=== PATIENT | female | born 1950 | race Caucasian/White ===

== ENCOUNTER 2016-12-20 17:41 | Emergency (ER) | payer MEDICARE, MEDICAID ==
[~2016-12-20] VITALS: Ht 177.8 cm; Wt 87.3 kg
[~2016-12-20 17:41] MED LIST: AMOXICILLIN 50500 MG PO; CATAPRES 0.1MG0.1 MG PO; CATAPRES0.2 MG PO; CEFTIN 250250 MG/TAB PO; CEFTIN500 MG PO; COREG 3.123.125 MG/T PO; FLAGYL500 MG PO; FLEXERIL 1010 MG/TAB PO; KLONOPIN 0.5MG0.5 MG PO; KLOR-CON 1010 MEQ PO; LASIX 20MG TABL20 MG PO; LEVAQUIN 750MG750 M1 PO; MAGNESIUM100 MG PO; MOBIC15 MG PO; NORCO 325 MG-51 TAB PO; NORCO 325 MG-7.1 TAB PO; PERCOCET 325 MG1 TA2 PO; PREDNISONE20 MG PO; PRINIVIL40 MG PO; PYRIDIUM 100MG100 MG PO; PYRIDIUM200 M1 PO; RESTORIL 77.5 MG/CAP PO; TYLENOL PM EXTR1 TA1 PO; ULTRAM 50MG TAB50 MG PO; VENTOLIN0.09 MG IH
[2016-12-20 17:44] VITALS: TEMP 98.3
[2016-12-20] MEDS ORDERED: ASPIRIN 81M81 MG/TA2 PO (17:53)
[2016-12-20] MEDS ORDERED: MAGCITRATE PO (17:58)
[2016-12-20] MEDS ORDERED: MAG-OX 400400 MG/TAB PO (18:18)
[2016-12-20 18:20] VITALS: BP 173/93; PULSE 58
[2016-12-25] MEDS ORDERED: CEPHALEXIN500 M1 PO (14:58)
== END 2016-12-20 18:27 | disposition home or self-care (01) ==
LOC: COL.ER 17:41
DX: K60.2 Anal fissure, unspecified (principal); K64.4 Residual hemorrhoidal skin tags; K59.00 Constipation, unspecified; I25.10 Atherosclerotic heart disease of native coronary artery without angina pectoris; I10 Essential (primary) hypertension; Z95.1 Presence of aortocoronary bypass graft

== ENCOUNTER 2016-12-22 12:42 | Emergency (ER) | payer MEDICARE, MEDICAID ==
[~2016-12-22] VITALS: Ht 177.8 cm; Wt 87.3 kg
[~2016-12-22 12:42] MED LIST changes: +ASPIRIN 81M81 MG/TA2 PO; +MAG-OX 400400 MG/TAB PO; +MAGCITRATE PO
[2016-12-22 12:47] VITALS: TEMP 98.5
[2016-12-22 14:06] LABS: BASO # 0.1 (0.0-0.2); BASO % 0.6 % (0.0-2.0); EOS # 0.1 (0.0-0.7); EOS % 1.2 % (0-4.0); GRAN # 6.7 (1.4-6.5); GRAN % 59.5 % (42.2-75.2); HEMATOCRIT 39.1 % (37.0-47.0); HEMOGLOBIN 13.3 g/dl (12.5-16.0); LYMPH # 3.2 (1.2-3.4); LYMPH % 28.6 % (20.0-51.0); MEAN CELL VOLUME 102 fl (80.0-100.0); MEAN CORPUSCULAR HEMOGLOBIN 35 pg (27.0-31.0); MEAN CORPUSCULAR HGB CONC 34 g/dl (33.0-37.0); MEAN PLATELET VOLUME 10.5 fl (7.4-10.4); MONO # 1.1 (0.1-0.6); MONO % 9.8 % (1.7-9.3); PLATELET COUNT 239 K/mm3 (130-400); RED BLOOD COUNT 3.83 M/mm3 (4.10-5.30); REDCELL DISTRIBUTION WIDTH-CV 14.8 % (11.5-14.5); WHITE BLOOD COUNT 11.3 K/mm3 (4.8-10.8)
[2016-12-22 14:17] LABS: ALBUMIN 3.8 gm/dL (3.5-5.0); BILIRUBIN,TOTAL 0.8 mg/dL (0.0-1.0); C-REACTIVE PROTEIN 1.3 mg/dL (0.0-0.9); CALCIUM 8.8 mg/dL (8.4-10.2); CREATININE, serum 0.6 mg/dL (0.52-1.25); POTASSIUM 3.8 mmol/L (3.4-5.0); TOTAL PROTEIN 6.8 gm/dL (6.4-8.2)
[2016-12-22 14:47] LABS: PH 7 (5-8); SQUAMOUS EPITHELIAL None Seen /hpf; URINE APPEARANCE Clear; URINE BACTERIA Rare /hpf; URINE BILIRUBIN Negative (NEGATIVE); URINE BLOOD Negative (NEGATIVE); URINE COLOR Yellow; URINE GLUCOSE Negative (NEGATIVE); URINE KETONE Negative (NEGATIVE); URINE RBC 0-2 /hpf; URINE UROBILINOGEN Negative (NEGATIVE)
[2016-12-22 14:52] LABS: URINE WBC 20-50 /hpf
[2016-12-22] MEDS ORDERED: FLAGYL500 MG PO (15:27)
[2016-12-22] MEDS ORDERED: NORCO 325 MG-51 TAB PO (15:27)
[2016-12-22] MEDS ORDERED: ZOFRAN 4MG T4 MG/TAB PO (15:27)
[2016-12-22] MEDS ORDERED: CIPRO 500MG TA500 MG PO (15:27)
[2016-12-22 16:20] VITALS: BP 186/96; PULSE 64
[2016-12-25] MEDS ORDERED: CEPHALEXIN500 M1 PO (14:58)
== END 2016-12-22 16:22 | disposition home or self-care (01) ==
LOC: COL.ER 12:42
PROVIDERS: Emergency Medicine
DX: R10.84 Generalized abdominal pain (principal); R63.0 Anorexia; R11.2 Nausea with vomiting, unspecified
CPT/HCPCS: J2405; J3010; J7030; Q9967

== ENCOUNTER 2016-12-30 11:24 | Inpatient (IN) | payer MEDICARE, MEDICAID ==
[~2016-12-30] VITALS: Ht 177.8 cm; Wt 87.3 kg
[~2016-12-30 11:24] MED LIST changes: +CEPHALEXIN500 M1 PO; +CIPRO 500MG TA500 MG PO; +ZOFRAN 4MG T4 MG/TAB PO
[2016-12-30] MEDS ORDERED: DULCOLAX TAB5 MG PO (11:58)
[2016-12-30 12:11] LABS: BASO # 0.1 (0.0-0.2); BASO % 0.8 % (0.0-2.0); EOS # 0.1 (0.0-0.7); GRAN # 6.1 (1.4-6.5); GRAN % 59.3 % (42.2-75.2); HEMATOCRIT 46.2 % (37.0-47.0); HEMOGLOBIN 15.5 g/dl (12.5-16.0); LYMPH % 29.4 % (20.0-51.0); MEAN CELL VOLUME 103 fl (80.0-100.0); MEAN CORPUSCULAR HEMOGLOBIN 35 pg (27.0-31.0); MEAN CORPUSCULAR HGB CONC 34 g/dl (33.0-37.0); MEAN PLATELET VOLUME 9.9 fl (7.4-10.4); MONO # 0.9 (0.1-0.6); PLATELET COUNT 332 K/mm3 (130-400); RED BLOOD COUNT 4.47 M/mm3 (4.10-5.30); REDCELL DISTRIBUTION WIDTH-CV 14.7 % (11.5-14.5); WHITE BLOOD COUNT 10.3 K/mm3 (4.8-10.8)
[2016-12-30 12:30] LABS: ADJUSTED CALCIUM 9.5 mg/dL (8.4-10.2); ALANINE AMINOTRANSFERASE 41 U/L (9-52); ALBUMIN 4.1 gm/dL (3.5-5.0); ALKALINE PHOSPHATASE 107 U/L (50-136); ANION GAP 10 mmol/L (7-16); BILIRUBIN,TOTAL 0.8 mg/dL (0.0-1.0); BLOOD UREA NITROGEN 8 mg/dL (7-17); C-REACTIVE PROTEIN < 0.5 mg/dL (0.0-0.9); CALCIUM 9.6 mg/dL (8.4-10.2); CARBON DIOXIDE 21 mmol/L (22-30); CHLORIDE 108 mmol/L (98-107); CREATININE, serum 0.73 mg/dL (0.52-1.25); GLUCOSE 102 mg/dL (74-106); LIPASE 51 U/L (23-300); POTASSIUM 3.9 mmol/L (3.4-5.0); SODIUM 139 mmol/L (137-145); TOTAL PROTEIN 7.6 gm/dL (6.4-8.2)
[2016-12-30 13:14] LABS: PH 6 (5-8); SQUAMOUS EPITHELIAL 0-2 /hpf; URINE APPEARANCE Hazy; URINE BACTERIA Many /hpf; URINE BILIRUBIN Negative (NEGATIVE); URINE BLOOD Negative (NEGATIVE); URINE COLOR Yellow; URINE GLUCOSE Negative (NEGATIVE); URINE KETONE Trace (NEGATIVE); URINE RBC 0-2 /hpf; URINE UROBILINOGEN Negative (NEGATIVE)
[2016-12-30 13:15] LABS: URINE WBC 20-50 /hpf
[2016-12-30 15:57] VITALS: BP 195/85; PULSE 59; TEMP 98.1
[2016-12-30] MEDS ORDERED: VITAMIN B COMPL1 SGL PO (16:01)
[2016-12-30] MEDS ORDERED: VITAMIN E 400 U4001 PO (16:02)
[2016-12-30] MEDS ORDERED: VITAMIN D 400400 IU PO (16:02)
[2016-12-30] MEDS ORDERED: VITAMIN K0.1 MG (16:03)
[2016-12-30] MEDS ORDERED: COLLAGEN PO (16:08)
[2016-12-30 16:26] VITALS: BP 150/63; PULSE 65
[2016-12-30 17:07] VITALS: BP 155/65; PULSE 58; TEMP 98.1
[2016-12-30 18:02] LABS: B-TYPE NATRIURETIC PEPTIDE 692 pg/mL (0-125)
[2016-12-30 20:55] VITALS: BP 163/67; PULSE 57; TEMP 98.5
[2016-12-31 02:20] VITALS: BP 172/76; PULSE 57; TEMP 97.5
[2016-12-31 05:04] VITALS: BP 174/77; PULSE 68; TEMP 98.2
[2016-12-31 05:51] VITALS: BP 157/51; PULSE 67
[2016-12-31 17:02] VITALS: BP 137/67; PULSE 90; TEMP 98.2
[2016-12-31 21:39] VITALS: BP 146/72; PULSE 84; TEMP 99.3
[2017-01-01 02:00] VITALS: BP 154/70; PULSE 79; TEMP 98.9
[2017-01-01 06:03] VITALS: BP 175/73; PULSE 87; TEMP 98
[2017-01-01 09:34] VITALS: BP 160/63; PULSE 75; TEMP 98.1
[2017-01-01 13:33] VITALS: BP 154/73; PULSE 80; TEMP 99.1
[2017-01-01 17:26] VITALS: BP 161/73; PULSE 80; TEMP 98.9
[2017-01-01 21:43] VITALS: BP 155/75; PULSE 81; TEMP 98.5
[2017-01-02] VITALS (10 sets, daily range): BP systolic 116–178; BP diastolic 58–86; PULSE 52–97; TEMP 97.5–98.9
== END 2017-01-02 17:25 | disposition home or self-care (01) | DRG 394 ==
LOC: COL.ER 11:24 → SURG 14:22
PROVIDERS: Emergency Medicine; Internal Medicine Gastroenterology
PROC: 0DJD8ZZ Inspection of Lower Intestinal Tract, Via Natural or Artificial Opening Endoscopic (ICD-10-PCS; 2016-12-31)
PROC: 0DBL8ZX Excision of Transverse Colon, Via Natural or Artificial Opening Endoscopic, Diagnostic (ICD-10-PCS; 2017-01-02)
PROC: 0DBM8ZX Excision of Descending Colon, Via Natural or Artificial Opening Endoscopic, Diagnostic (ICD-10-PCS; 2017-01-02)
PROC: 0DBK8ZX Excision of Ascending Colon, Via Natural or Artificial Opening Endoscopic, Diagnostic (ICD-10-PCS; principal; 2017-01-02 12:00)
DX: D12.2 Benign neoplasm of ascending colon (principal); K57.32 Diverticulitis of large intestine without perforation or abscess without bleeding; K57.30 Diverticulosis of large intestine without perforation or abscess without bleeding; D12.3 Benign neoplasm of transverse colon; D12.4 Benign neoplasm of descending colon; I10 Essential (primary) hypertension; I25.10 Atherosclerotic heart disease of native coronary artery without angina pectoris; Z95.1 Presence of aortocoronary bypass graft; Z87.891 Personal history of nicotine dependence; F41.9 Anxiety disorder, unspecified; K64.0 First degree hemorrhoids
CPT/HCPCS: 99222-AI; 99232-AI; 99233-AI; 99239; J0360; J0696; J1650; J2060; J2270; J2405; J2704; J3010; J7030; Q9967

== ENCOUNTER 2017-08-31 13:03 | Observation (INO) | payer MEDICARE, MEDICAID ==
[~2017-08-31] VITALS: Ht 177.8 cm; Wt 73.4 kg
[~2017-08-31 13:03] MED LIST changes: +COLLAGEN PO; +DULCOLAX TAB5 MG PO; +VITAMIN B COMPL1 SGL PO; +VITAMIN D 400400 IU PO; +VITAMIN E 400 U4001 PO; +VITAMIN K0.1 MG
[2017-08-31 13:51] LABS: BASO # 0.1 (0.0-0.2); BASO % 0.5 % (0.0-2.0); EOS # 0.1 (0.0-0.7); EOS % 0.6 % (0-4.0); GRAN # 6.6 (1.4-6.5); GRAN % 57.3 % (42.2-75.2); HEMATOCRIT 43.6 % (37.0-47.0); HEMOGLOBIN 14.5 g/dl (12.5-16.0); LYMPH # 3.9 (1.2-3.4); LYMPH % 33.6 % (20.0-51.0); MEAN CELL VOLUME 107 fl (80.0-100.0); MEAN CORPUSCULAR HEMOGLOBIN 36 pg (27.0-31.0); MEAN CORPUSCULAR HGB CONC 33 g/dl (33.0-37.0); MONO # 0.9 (0.1-0.6); MONO % 7.7 % (1.7-9.3); PLATELET COUNT 281 K/mm3 (130-400); RED BLOOD COUNT 4.07 M/mm3 (4.10-5.30); REDCELL DISTRIBUTION WIDTH-CV 13.6 % (11.5-14.5)
[2017-08-31 13:58] LABS: ALANINE AMINOTRANSFERASE 50 U/L (9-52); ALBUMIN 4.6 gm/dL (3.5-5.0); ALKALINE PHOSPHATASE 115 U/L (50-136); ANION GAP 11 mmol/L (7-16); AST,SGOT 52 U/L (15-37); BILIRUBIN,TOTAL 0.6 mg/dL (0.0-1.0); BLOOD UREA NITROGEN 15 mg/dL (7-17); CALCIUM 10.1 mg/dL (8.4-10.2); CARBON DIOXIDE 19 mmol/L (22-30); CHLORIDE 113 mmol/L (98-107); CREATININE, serum 0.72 mg/dL (0.52-1.25); GLUCOSE 108 mg/dL (74-106); POTASSIUM 4.3 mmol/L (3.4-5.0); SODIUM 144 mmol/L (137-145)
[2017-08-31 14:05] LABS: PROTHROMBIN TIME 11.9 SECONDS (9.7-12.8)
[2017-08-31 14:13] LABS: TROPONIN-I < 0.012 ng/mL (0.000-0.034)
[2017-08-31 17:57] VITALS: BP 152/89; PULSE 69; TEMP 98
[2017-08-31 19:22] VITALS: BP 119/55; BP 133/82; PULSE 66; PULSE 84; TEMP 97; TEMP 97.2
[2017-08-31 23:17] VITALS: BP 129/68; PULSE 80; TEMP 97.5
[2017-09-01 03:40] VITALS: BP 134/74; PULSE 74; TEMP 97.6
[2017-09-01 03:41] LABS: COLLECTION METHOD CLEAN CATCH
[2017-09-01 03:48] LABS: PH 5 (5-8); URINE APPEARANCE Clear; URINE BILIRUBIN Negative (NEGATIVE); URINE BLOOD 1+ (NEGATIVE); URINE COLOR Amber; URINE GLUCOSE Negative (NEGATIVE); URINE KETONE Negative (NEGATIVE); URINE LEUKOCYTE ESTERASE Trace (NEGATIVE); URINE NITRATE Positive (NEGATIVE); URINE PROTEIN(semi-quant) Negative (NEGATIVE); URINE UROBILINOGEN Negative (NEGATIVE)
[2017-09-01 03:53] LABS: URINE BACTERIA Many /hpf; URINE RBC None Seen /hpf
[2017-09-01 06:59] LABS: BASO # 0.1 (0.0-0.2); BASO % 1.1 % (0.0-2.0); EOS # 0.1 (0.0-0.7); GRAN # 4.8 (1.4-6.5); GRAN % 48.3 % (42.2-75.2); HEMATOCRIT 40.4 % (37.0-47.0); HEMOGLOBIN 13.3 g/dl (12.5-16.0); LYMPH # 3.9 (1.2-3.4); LYMPH % 39.7 % (20.0-51.0); MEAN CELL VOLUME 107 fl (80.0-100.0); MEAN CORPUSCULAR HEMOGLOBIN 35 pg (27.0-31.0); MEAN CORPUSCULAR HGB CONC 33 g/dl (33.0-37.0); MEAN PLATELET VOLUME 10.5 fl (7.4-10.4); MONO # 0.9 (0.1-0.6); MONO % 9.4 % (1.7-9.3); PLATELET COUNT 269 K/mm3 (130-400); RED BLOOD COUNT 3.76 M/mm3 (4.10-5.30); REDCELL DISTRIBUTION WIDTH-CV 13.7 % (11.5-14.5)
[2017-09-01 07:12] LABS: ANION GAP 5 mmol/L (7-16); BLOOD UREA NITROGEN 14 mg/dL (7-17); CALCIUM 9.7 mg/dL (8.4-10.2); CARBON DIOXIDE 23 mmol/L (22-30); CHLORIDE 111 mmol/L (98-107); CHOLESTEROL 222 mg/dL (120-200); CHOLESTEROL RISK RATIO 7.9; CREATININE, serum 0.81 mg/dL (0.52-1.25); GLUCOSE 96 mg/dL (74-106); HDL CHOLESTEROL 28 mg/dL; LDL CHOLESTEROL 148 mg/dL; POTASSIUM 4.1 mmol/L (3.4-5.0); SODIUM 139 mmol/L (137-145); TRIGLYCERIDE 229 mg/dL
[2017-09-01 07:24] LABS: TROPONIN-I < 0.012 ng/mL (0.000-0.034)
[2017-09-01 07:45] VITALS: BP 117/74; PULSE 66; TEMP 97
[2017-09-01 08:32] VITALS: BP 134/74; PULSE 74
[2017-09-01 09:51] VITALS: BP 128/60; PULSE 94
[2017-09-01 09:52] VITALS: BP 145/69; PULSE 81
[2017-09-01 10:30] VITALS: BP 133/77; PULSE 79; TEMP 98.6
[2017-09-01] MEDS ORDERED: IMDUR 60MG60 MG/TAB PO (15:04)
[2017-09-01] MEDS ORDERED: NITROSTAT0.4 MG/TAB SL (15:04)
[2017-09-01] MEDS ORDERED: BACTRIM DS 8001 TAB PO (15:19)
== END 2017-09-01 16:12 | disposition home or self-care (01) ==
LOC: COL.ER 13:03 → MEDICAL 16:49
PROVIDERS: Emergency Medicine; Physician Assistant
DX: R07.9 Chest pain, unspecified (principal); I25.10 Atherosclerotic heart disease of native coronary artery without angina pectoris; I10 Essential (primary) hypertension; F41.9 Anxiety disorder, unspecified; N39.0 Urinary tract infection, site not specified; E78.5 Hyperlipidemia, unspecified; I25.2 Old myocardial infarction; Z79.82 Long term (current) use of aspirin; Z95.1 Presence of aortocoronary bypass graft; Z87.891 Personal history of nicotine dependence; Z88.8 Allergy status to other drugs, medicaments and biological substances; D72.829 Elevated white blood cell count, unspecified; I45.10 Unspecified right bundle-branch block
CPT/HCPCS: 99222-AI; A9502; G0378; J0696; J1650; J2270; J2405; J2785

== ENCOUNTER → 2018-01-11 | Outpatient (CLI) | payer MEDICARE, MEDICAID ==
[~2018-01-11] MED LIST changes: +BACTRIM DS 8001 TAB PO; +IMDUR 60MG60 MG/TAB PO; +NITROSTAT0.4 MG/TAB SL
== END ==
LOC: COL.LAB 10:55
DX: Z01.812 Encounter for preprocedural laboratory examination (principal)

== ENCOUNTER 2018-02-06 15:37 | Emergency (ER) | payer MEDICARE, MEDICAID ==
[~2018-02-06] VITALS: Ht 175.3 cm; Wt 68.2 kg
[2018-02-06 15:45] VITALS: BP 131/60; PULSE 80; TEMP 99.4
== END 2018-02-06 16:37 | disposition home or self-care (01) ==
LOC: COL.ER 15:37
DX: Z48.00 Encounter for change or removal of nonsurgical wound dressing (principal); I25.10 Atherosclerotic heart disease of native coronary artery without angina pectoris; Z95.1 Presence of aortocoronary bypass graft; Z96.652 Presence of left artificial knee joint; Z79.82 Long term (current) use of aspirin

== ENCOUNTER 2018-03-31 13:23 | Emergency (ER) | payer MEDICARE, MEDICAID ==
[~2018-03-31] VITALS: Ht 177.8 cm; Wt 68.6 kg
[2018-03-31 13:35] VITALS: TEMP 98.3
[2018-03-31 14:05] LABS: BASO # 0.1 (0.0-0.2); EOS # 0.1 (0.0-0.7); EOS % 1.4 % (0-4.0); GRAN # 4.2 (1.4-6.5); GRAN % 50.2 % (42.2-75.2); HEMATOCRIT 37.8 % (37.0-47.0); HEMOGLOBIN 12.4 g/dl (12.5-16.0); LYMPH # 3.2 (1.2-3.4); LYMPH % 38.4 % (20.0-51.0); MEAN CELL VOLUME 104 fl (80.0-100.0); MEAN CORPUSCULAR HEMOGLOBIN 34 pg (27.0-31.0); MEAN CORPUSCULAR HGB CONC 33 g/dl (33.0-37.0); MEAN PLATELET VOLUME 9.7 fl (7.4-10.4); MONO # 0.7 (0.1-0.6); MONO % 8.8 % (1.7-9.3); PLATELET COUNT 306 K/mm3 (130-400); RED BLOOD COUNT 3.65 M/mm3 (4.10-5.30); REDCELL DISTRIBUTION WIDTH-CV 14.1 % (11.5-14.5)
[2018-03-31 14:07] LABS: PROTHROMBIN TIME 10.8 SECONDS (9.7-12.8)
[2018-03-31 14:09] LABS: ALANINE AMINOTRANSFERASE 20 U/L (9-52); ALKALINE PHOSPHATASE 91 U/L (50-136); ANION GAP 11 mmol/L (7-16); AST,SGOT 22 U/L (15-37); BILIRUBIN,TOTAL 0.3 mg/dL (0.0-1.0); BLOOD UREA NITROGEN 10 mg/dL (7-17); CALCIUM 9.4 mg/dL (8.4-10.2); CARBON DIOXIDE 21 mmol/L (22-30); CHLORIDE 109 mmol/L (98-107); CREATININE, serum 0.42 mg/dL (0.52-1.25); GLUCOSE 92 mg/dL (74-106); LIPASE 84 U/L (23-300); POTASSIUM 3.6 mmol/L (3.4-5.0); SODIUM 141 mmol/L (137-145); TOTAL PROTEIN 7.3 gm/dL (6.4-8.2)
[2018-03-31 14:10] LABS: PARTIAL THROMBOPLASTIN TIME 38.3 SECONDS (26.0-37.0)
[2018-03-31] MEDS ORDERED: NORVASC 10MG10 MG PO (14:12)
[2018-03-31] MEDS ORDERED: NORCO 325 MG-51 TAB PO (14:13)
[2018-03-31] MEDS ORDERED: LEXAPRO20 MG PO (14:13)
[2018-03-31 14:24] LABS: TROPONIN-I < 0.012 ng/mL (0.000-0.034)
[2018-03-31 17:32] VITALS: BP 151/70; PULSE 63
[2018-03-31] MEDS ORDERED: FLEXERIL5 MG PO (17:35)
== END 2018-03-31 17:43 | disposition home or self-care (01) ==
LOC: COL.ER 13:23
PROVIDERS: Emergency Medicine
DX: S16.1XXA Strain of muscle, fascia and tendon at neck level, initial encounter (principal); R07.9 Chest pain, unspecified; I25.10 Atherosclerotic heart disease of native coronary artery without angina pectoris; Z95.1 Presence of aortocoronary bypass graft; Z79.82 Long term (current) use of aspirin; X58.XXXA Exposure to other specified factors, initial encounter
CPT/HCPCS: J7030

== ENCOUNTER 2018-07-02 18:57 | Emergency (ER) | payer MEDICARE, MEDICAID ==
[~2018-07-02] VITALS: Ht 177.8 cm; Wt 72.3 kg
[~2018-07-02 18:57] MED LIST changes: +FLEXERIL5 MG PO; +LEXAPRO20 MG PO; +NORVASC 10MG10 MG PO
[2018-07-02 19:02] VITALS: TEMP 99.2
[2018-07-02 20:07] LABS: COLLECTION METHOD CLEAN CATCH
[2018-07-02 20:14] LABS: BASO # 0.1 (0.0-0.2); BASO % 0.9 % (0.0-2.0); EOS # 0.2 (0.0-0.7); EOS % 1.6 % (0-4.0); GRAN # 4.8 (1.4-6.5); GRAN % 51.1 % (42.2-75.2); HEMATOCRIT 40.1 % (37.0-47.0); HEMOGLOBIN 13.4 g/dl (12.5-16.0); LYMPH # 3.6 (1.2-3.4); LYMPH % 38.7 % (20.0-51.0); MEAN CELL VOLUME 102 fl (80.0-100.0); MEAN CORPUSCULAR HEMOGLOBIN 34 pg (27.0-31.0); MEAN CORPUSCULAR HGB CONC 33 g/dl (33.0-37.0); MEAN PLATELET VOLUME 9.6 fl (7.4-10.4); MONO # 0.7 (0.1-0.6); MONO % 7.5 % (1.7-9.3); PLATELET COUNT 314 K/mm3 (130-400); RED BLOOD COUNT 3.94 M/mm3 (4.10-5.30); REDCELL DISTRIBUTION WIDTH-CV 14.2 % (11.5-14.5)
[2018-07-02 20:31] LABS: ALANINE AMINOTRANSFERASE 17 U/L (9-52); ALBUMIN 4.1 gm/dL (3.5-5.0); ALKALINE PHOSPHATASE 102 U/L (50-136); ANION GAP 6 mmol/L (7-16); AST,SGOT 22 U/L (15-37); BILIRUBIN,TOTAL 0.2 mg/dL (0.0-1.0); BLOOD UREA NITROGEN 10 mg/dL (7-17); C-REACTIVE PROTEIN < 0.5 mg/dL (0.0-0.9); CALCIUM 9.9 mg/dL (8.4-10.2); CARBON DIOXIDE 25 mmol/L (22-30); CHLORIDE 112 mmol/L (98-107); CREATININE, serum 0.57 mg/dL (0.52-1.25); GLUCOSE 90 mg/dL (74-106); LIPASE 72 U/L (23-300); POTASSIUM 3.7 mmol/L (3.4-5.0); SODIUM 143 mmol/L (137-145); TOTAL PROTEIN 7.3 gm/dL (6.4-8.2)
[2018-07-02 20:32] LABS: MUCOUS Present /lpf; PH 5 (5-8); SQUAMOUS EPITHELIAL 0-2 /hpf; URINE APPEARANCE Clear; URINE BACTERIA Moderate /hpf; URINE BILIRUBIN Negative (NEGATIVE); URINE BLOOD Negative (NEGATIVE); URINE COLOR Yellow; URINE GLUCOSE Negative (NEGATIVE); URINE KETONE Negative (NEGATIVE); URINE LEUKOCYTE ESTERASE Trace (NEGATIVE); URINE NITRATE Positive (NEGATIVE); URINE PROTEIN(semi-quant) Negative (NEGATIVE); URINE RBC 0-2 /hpf; URINE UROBILINOGEN Negative (NEGATIVE)
[2018-07-02 20:39] LABS: TROPONIN-I < 0.012 ng/mL (0.000-0.034)
[2018-07-02] MEDS ORDERED: OMNICEF 300MG300 MG PO (21:20)
[2018-07-02] MEDS ORDERED: ZOFRAN 4MG T4 MG/TAB PO (21:20)
[2018-07-02 21:45] VITALS: BP 160/67; PULSE 78
== END 2018-07-02 21:46 | disposition home or self-care (01) ==
LOC: COL.ER 18:57
PROVIDERS: Emergency Medicine
DX: N39.0 Urinary tract infection, site not specified (principal); R19.7 Diarrhea, unspecified; R11.10 Vomiting, unspecified; I10 Essential (primary) hypertension; I25.10 Atherosclerotic heart disease of native coronary artery without angina pectoris; F32.9 Major depressive disorder, single episode, unspecified; F41.9 Anxiety disorder, unspecified; Z95.5 Presence of coronary angioplasty implant and graft; Z87.891 Personal history of nicotine dependence; Z79.82 Long term (current) use of aspirin
CPT/HCPCS: A4216; J0696; J2405; J3010; J7030; Q9967

== ENCOUNTER 2018-07-27 22:08 | Emergency (ER) | payer MEDICARE, MEDICAID ==
[~2018-07-27] VITALS: Ht 177.8 cm; Wt 73.6 kg
[~2018-07-27 22:08] MED LIST changes: +OMNICEF 300MG300 MG PO
[2018-07-27 22:11] VITALS: TEMP 97.6
[2018-07-27] MEDS ORDERED: BACTRIM DS 8001 TAB PO (22:23)
[2018-07-27 22:24] LABS: BASO # 0.1 (0.0-0.2); EOS # 0.2 (0.0-0.7); EOS % 2.1 % (0-4.0); GRAN # 3.9 (1.4-6.5); GRAN % 45.5 % (42.2-75.2); HEMATOCRIT 42.2 % (37.0-47.0); HEMOGLOBIN 13.6 g/dl (12.5-16.0); LYMPH # 3.8 (1.2-3.4); LYMPH % 43.8 % (20.0-51.0); MEAN CELL VOLUME 106 fl (80.0-100.0); MEAN CORPUSCULAR HEMOGLOBIN 34 pg (27.0-31.0); MEAN CORPUSCULAR HGB CONC 32 g/dl (33.0-37.0); MEAN PLATELET VOLUME 9.9 fl (7.4-10.4); MONO # 0.6 (0.1-0.6); MONO % 7.4 % (1.7-9.3); PLATELET COUNT 304 K/mm3 (130-400); RED BLOOD COUNT 3.99 M/mm3 (4.10-5.30); REDCELL DISTRIBUTION WIDTH-CV 13.7 % (11.5-14.5)
[2018-07-27 22:33] LABS: ALANINE AMINOTRANSFERASE 25 U/L (9-52); ALBUMIN 4.7 gm/dL (3.5-5.0); ALKALINE PHOSPHATASE 127 U/L (50-136); ANION GAP 10 mmol/L (7-16); AST,SGOT 39 U/L (15-37); BILIRUBIN,TOTAL 0.2 mg/dL (0.0-1.0); BLOOD UREA NITROGEN 21 mg/dL (7-17); CALCIUM 10.6 mg/dL (8.4-10.2); CARBON DIOXIDE 20 mmol/L (22-30); CHLORIDE 111 mmol/L (98-107); GLUCOSE 89 mg/dL (74-106); INR 0.9 (0.8-3.0); LIPASE 178 U/L (23-300); POTASSIUM 4.5 mmol/L (3.4-5.0); PROTHROMBIN TIME 10.2 SECONDS (9.7-12.8); SODIUM 141 mmol/L (137-145); TOTAL PROTEIN 8.3 gm/dL (6.4-8.2)
[2018-07-27 22:34] LABS: C-REACTIVE PROTEIN < 0.5 mg/dL (0.0-0.9)
[2018-07-27 22:36] LABS: PARTIAL THROMBOPLASTIN TIME 38.2 SECONDS (26.0-37.0)
[2018-07-27 22:42] LABS: TROPONIN-I 0.017 ng/mL (0.000-0.034)
[2018-07-28 02:30] VITALS: BP 144/74; PULSE 59
== END 2018-07-28 02:42 | disposition short-term general hospital (02) ==
LOC: COL.ER 22:08
PROVIDERS: Emergency Medicine
DX: I21.4 Non-ST elevation (NSTEMI) myocardial infarction (principal); I10 Essential (primary) hypertension; Z90.49 Acquired absence of other specified parts of digestive tract; Z90.89 Acquired absence of other organs; Z90.710 Acquired absence of both cervix and uterus; Z87.891 Personal history of nicotine dependence
CPT/HCPCS: J1644; J2270; J2405; Q9967

== ENCOUNTER 2018-08-12 12:07 | Emergency (ER) | payer MEDICARE, MEDICAID ==
[~2018-08-12] VITALS: Ht 177.8 cm; Wt 74.5 kg
[2018-08-12 12:09] VITALS: TEMP 97.1
[2018-08-12 12:35] LABS: BASO % 0.5 % (0.0-2.0); EOS # 0.2 (0.0-0.7); EOS % 1.8 % (0-4.0); GRAN # 5.1 (1.4-6.5); HEMOGLOBIN 10.8 g/dl (12.5-16.0); LYMPH # 2.4 (1.2-3.4); LYMPH % 28.4 % (20.0-51.0); MEAN CELL VOLUME 106 fl (80.0-100.0); MEAN CORPUSCULAR HEMOGLOBIN 34 pg (27.0-31.0); MEAN CORPUSCULAR HGB CONC 32 g/dl (33.0-37.0); MEAN PLATELET VOLUME 10.3 fl (7.4-10.4); MONO # 0.8 (0.1-0.6); MONO % 9.1 % (1.7-9.3); PLATELET COUNT 221 K/mm3 (130-400); RED BLOOD COUNT 3.15 M/mm3 (4.10-5.30); REDCELL DISTRIBUTION WIDTH-CV 13.6 % (11.5-14.5)
[2018-08-12 12:45] LABS: HEMATOCRIT 33.5 % (37.0-47.0)
[2018-08-12] MEDS ORDERED: ASPIRIN 81M81 MG/TA2 PO (12:45)
[2018-08-12 12:46] LABS: ALANINE AMINOTRANSFERASE 45 U/L (9-52); ALBUMIN 3.7 gm/dL (3.5-5.0); ALKALINE PHOSPHATASE 88 U/L (50-136); ANION GAP 5 mmol/L (7-16); AST,SGOT 35 U/L (15-37); BILIRUBIN,TOTAL 0.2 mg/dL (0.0-1.0); BLOOD UREA NITROGEN 10 mg/dL (7-17); CALCIUM 9.2 mg/dL (8.4-10.2); CARBON DIOXIDE 25 mmol/L (22-30); CHLORIDE 112 mmol/L (98-107); CREATININE, serum 0.58 mg/dL (0.52-1.25); GLUCOSE 91 mg/dL (74-106); POTASSIUM 4.2 mmol/L (3.4-5.0); SODIUM 142 mmol/L (137-145); TOTAL PROTEIN 6.4 gm/dL (6.4-8.2)
[2018-08-12] MEDS ORDERED: LIPITOR 40MG TA40 MG PO (12:46)
[2018-08-12] MEDS ORDERED: COREG 6.256.25 MG/TA PO (12:47)
[2018-08-12] MEDS ORDERED: PLAVIX 75MG TAB75 MG PO (12:47)
[2018-08-12] MEDS ORDERED: CATAPRES 0.1MG0.1 MG PO (12:48)
[2018-08-12 12:57] LABS: TROPONIN-I < 0.012 ng/mL (0.000-0.035)
[2018-08-12] MEDS ORDERED: HCTZ 25MG TAB25 MG PO (13:00)
[2018-08-12] MEDS ORDERED: IMDUR 60MG60 MG/TAB PO (16:03)
[2018-08-12 16:31] VITALS: BP 116/51; PULSE 48
== END 2018-08-12 16:13 | disposition home or self-care (01) ==
LOC: COL.ER 12:07
PROVIDERS: Physician Assistant
DX: R07.89 Other chest pain (principal); I10 Essential (primary) hypertension; F32.9 Major depressive disorder, single episode, unspecified; I25.10 Atherosclerotic heart disease of native coronary artery without angina pectoris; F41.9 Anxiety disorder, unspecified; Z90.49 Acquired absence of other specified parts of digestive tract; Z90.89 Acquired absence of other organs; Z87.891 Personal history of nicotine dependence; Z90.710 Acquired absence of both cervix and uterus; Z98.890 Other specified postprocedural states; Z79.82 Long term (current) use of aspirin; Z79.02 Long term (current) use of antithrombotics/antiplatelets
CPT/HCPCS: J2270; J2405; J7030

== ENCOUNTER 2018-08-23 11:27 | Emergency (ER) | payer MEDICARE, MEDICAID ==
[~2018-08-23] VITALS: Ht 177.8 cm; Wt 72.3 kg
[~2018-08-23 11:27] MED LIST changes: +COREG 6.256.25 MG/TA PO; +HCTZ 25MG TAB25 MG PO; +LIPITOR 40MG TA40 MG PO; +PLAVIX 75MG TAB75 MG PO
[2018-08-23 12:10] LABS: BASO # 0.1 (0.0-0.2); BASO % 0.6 % (0.0-2.0); EOS # 0.1 (0.0-0.7); EOS % 1.7 % (0-4.0); GRAN # 4.4 (1.4-6.5); GRAN % 53.2 % (42.2-75.2); HEMOGLOBIN 12.7 g/dl (12.5-16.0); LYMPH # 3.1 (1.2-3.4); LYMPH % 37.6 % (20.0-51.0); MEAN CELL VOLUME 103 fl (80.0-100.0); MEAN CORPUSCULAR HEMOGLOBIN 34 pg (27.0-31.0); MEAN CORPUSCULAR HGB CONC 33 g/dl (33.0-37.0); MEAN PLATELET VOLUME 9.7 fl (7.4-10.4); MONO # 0.6 (0.1-0.6); MONO % 6.7 % (1.7-9.3); PLATELET COUNT 219 K/mm3 (130-400); RED BLOOD COUNT 3.69 M/mm3 (4.10-5.30); REDCELL DISTRIBUTION WIDTH-CV 13.6 % (11.5-14.5)
[2018-08-23 12:19] LABS: CALCIUM 9.9 mg/dL (8.4-10.2); CREATININE, serum 0.82 mg/dL (0.52-1.25); POTASSIUM 4.2 mmol/L (3.4-5.0)
[2018-08-23 12:24] LABS: PROTHROMBIN TIME 11.6 SECONDS (9.7-12.8)
[2018-08-23 12:27] LABS: PARTIAL THROMBOPLASTIN TIME 39.2 SECONDS (26.0-37.0)
[2018-08-23 12:35] VITALS: BP 134/61; PULSE 64; TEMP 98.5
== END 2018-08-23 12:30 | disposition home or self-care (01) ==
LOC: COL.ER 11:27
PROVIDERS: Emergency Medicine
DX: S51.811A Laceration without foreign body of right forearm, initial encounter (principal); I25.10 Atherosclerotic heart disease of native coronary artery without angina pectoris; Z23 Encounter for immunization; Z79.82 Long term (current) use of aspirin; X58.XXXA Exposure to other specified factors, initial encounter; Y92.009 Unspecified place in unspecified non-institutional (private) residence as the place of occurrence of the external cause

== ENCOUNTER 2018-09-17 11:17 | Emergency (ER) | payer MEDICARE, MEDICAID ==
[~2018-09-17] VITALS: Ht 177.8 cm; Wt 74.1 kg
[2018-09-17 11:22] VITALS: TEMP 97
[2018-09-17 12:04] LABS: HEMOGLOBIN 11.4 g/dl (12.5-16.0); MEAN CELL VOLUME 101 fl (80.0-100.0); MEAN CORPUSCULAR HEMOGLOBIN 34 pg (27.0-31.0); MEAN CORPUSCULAR HGB CONC 33 g/dl (33.0-37.0); PLATELET COUNT 262 K/mm3 (130-400); REDCELL DISTRIBUTION WIDTH-CV 13.3 % (11.5-14.5)
[2018-09-17 12:09] LABS: HEMATOCRIT 34.4 % (37.0-47.0)
[2018-09-17 12:21] LABS: ALBUMIN 3.8 gm/dL (3.5-5.0); BILIRUBIN,TOTAL 0.3 mg/dL (0.0-1.0); C-REACTIVE PROTEIN 1.2 mg/dL (0.0-0.9); CALCIUM 9.4 mg/dL (8.4-10.2); CREATININE, serum 0.63 mg/dL (0.52-1.25); POTASSIUM 4.1 mmol/L (3.4-5.0); TOTAL PROTEIN 6.7 gm/dL (6.4-8.2)
[2018-09-17 12:36] LABS: BAND 3 % (0-10); BASOPHIL 1 % (0-2); EOSINOPHIL 2 % (0-4); LYMPHOCYTE 23 % (20.0-51.0); NEUTROPHILS 61 % (42.0-75.2); PLATELET ESTIMATE NORMAL (NORMAL)
[2018-09-17] MEDS ORDERED: NORCO 325 MG-51 TAB PO (13:29)
[2018-09-17 13:41] VITALS: BP 131/84; PULSE 62
== END 2018-09-17 13:41 | disposition home or self-care (01) ==
LOC: COL.ER 11:17
PROVIDERS: Family Medicine
DX: I73.9 Peripheral vascular disease, unspecified (principal); M79.604 Pain in right leg; I10 Essential (primary) hypertension; E78.5 Hyperlipidemia, unspecified; F17.210 Nicotine dependence, cigarettes, uncomplicated; Z79.82 Long term (current) use of aspirin; Z95.5 Presence of coronary angioplasty implant and graft; Z79.02 Long term (current) use of antithrombotics/antiplatelets

== ENCOUNTER 2018-10-08 11:50 | Inpatient (IN) | payer MEDICARE, MEDICAID ==
[~2018-10-08] VITALS: Ht 175.3 cm; Wt 82.4 kg
[2018-10-08 12:59] LABS: MEAN CELL VOLUME 101 fl (80.0-100.0); MEAN CORPUSCULAR HEMOGLOBIN 33 pg (27.0-31.0); MEAN CORPUSCULAR HGB CONC 33 g/dl (33.0-37.0); MEAN PLATELET VOLUME 9.8 fl (7.4-10.4); PLATELET COUNT 213 K/mm3 (130-400); RED BLOOD COUNT 3.31 M/mm3 (4.10-5.30); REDCELL DISTRIBUTION WIDTH-CV 13.4 % (11.5-14.5)
[2018-10-08 13:03] LABS: INR 1.2 (0.8-3.0); PROTHROMBIN TIME 13.3 SECONDS (9.7-12.8)
[2018-10-08 13:05] LABS: HEMATOCRIT 33.3 % (37.0-47.0)
[2018-10-08 13:11] LABS: ALANINE AMINOTRANSFERASE 102 U/L (9-52); ALBUMIN 3.6 gm/dL (3.5-5.0); ALKALINE PHOSPHATASE 105 U/L (50-136); ANION GAP 11 mmol/L (7-16); AST,SGOT 222 U/L (15-37); BILIRUBIN,TOTAL 0.3 mg/dL (0.0-1.0); BLOOD UREA NITROGEN 14 mg/dL (7-17); CALCIUM 9.2 mg/dL (8.4-10.2); CARBON DIOXIDE 21 mmol/L (22-30); CHLORIDE 107 mmol/L (98-107); CREATININE, serum 0.78 (0.52-1.25); GLUCOSE 116 mg/dL (74-106); LIPASE 46 U/L (23-300); POTASSIUM 3.3 mmol/L (3.4-5.0); SODIUM 139 mmol/L (137-145); TOTAL PROTEIN 6.4 gm/dL (6.4-8.2)
[2018-10-08 13:23] LABS: TROPONIN-I < 0.012 ng/mL (0.000-0.035)
[2018-10-08 13:40] LABS: BAND 3 % (0-10); EOSINOPHIL 1 % (0-4); LYMPHOCYTE 2 % (20.0-51.0); NEUTROPHILS 92 % (42.0-75.2); PLATELET ESTIMATE NORMAL (NORMAL)
[2018-10-08 16:26] LABS: COLLECTION METHOD CLEAN CATCH
[2018-10-08 16:50] LABS: MUCOUS Present /lpf; PH 5 (5-8); SQUAMOUS EPITHELIAL 0-2 /hpf; URINE APPEARANCE Clear; URINE BACTERIA None Seen /hpf; URINE BILIRUBIN Negative (NEGATIVE); URINE BLOOD Negative (NEGATIVE); URINE COLOR Yellow; URINE GLUCOSE Negative (NEGATIVE); URINE KETONE Negative (NEGATIVE); URINE LEUKOCYTE ESTERASE Negative (NEGATIVE); URINE NITRATE Negative (NEGATIVE); URINE PROTEIN(semi-quant) Negative (NEGATIVE); URINE RBC 0-2 /hpf; URINE UROBILINOGEN Negative (NEGATIVE)
--- NOTE | 2018-10-08 17:00 | NUR ---
Pt arrived to floor at this time via cart. Will orient to floor and continue to monitor.
[2018-10-08] MEDS ORDERED: PHENERGAN 25 TA25 MG PO (17:14)
[2018-10-08] MEDS ORDERED: TYLENOL PM EXTR1 TA1 PO (17:14)
[2018-10-08] MEDS ORDERED: ULTRAM 50MG TAB50 MG PO (17:15)
[2018-10-08 17:33] VITALS: BP 102/40; PULSE 71; TEMP 98.6
--- NOTE | 2018-10-08 18:58 | NUR ---
Assessment completed. PT is feeling very cold and generalized achiness from influenza. Denies any respiratory complaints. at bedside. IVF to RW. Will give bedside shift report to nightift nurse who will resume care.
[2018-10-08 19:31] VITALS: BP 112/40; PULSE 69; TEMP 100.1
--- NOTE | 2018-10-08 19:39 | NUR ---
PT SITTING IN BED A+OX4 WITH FAMILY AT [facility]. PT REPORTS HURTING ALL OVER, FEELING WARM. PRN MEDS GIVEN. PT REPORTS FEELING SOA- VITALS STABLE. LUNG SOUNDS- BILATERAL BASIS COARSE CRACKLES. NO NEEDS AT THIS TIME. CALL LIGHT IN REACH
[2018-10-08 22:36] VITALS: BP 94/44; PULSE 66; TEMP 98.6
--- NOTE | 2018-10-08 22:40 | NUR ---
PT REPORTS 10/10 PAIN IN CHEST AND BODY. GAVE 2 NORCO, TO CATCH UP ON THE PAIN. ULTRAM GAVE NO RELIEF. NO NEEDS AT THIS TIME. CALL LIGHT INREACH
[2018-10-09] VITALS (7 sets, daily range): BP systolic 118–133; BP diastolic 36–52; PULSE 63–77; TEMP 98.3–101.9
--- NOTE | 2018-10-09 02:57 | NUR ---
pt reports GILLESPIE, and nausea. this nurse gave tylenol and called LUCIANO Abbott- no answer. will continue to try to contact for nausea intervention.
--- NOTE | 2018-10-09 06:04 | NUR ---
pt had an uneventful night. reported pain in the "whole body"- prn meds given- norco was reported to have the best outcome of 01/19. one episode of nausea- prn meds given and reported relief. on droplet precautions- pt teaching given. pt walked to bathroom- stable gate. no needs at this time. call light in reach
--- NOTE | 2018-10-09 06:54 | NUR ---
report given to FAB Carranza. pt reports no needs
[2018-10-09 08:29] LABS: BASO % 0.3 % (0.0-2.0); EOS # 0.2 (0.0-0.7); EOS % 2.9 % (0-4.0); GRAN # 5.1 (1.4-6.5); GRAN % 86.7 % (42.2-75.2); HEMOGLOBIN 10.5 g/dl (12.5-16.0); LYMPH # 0.3 (1.2-3.4); LYMPH % 5.5 % (20.0-51.0); MEAN CELL VOLUME 102 fl (80.0-100.0); MEAN CORPUSCULAR HEMOGLOBIN 33 pg (27.0-31.0); MEAN CORPUSCULAR HGB CONC 32 g/dl (33.0-37.0); MEAN PLATELET VOLUME 10.1 fl (7.4-10.4); MONO # 0.3 (0.1-0.6); MONO % 4.3 % (1.7-9.3); PLATELET COUNT 187 K/mm3 (130-400); REDCELL DISTRIBUTION WIDTH-CV 13.5 % (11.5-14.5)
[2018-10-09 08:30] LABS: HEMATOCRIT 32.5 % (37.0-47.0)
[2018-10-09 08:38] LABS: ALANINE AMINOTRANSFERASE 128 U/L (9-52); ALBUMIN 3.4 gm/dL (3.5-5.0); ALKALINE PHOSPHATASE 156 U/L (50-136); ANION GAP 6 mmol/L (7-16); AST,SGOT 182 U/L (15-37); BILIRUBIN,TOTAL 0.5 mg/dL (0.0-1.0); BLOOD UREA NITROGEN 14 mg/dL (7-17); CALCIUM 9.1 mg/dL (8.4-10.2); CARBON DIOXIDE 21 mmol/L (22-30); CHLORIDE 109 mmol/L (98-107); CREATININE, serum 0.71 (0.52-1.25); GLUCOSE 90 mg/dL (74-106); MAGNESIUM 2.1 mg/dL (1.6-2.3); POTASSIUM 3.9 mmol/L (3.4-5.0); SODIUM 137 mmol/L (137-145); TOTAL PROTEIN 6.3 gm/dL (6.4-8.2)
[2018-10-09 08:51] LABS: TROPONIN-I < 0.012 ng/mL (0.000-0.035)
--- NOTE | 2018-10-09 10:00 | NUR ---
Pt alert and oriented. Pt gets hot and cold at times. Pt pain managed with PRN NORCO but wears off too soon and has breakthrough pain. Pt spouse at bedside. Pt IV patent and no infiltration. Pt has call light in reach.
--- NOTE | 2018-10-09 11:45 | NUR ---
Patient was sleeping.
--- NOTE | 2018-10-09 13:46 | NUR ---
Plan: Patient plans to return home with her Gunner and Daughter Rut as care support. Assessment: Patient reports that she resides in [facility] and uses [facility] for medications. Patient reports PCP being Dr. Oliver. Patient reports DPOA as both dtr and . Patient denies having any DME, medicatons, or care concerns. Patient denies needing any home health and stated DTR is a nurse. Action: No additional needs identified and SW educated of resources in community.
--- NOTE | 2018-10-09 19:13 | NUR ---
Pt rates pain 9/10 and feeling headache, chills, and nausea. Pt started back on NS at 60ml/hr per orders. Pt has family at bedside and call light in reach. Pain managed with PRN NOrco and fever too. Pt does not want to order any supper. Pt encouraged to drink PO fluids too.
--- NOTE | 2018-10-09 21:06 | NUR ---
PT RESTING IN BED A+OX4. REPORTS 10/10 PAIN ALL OVER. PT ANXIOUS, STATING "I CANNOT MAKE IT, LET ME ". PT NAUSEATED. GIVEN PRN PAIN AND NAUSEA MEDS. SHIFT ASSESSMENT COMPLETE. NO NEEDS AT THIS TIME. CALL LIGHT INREACH
--- NOTE | 2018-10-09 21:18 | NUR ---
PT AT 87% AND REPORTS SOA. THIS NURSE PLACE PT ON 3L VIA NC PT NOW AT 91%.
[2018-10-10] VITALS (12 sets, daily range): BP systolic 98–146; BP diastolic 43–86; PULSE 65–82; TEMP 98.1–102.1
--- NOTE | 2018-10-10 01:19 | NUR ---
pt has nausea w/o vomiting- prn phenergan given. pain 04/21- prn morphine given and pt reports relief of /10. pt on 3L via NC. vitals stable. temp 99.1. no needs at this time. call light in reach.
--- NOTE | 2018-10-10 06:21 | NUR ---
pt pain meds changed d/t elevated liver enzymes. reports 5/10 relief with morphine throughout night. pt had 3 episodes of nausea-reported no relief with phenergan. reported moderate relief with zofran. IV flufhing well. tele called reporting a 16 run of SVT- vitals, pt reports no symtoms. [employer]OR notified. lab called to retrieve AM labs. no new oders at this time. pt rested off and on throughout night with daughter at bedside. reports no needs at this time. will continue to monitor. call light inreach
--- NOTE | 2018-10-10 06:46 | NUR ---
report given to FAB Carranza. pt reports no needs at this time
[2018-10-10 06:56] LABS: BASO % 0.3 % (0.0-2.0); EOS # 0.1 (0.0-0.7); EOS % 0.5 % (0-4.0); GRAN # 9.2 (1.4-6.5); GRAN % 83.7 % (42.2-75.2); HEMOGLOBIN 10.2 g/dl (12.5-16.0); LYMPH # 1.2 (1.2-3.4); LYMPH % 10.9 % (20.0-51.0); MEAN CELL VOLUME 100 fl (80.0-100.0); MEAN CORPUSCULAR HEMOGLOBIN 33 pg (27.0-31.0); MEAN CORPUSCULAR HGB CONC 33 g/dl (33.0-37.0); MEAN PLATELET VOLUME 10.8 fl (7.4-10.4); MONO # 0.5 (0.1-0.6); MONO % 4.1 % (1.7-9.3); PLATELET COUNT 158 K/mm3 (130-400); RED BLOOD COUNT 3.11 M/mm3 (4.10-5.30); REDCELL DISTRIBUTION WIDTH-CV 13.5 % (11.5-14.5)
[2018-10-10 06:57] LABS: HEMATOCRIT 31.1 % (37.0-47.0)
[2018-10-10 07:15] LABS: ALBUMIN 3.1 gm/dL (3.5-5.0); BILIRUBIN,TOTAL 0.3 mg/dL (0.0-1.0); CALCIUM 8.8 mg/dL (8.4-10.2); CREATININE, serum 0.53 (0.52-1.25); POTASSIUM 3.5 mmol/L (3.4-5.0); TOTAL PROTEIN 5.9 gm/dL (6.4-8.2)
--- NOTE | 2018-10-10 11:14 | NUR ---
Pt stable this am. Pt reports pain all over managed with PRN Morphine and Motrin as ordered. Pt IV patent and no infiltration noted. Pt took a shower this am. Pt denies dizziness at rest. Pt SOB with activity and remains on 2L oxygen via nasal cannula to keep saturations above 90%. Pt remains on telemetry and normal sinus for this shift. Pt alert and oriented and has call light in reach and droplet precautions in place.
--- NOTE | 2018-10-10 18:01 | NUR ---
Dr Ireland notified of consult and updated on pt status. will plan to see pt tomorrow.
--- NOTE | 2018-10-10 18:02 | NUR ---
Left message with Dr. Braun regarding infectious disease consult.
--- NOTE | 2018-10-10 18:39 | NUR ---
Pt alert and oriented this shift. Pt has anxiety with diagnosis pt educated and provided positive reinforecment. Pt has visitors in and out. [facility] provided on infections precautions to all visitors and pt. Pt remains on droplet precautions. Pt pain managed with PRN Motrin and Morphine. Pt IV patent and no infiltration. Pt started on new abx tx today and infectious disease and pulmonary consulted. Pt remains on 2L oxygen via nasal cannula. Pt has call light in reach and denies needs at this time.
--- NOTE | 2018-10-10 20:26 | NUR ---
Initial shift assessment done- states having pain all over, 04/21, states nauseated, feels "horrible". temp 101.5,,, sitting at edge of bed- helped back to bed- Morphine given for pain- Zofran for nausea- and Motrin for temp, o2 at 2L/nc, denies SOB, Iv fluids of NS at 60cc/hr-
--- NOTE | 2018-10-10 23:01 | NUR ---
temp 102.1,, o2 sats 90% on 3L/nc,, pt requesting resp treatment- called- came up to give treatment,, o2 sats after treatment 92% on 3L/nc, [facility] SCHWARTZ called regarding pts status-- continue with Motrin as ordered for temp- no tylenol at this time,
[2018-10-11] VITALS (959 sets, daily range): BP systolic 106–142; BP diastolic 53–90; PULSE 66–145; TEMP 98.7–99.8; O2SAT 75–100
--- NOTE | 2018-10-11 00:40 | NUR ---
In patients room- rechecking o2 sats, 86% on 4L/nc- will put up to 5L/nc,, pt requesting pain meds- Tele called, pt in A fib,, vitals taken 155/77, 132,20 , 88 on 5L/nc-- will get 12 lead
--- NOTE | 2018-10-11 00:52 | NUR ---
[facility] called- informed of vitals and o2 sats and Afib-- will transfer to the unit at this time- EKG afib rate 131
--- NOTE | 2018-10-11 01:20 | NUR ---
Medicated with 2 mg Morphine IV for pain "all over", report given to ICU, pt transported down to ICU on bed w/o2 at 5L/nc, droplet mask on patient-
--- NOTE | 2018-10-11 02:15 | NUR ---
PT C/O NAUSEA, SOB, GENERAL ALL-OVER PAIN. PT STATES CP FEELS LIKE PRESSURE IN CENTER OF CHEST AND RADIATE TO BILAT SIDES OF NECK. PT RATES PAIN 10/10. MORPHINE ADMINISTERED TO PT PRIOR TO LEAVING MED/SURG FLOOR FOR TRANSFER TO ICU.
[2018-10-11 02:45] LABS: TROPONIN-I 0.045 ng/mL (0.000-0.035)
[2018-10-11 02:59] LABS: TSH w REFLEX 1.61 uIU/mL (0.465-4.680)
--- NOTE | 2018-10-11 04:00 | NUR ---
ORAL TEMP 99.9F. PT ADMINISTERED PO MOTRIN.
--- NOTE | 2018-10-11 07:38 | NUR ---
TRANSFER OF PT CARE; REPORT GIVEN TO FAB GRIGGS.
[2018-10-11 09:13] LABS: ARTERIAL BLD GAS O2 SATURATION 89.2 % (92-100); ARTERIAL BLD GAS TCO2 CT 20.7; ARTERIAL BLOOD GAS BASE EXCESS -4.2 (-2-2); ARTERIAL BLOOD GAS HCO3 19.7 meq/L (22-26); ARTERIAL BLOOD GAS PCO2 31.9 mmHg (35-45); ARTERIAL BLOOD GAS PO2 55.4 mmHg (80-100); ARTERIAL BLOOD GAS pH 7.41 (7.35-7.45)
[2018-10-11 09:52] LABS: BILIRUBIN,TOTAL 0.6 mg/dL (0.0-1.0); CALCIUM 8.4 mg/dL (8.4-10.2); CREATININE, serum 0.53 (0.52-1.25); POTASSIUM 3.3 mmol/L (3.4-5.0); TOTAL PROTEIN 5.8 gm/dL (6.4-8.2)
--- NOTE | 2018-10-11 10:00 | NUR ---
DISCUSSED WITH PATIENT, DAUGHTER, AND GRANDDAUGHTER SUBJECT OF ADVANCED DIRECTIVES. DR FRAZIER STATED THAT HE FEELS THOUGH PATIENT MAY NEED INTUBATED SO I DISCUSSED THE POSSIBILITY WITH PATIENT. EXPLAINED TO PATIENT AND FAMILY WHAT WOULD ALL ENTAIL WITH BEING INTUBATED AND ASKED PATIENT REGARDING IF SHE WOULD WANT CPR IF HER HEART WERE TO STOP. PT AND FAMILY BECAME VERY TEARFUL. I EXPRESSED THAT I UNDERSTAND THE TOPIC IS DIFFICULT TO TALK ABOUT BUT WITH THE PATIENT'S WORSENING PNEUMONIA AND IRREGULAR HEART RATE AND RHYTHM THAT CODE STATUS SHOULD BE DISCUSSED.
[2018-10-11 10:03] LABS: TROPONIN-I 6 HR POST INITIAL 0.027 ng/mL (0.000-0.034)
--- NOTE | 2018-10-11 11:30 | NUR ---
SW attended clinical rounding. Patient informed dr she would like to be full code and intubated if needed. NEIL will continue to follow.
--- NOTE | 2018-10-11 12:10 | NUR ---
Report received from FAB Dennis.
--- NOTE | 2018-10-11 13:50 | NUR ---
PT CONVERTED TO SINUS RHYTHM. EKG OBTAINED FOR CONFIRMATION.
--- NOTE | 2018-10-11 14:17 | NUR ---
Updated KARLA Gloria with Dr Morales, pt's potassium level and runs of PVCs. Will order KCL IVPB for pt.
--- NOTE | 2018-10-11 14:20 | NUR ---
LUCIANO Peoples with salvador Martínez. Pt HR now NSR.
--- NOTE | 2018-10-11 14:30 | NUR ---
Report given to FAB Dennis.
--- NOTE | 2018-10-11 16:11 | NUR ---
DR FLANNERY RETURNED PAGE. PROVIDER NOTIFIED OF PATIENT CONVERTING TO SINUS RHYTHM AT 1350. DR FLANNERY STATES TO DISCONTINUE CARDIZEM GTT BUT TO CONTINUE AMIO GTT.
--- NOTE | 2018-10-11 17:46 | NUR ---
PT FINALLY RESTING NOW THAT VISITORS HAVE SUBSIDED. PT'S O2 INCREASED TO 9L OM D/T DESATURATION. O2 SAT 91% ON 9LOM.
--- NOTE | 2018-10-11 18:50 | NUR ---
PT PLACED ON HIGH FLOW, HUMIDIFIED NASAL CANNULA AT 60% FIO2, 40L. O2 SAT NOW 98%. PT STATES SHE FEELS MUCH BETTER. PT SITTING UP IN BED, VISITING WITH FAMILY.
--- NOTE | 2018-10-11 23:19 | NUR ---
PT HAVING SLIGHT EXP WHEEZES IN LEFT UPPER AND LOWER LOBES. RT CALLED FOR PRN BREATHING TX.
[2018-10-12] VITALS (874 sets, daily range): BP systolic 120–147; BP diastolic 55–68; PULSE 64–78; TEMP 98.2–99.4; O2SAT 75–100
--- NOTE | 2018-10-12 03:00 | NUR ---
0130: FiO2 DECREASED TO 50% @ 40L ON HI-ABEL HEATED HUMIDIFIED NC SP02 98% 0215: PT ASLEEP, SP02 88%, PT AND SP02 PROBE REPOSITIONED; NO CHANGE, RT CONTACTED. 0222: Fi02 INCREASED BACK TO 60% AT 40L HI-ABEL, PT SP02 91% 0235: WOKE PT UP FROM SLEEP TO REPOSTION AND SIT-UP HIGHER. SP02 93% 0255: PT FULLY AWAKE SITTING UP IN BED SP02 95-98%, RT CONTACTED TO LOWER Fi02.
--- NOTE | 2018-10-12 03:44 | NUR ---
HI-ABEL HEATED HUMIDIFIED NC: TITRATED DOWN TO 50% Fi02 AT 40L BY RT. PT SP02 RANGING 92-97%. NOTE PT SP02 DECREASED WHEN SPEAKING AND SLEEPING TO 92%.
[2018-10-12 05:03] LABS: ARTERIAL BLD GAS O2 SATURATION 93.5 % (92-100); ARTERIAL BLD GAS TCO2 CT 20.2; ARTERIAL BLOOD GAS BASE EXCESS -4.8 (-2-2); ARTERIAL BLOOD GAS HCO3 19.3 meq/L (22-26); ARTERIAL BLOOD GAS PCO2 31.8 mmHg (35-45); ARTERIAL BLOOD GAS PO2 69.2 mmHg (80-100)
[2018-10-12 05:41] LABS: MEAN CELL VOLUME 100 fl (80.0-100.0); MEAN CORPUSCULAR HGB CONC 33 g/dl (33.0-37.0); MEAN PLATELET VOLUME 10.8 fl (7.4-10.4); PLATELET COUNT 180 K/mm3 (130-400); RED BLOOD COUNT 2.82 M/mm3 (4.10-5.30); REDCELL DISTRIBUTION WIDTH-CV 13.4 % (11.5-14.5)
[2018-10-12 05:47] LABS: HEMATOCRIT 28.2 % (37.0-47.0); HEMOGLOBIN 9.2 g/dl (12.5-16.0); MEAN CORPUSCULAR HEMOGLOBIN 33 pg (27.0-31.0)
[2018-10-12 05:49] LABS: BILIRUBIN,TOTAL 0.4 mg/dL (0.0-1.0); CALCIUM 8.9 mg/dL (8.4-10.2); CREATININE, serum 0.57 (0.52-1.25); MAGNESIUM 1.7 mg/dL (1.6-2.3); PHOSPHOROUS 3.3 mg/dL (2.5-4.5); TOTAL PROTEIN 5.9 gm/dL (6.4-8.2)
--- NOTE | 2018-10-12 07:10 | NUR ---
Bedside report received from FAB Downing.
--- NOTE | 2018-10-12 08:00 | NUR ---
Assessment complete, patient denies needs at this time, patient on hi-donald, humidified nasal cannula, FIO2 50%-40L, patient tolerating well. Call light within reach. AM care complete.
[2018-10-12 08:25] LABS: BAND 7 % (0-10); LYMPHOCYTE 5 % (20.0-51.0); NEUTROPHILS 84 % (42.0-75.2); PLATELET ESTIMATE NORMAL (NORMAL)
--- NOTE | 2018-10-12 08:45 | NUR ---
Sharmila, speech therapy here to work with patient.
--- NOTE | 2018-10-12 10:30 | NUR ---
Patient tearful with in room, reports pain 02/19, states "I can't take this pain, I am so tired." Discussed with patient and that we are going to limit visitors and let patient rest until at least 2 pm with no visitors. Patient and are both agreeable to this. Pain medication given as ordered and charted.
--- NOTE | 2018-10-12 12:37 | NUR ---
Patient resting with eyes closed, respirations even and non-laboared.
--- NOTE | 2018-10-12 13:50 | NUR ---
Patient awake, states "I feel so much better."
--- NOTE | 2018-10-12 18:15 | NUR ---
Patient requesting pain medication, ultram and motrin offered, patient states "those don't work" morphine given as ordered. Family at bedside.
--- NOTE | 2018-10-12 19:10 | NUR ---
Bedside report given to FAB Downing.
--- NOTE | 2018-10-12 20:00 | NUR ---
WHEN MENTIONED TO THE PATIENT "MAYBE TONIGHT WE CAN TRY PO PAIN MEDS INBETWEEN THE MORPHINE TO HELP CONTROL THE PAIN", THE PT IMMEDIATELY RAISED HER VOICE AND POINTING HER FINGER REPLYING "YOU JUST DON'T UNDERSTAND, I CAN'T TAKE IT". WHEN ASKING THE PT WHAT HAPPENS WHEN SHE TAKES IT SHE SAID, "IT DOESN'T DO ANYTHING FOR THE PAIN". ATTEMPTED TO DISCUSS WITH THE PT THAT HER PREVIOUS BAD EXPERIENCE WITH THE MEDICATION THIS ADMISSION COULD BE DUE TO THE PHENERGAN WAS ADMINISTERED AT THE SAME TIME, BUT PT REMAINED UPSET AND WOULD ONLY HAVE MORPHINE OR DILAUDID FOR PAIN, DESPITE DILAUDID NOT BEING ON HER eMAR. PT REPEATEDLY STATED "I DON'T TAKE PAIN MEDICATION" AND "I'M NOT GOING TO BE AN ADDICT". MUTIPLE ATTEMPTS WERE MADE TO CALM THE PT, EDUCATE REASON FOR OFFERING PO NON-NARCOTIC PAIN MEDS, BUT PT REFUSED TO LISTEN. PTS DAUGHTER WAS IN THE ROOM WHO HELPED RELAY THE INFOMATION TO PT. PT FINALLY ACCEPTED THE REASON FOR THE OFFER OF PO NON-NARCOTIC MEDICATIONS.
--- NOTE | 2018-10-12 23:07 | NUR ---
PT C/O NAUSEA AND CHEST PAIN. WHEN ASKED HOW CHEST PAIN DIFFERED FROM ONGOING CP, PT STATED "PRESSURE". I INFORMED PT HER ONGOING CP HAS CONSISTENTLY BEEN DESCRIBED PRESSURE AND ASKED AGAIN HOW IT IS DIFFERENT AND SHE STATED "SHARP PRESSURE". PT STATED IT RADIATES INTO BILAT SHOULDERS AND SIDES OF NECK WHICH IS HOW PT PREVIOUSLY DESCRIBED HER PAIN. PT RATED PAIN 10/10. PT THEN BEGAN TO SAY "I CAN'T BREATH", LUNGS SOUNDS UNCHANGED FROM INITIAL ASSESSMENT, NO ARRYTHMIAS, SPO2 92%. HOSPITALIST ANA NOTIFIED. RT NOTIFIED FOR EKG. LAB NOTIFIED FOR LAB DRAW. FAB CRANDALL ASSISTING WITH PT. DURING EKG: PT STATED TO FAB CRANDALL AND RT THAT SHE WANTED TO BE INTUBATED. 10/13/2018 @0003: CONTACTED HOSPITALIST ANA TO INFORM OF TROPONIN 0.059 @0010: CONTACTED DR PATTERSON OF PT IN RESP DISTRESS, NO ARRYTHMIAS, SP02 98% ON BIPAP, TROPONIN 0.059, POSSIBLY HAVING SOME ANXIETY. DR PATTERSON ORDERED PRN TYLENOL. @0018: WHEN PREPARING TO ADMINISTER PRN TYLENOL, PT WAS BRACING HERSELF IN BED WITH SIDE RAILS, WIGGLING LEGS, REPEATEDLY BRINGING LEGS TO CHEST. PT AND HER DAUGHTER STATE IT WAS THE ATIVAN THATS DOING IT. @0021: NOTIFIED HOSPITALIST OF PT CONDITION AND POSSIBLE RX TO ATIVAN. PRN BENADRYL ORDERED. @0025: ASKED PT AND HER DAUGHTER IF SHES HAD ATIVAN BEFORE, AND BOTH SAID YES, AND SAID IT RESULTED WITH THIS SAME REACTION OF RESTLESSNESS. @0032: BENADRYL ADMINISTERED. VSS. ECG A-FIB.
[2018-10-13] VITALS (808 sets, daily range): BP systolic 80–154; BP diastolic 52–80; PULSE 20–75; TEMP 97.5–98.5; O2SAT 77–100
--- NOTE | 2018-10-13 01:07 | NUR ---
IN PT ROOM. TO ADMINISTER IV MORPHINE FOR 10 CP. @0110: RT CONTACTED FOR REFITTING OF BIPAP. @0112: FOLLOWING ADMINISTRATION OF MORPHINE PT STARTED ITCHING AND BECAME VERY AGITATED, YELLING "I ITCH, GET THIS THING OFF". PT KICKING IN BED, RIPPED OFF BIPAP. @0114: CONTACTED HOSPITALIST ALEXANDER REGARDING PT STATUS AND RECOMMENDED eICU. @0117: eICU CONTACTED. PT NOW ON HEATED HUMIDIFIED HI-ABEL NC AT 65% FiO2 @ 40L. WILL CONSIDER PT TO GO BACK ON BIPAP WHEN SETTLED AND LESS AGITATION. AWAITING TO HEAR BACK FROM eICU.
--- NOTE | 2018-10-13 03:05 | NUR ---
PT C/O CHEST PAIN AND BEING UNABLE TO BREATH. WAS GIVEN PRN BREATHING TREATMENT AND SEEMED TO IMPROVE SLIGHTLY. PT HAS CLEAR BREATH SOUND AND 02 SATS IN HIGH 90'S NO IMMEDIATE DISTRESS IS NOTED AT THIS TIME. WILL CONTINUE TO MONITOR AND ASSESS PT.
--- NOTE | 2018-10-13 03:15 | NUR ---
AT 0020 PT WAS HAVING CHEST PAIN AND DISTRESS AGAIN. FELT LIKE SHE COULDN'T BREATHE WITH THE BIPAP ON. DIDN'T WANT TO WEAR BIPAP ANYMORE HOWEVER SHE REQUIRED HEATED HIGH FLOW 02. 40 LPM AT AN FI02 OF 60% ONCE PT WAS CALM SHE WAS PLACED BACK ON BIPAP MARKEL WELL AND KEEPING IT ON. PT 02 SATS HAVE BEEN IN THE MID TO HIGH 90S WILL LITTLE DISTRESS. WILL CONTINUE TO MONITOR AND ASSESS
[2018-10-13 05:00] LABS: ARTERIAL BLD GAS O2 SATURATION 92.4 % (92-100); ARTERIAL BLD GAS TCO2 CT 22.3; ARTERIAL BLOOD GAS BASE EXCESS -3.6 (-2-2); ARTERIAL BLOOD GAS HCO3 21.2 meq/L (22-26); ARTERIAL BLOOD GAS PCO2 37.4 mmHg (35-45); ARTERIAL BLOOD GAS PO2 68.2 mmHg (80-100); ARTERIAL BLOOD GAS pH 7.37 (7.35-7.45)
[2018-10-13 05:37] LABS: BASO % 0.1 % (0.0-2.0); GRAN # 14.1 (1.4-6.5); GRAN % 85.3 % (42.2-75.2); LYMPH % 6.1 % (20.0-51.0); MEAN CELL VOLUME 102 fl (80.0-100.0); MEAN CORPUSCULAR HGB CONC 32 g/dl (33.0-37.0); MEAN PLATELET VOLUME 10.4 fl (7.4-10.4); MONO # 1.3 (0.1-0.6); MONO % 7.8 % (1.7-9.3); PLATELET COUNT 233 K/mm3 (130-400); RED BLOOD COUNT 2.84 M/mm3 (4.10-5.30); REDCELL DISTRIBUTION WIDTH-CV 13.8 % (11.5-14.5)
[2018-10-13 05:39] LABS: HEMATOCRIT 28.9 % (37.0-47.0); HEMOGLOBIN 9.3 g/dl (12.5-16.0); MEAN CORPUSCULAR HEMOGLOBIN 33 pg (27.0-31.0)
[2018-10-13 05:48] LABS: BILIRUBIN,TOTAL 0.3 mg/dL (0.0-1.0); CALCIUM 9.1 mg/dL (8.4-10.2); CREATININE, serum 0.54 (0.52-1.25); POTASSIUM 3.9 mmol/L (3.4-5.0)
[2018-10-13 06:01] LABS: TROPONIN-I 3 HR POST INITIAL 0.051 ng/mL (0.000-0.034)
--- NOTE | 2018-10-13 07:30 | NUR ---
Report received from Salina SANON and care resumed.
--- NOTE | 2018-10-13 08:05 | NUR ---
Dr Ireland in to see pt. Will plan to intubate once pt's family arrives and she is able to speak with them. RT notified. Pt does remain short of breath, labored on bipap. Denies any pain. Will continue to follow.
--- NOTE | 2018-10-13 10:15 | NUR ---
Anesthesia and RT at bedside. Pt verbally consented for intubation. Time out performed and anesthesia intubated pt at 1000 with 7.0 et tube. OG also placed at time as well as restraints as ordered. Chest x-ray obtained to confirm placement. Will continue to follow.
--- NOTE | 2018-10-13 10:50 | NUR ---
Dr Morales in to see pt at this time.
--- NOTE | 2018-10-13 10:59 | NUR ---
NEIL attended clinical rounding. Patient was intubated this am. Daughter at bedside. NEIL will continue to follow.
--- NOTE | 2018-10-13 13:04 | NUR ---
Received call from cardiology regarding update in pt condition. Will continue IV amio at this time per Dr Navarro's request.
[2018-10-13 13:42] LABS: ARTERIAL BLD GAS O2 SATURATION 98.8 % (92-100); ARTERIAL BLD GAS TCO2 CT 25.5; ARTERIAL BLOOD GAS BASE EXCESS -2.2 (-2-2); ARTERIAL BLOOD GAS HCO3 24.1 meq/L (22-26); ARTERIAL BLOOD GAS PCO2 47.9 mmHg (35-45); ARTERIAL BLOOD GAS pH 7.32 (7.35-7.45)
[2018-10-13 13:43] LABS: ARTERIAL BLOOD GAS PO2 273.3 mmHg (80-100)
--- NOTE | 2018-10-13 17:13 | NUR ---
No sedation vacation at this time as pt is awake and restless and actually needed sedation increased at this time.
--- NOTE | 2018-10-13 19:24 | NUR ---
Report given to Elsa SANON and care transfered.
[2018-10-13 19:46] LABS: ARTERIAL BLD GAS O2 SATURATION 96.5 % (92-100); ARTERIAL BLD GAS TCO2 CT 24.7; ARTERIAL BLOOD GAS HCO3 23.4 meq/L (22-26); ARTERIAL BLOOD GAS PCO2 42.6 mmHg (35-45); ARTERIAL BLOOD GAS PO2 95.4 mmHg (80-100); ARTERIAL BLOOD GAS pH 7.36 (7.35-7.45)
[2018-10-14] VITALS (704 sets, daily range): BP systolic 102–152; BP diastolic 55–81; PULSE 48–88; TEMP 97–98.2; O2SAT 90–100
--- NOTE | 2018-10-14 05:24 | NUR ---
PT HAS NOT BEEN INTUBATED FOR 24HRS YET. SMARTCARE NOT COMPLETED.
[2018-10-14 05:30] LABS: ARTERIAL BLD GAS O2 SATURATION 93.9 % (92-100); ARTERIAL BLD GAS TCO2 CT 26.6; ARTERIAL BLOOD GAS BASE EXCESS -0.1 (-2-2); ARTERIAL BLOOD GAS HCO3 25.3 meq/L (22-26); ARTERIAL BLOOD GAS PCO2 44.1 mmHg (35-45); ARTERIAL BLOOD GAS PO2 74.1 mmHg (80-100); ARTERIAL BLOOD GAS pH 7.38 (7.35-7.45)
[2018-10-14 05:45] LABS: MEAN CELL VOLUME 105 fl (80.0-100.0); MEAN CORPUSCULAR HGB CONC 32 g/dl (33.0-37.0); MEAN PLATELET VOLUME 10.3 fl (7.4-10.4); PLATELET COUNT 267 K/mm3 (130-400); RED BLOOD COUNT 2.88 M/mm3 (4.10-5.30); REDCELL DISTRIBUTION WIDTH-CV 13.9 % (11.5-14.5)
[2018-10-14 05:55] LABS: HEMATOCRIT 30.1 % (37.0-47.0); HEMOGLOBIN 9.5 g/dl (12.5-16.0); MEAN CORPUSCULAR HEMOGLOBIN 33 pg (27.0-31.0)
[2018-10-14 05:59] LABS: CALCIUM 8.8 mg/dL (8.4-10.2); CREATININE, serum 0.55 (0.52-1.25); MAGNESIUM 2.4 mg/dL (1.6-2.3); PHOSPHOROUS 3.5 mg/dL (2.5-4.5); POTASSIUM 4.1 mmol/L (3.4-5.0)
--- NOTE | 2018-10-14 07:00 | NUR ---
Report received at bedside by FAB Hunter. Plan of care discussed. Lines, tubes, and drips reviewed. Patient is wide awake and writing on the white board messages to her family who are at the bedside. Plan of care discussed.
[2018-10-14 08:15] LABS: BAND 3 % (0-10); LYMPHOCYTE 6 % (20.0-51.0); NEUTROPHILS 87 % (42.0-75.2); NUCLEATED RED BLOOD CELL 1 (0-6); PLATELET ESTIMATE NORMAL (NORMAL)
--- NOTE | 2018-10-14 08:30 | NUR ---
Patient reports some chest pain and back pain while assessment is completed by this RN. Fentanyl increased at this time. Will communicate this to Dr. Morales when he rounds on the unit.
[2018-10-14 11:48] LABS: C-REACTIVE PROTEIN 2.2 mg/dL (0.0-0.9)
[2018-10-14 12:06] LABS: TROPONIN-I 0.254 ng/mL (0.000-0.035)
--- NOTE | 2018-10-14 14:52 | NUR ---
Call to Mikala RN with Dr. Alfonso to commmunicate continued chest pain, ST depression in lead 2, and elevation in troponin added on to AM labs by Dr. Morales. Dr. Alfonso states that since she is having more chest pain and elevated troponin he wants to do a heart cath on her. I state that I will go talk to the daughter and ask her to have the return to the hospital.
--- NOTE | 2018-10-14 15:00 | NUR ---
Daughter is updated and told that Dr. Alfonso will be here soon to talk to her and the . She verbalizes understanding.
[2018-10-14 15:40] LABS: MEAN CELL VOLUME 104 fl (80.0-100.0); MEAN CORPUSCULAR HGB CONC 32 g/dl (33.0-37.0); MEAN PLATELET VOLUME 10.3 fl (7.4-10.4); PLATELET COUNT 278 K/mm3 (130-400); RED BLOOD COUNT 2.77 M/mm3 (4.10-5.30); REDCELL DISTRIBUTION WIDTH-CV 13.8 % (11.5-14.5)
[2018-10-14 15:45] LABS: PROTHROMBIN TIME 11.6 SECONDS (9.7-12.8)
[2018-10-14 15:49] LABS: HEMATOCRIT 28.8 % (37.0-47.0); HEMOGLOBIN 9.3 g/dl (12.5-16.0); MEAN CORPUSCULAR HEMOGLOBIN 34 pg (27.0-31.0)
[2018-10-14 15:51] LABS: CALCIUM 8.4 mg/dL (8.4-10.2); CREATININE, serum 0.54 (0.52-1.25); POTASSIUM 4.1 mmol/L (3.4-5.0)
--- NOTE | 2018-10-14 16:03 | NUR ---
Patient goes back to laboratory inspector at this time.
--- NOTE | 2018-10-14 17:00 | NUR ---
Patient returns from laborer gold leaf. She is deeply sedated by Derek FRAZIER, who is at bedside. VS WNL, right groin site assessed. dressing is clean and dry and no s/s hematoma or bleeding. Pulses palpable in feet bilaterally. TIP SCOURER places patient back on vent and bilateral wrist restraints secured. Will continue to monitor.
--- NOTE | 2018-10-14 18:00 | NUR ---
Patient wakes more at this time. She is educated on the need to lie flat and keep right leg straight. She nods her head in understanding. Will continue to monitor.
--- NOTE | 2018-10-14 19:00 | NUR ---
Bedside report given to FAB Hermosillo. Patient's plan of care discussed. Lines, tubes, and iv gtts reviewed at bedside. Groin site assessed while both RNs in room. Care handed over to FAB Hermosillo at this time.
--- NOTE | 2018-10-14 19:15 | NUR ---
Bedside report received from FAB Mccarthy. All lines and medications reviewed. Cath site assessed. Transfer of care at this time.
--- NOTE | 2018-10-14 19:39 | NUR ---
PT IS LAYING FLAT AT THIS TIME DUE TO HEART CATH UNTIL 9PM. NO DISTRESS NOTED.
--- NOTE | 2018-10-14 20:00 | NUR ---
Patient resting flat in bed on light sedation at this time. Assessment complete. Patient follows commands and awakens to name. Shakes her head no when asked if in any pain. Patient is bradycardic but has good regular heart sounds. Lungs sound coarse in all tenorio with diminished bases. Bowel sounds are hypoactive and audible. Patient may come off of flat time in an hour. Right groin site is soft and nontender, dressing remains clean and dry. No further needs at this time. Will continue to monitor. Call light within reach.
[2018-10-15] VITALS (768 sets, daily range): BP systolic 113–154; BP diastolic 56–85; PULSE 47–82; TEMP 97.4–98.7; O2SAT 81–100
--- NOTE | 2018-10-15 00:44 | NUR ---
Assessment complete. Patient appears to be resting comfortably on the vent. Awakens to name. Lung sounds are clear and diminished in the bases. Bowel sounds are normoactive. Patient continues to have good urine output. Vitals remain stable. No further needs at this time. Will continue to monitor. Call light within reach.
--- NOTE | 2018-10-15 04:00 | NUR ---
Patient resting at this time. Easily awakens to name or noise in the room. Assessment complete. Patient's dressing remains clean and dry with no hematoma. Pedal pulses remain +2. Edema in the legs remains the same. No significant changes in assessment. Vitals remain stable. No further needs at this time. Will continue to monitor. Call light within reach.
--- NOTE | 2018-10-15 05:00 | NUR ---
Propofol decreased at this time for smartcare.
[2018-10-15 05:17] LABS: HEMATOCRIT 32.5 % (37.0-47.0); HEMOGLOBIN 10.1 g/dl (12.5-16.0); MEAN CELL VOLUME 105 fl (80.0-100.0); MEAN CORPUSCULAR HEMOGLOBIN 33 pg (27.0-31.0); MEAN CORPUSCULAR HGB CONC 31 g/dl (33.0-37.0); MEAN PLATELET VOLUME 10.4 fl (7.4-10.4); PLATELET COUNT 320 K/mm3 (130-400); RED BLOOD COUNT 3.11 M/mm3 (4.10-5.30); REDCELL DISTRIBUTION WIDTH-CV 13.8 % (11.5-14.5)
[2018-10-15 05:29] LABS: BILIRUBIN,TOTAL 0.2 mg/dL (0.0-1.0); CALCIUM 8.4 mg/dL (8.4-10.2); CREATININE, serum 0.59 (0.52-1.25); MAGNESIUM 2.4 mg/dL (1.6-2.3); PHOSPHOROUS 4.1 mg/dL (2.5-4.5); POTASSIUM 4.4 mmol/L (3.4-5.0)
[2018-10-15 05:39] LABS: ARTERIAL BLD GAS O2 SATURATION 97.5 % (92-100); ARTERIAL BLD GAS TCO2 CT 24.9; ARTERIAL BLOOD GAS BASE EXCESS -1.1 (-2-2); ARTERIAL BLOOD GAS HCO3 23.7 meq/L (22-26); ARTERIAL BLOOD GAS PCO2 39.9 mmHg (35-45); ARTERIAL BLOOD GAS PO2 116.2 mmHg (80-100); ARTERIAL BLOOD GAS pH 7.39 (7.35-7.45)
--- NOTE | 2018-10-15 05:41 | NUR ---
PT PLACED IN SMARTCARE AT THIS TIME. PT TOLERATING WELL. PRESSURE SUPPORT ALREADY DECREASING. CURRENTLY AT 11. WILL CONTINUE TO MONITOR.
[2018-10-15 05:42] LABS: TROPONIN-I 0.133 ng/mL (0.000-0.035)
[2018-10-15 05:52] LABS: BAND 6 % (0-10); LYMPHOCYTE 6 % (20.0-51.0); METAMYELOCYTE 1 % (0-0); NEUTROPHILS 84 % (42.0-75.2); PLATELET ESTIMATE NORMAL (NORMAL)
[2018-10-15 05:53] LABS: HYPOCHROMIA 2+
--- NOTE | 2018-10-15 06:00 | NUR ---
Patient's morning weight checked at this time. 80.2kg is updated weight. Changed dosing in the IV pump, decreased to 4.8ml of propofol.
--- NOTE | 2018-10-15 07:10 | NUR ---
Bedside report given to FAB Mccarthy. All lines and medications reviewed. Transfer of care at this time.
--- NOTE | 2018-10-15 07:15 | NUR ---
BEDSIDE REPORT RECEIVED FROM FAB ALCOCER. PLAN OF CARE DISCUSSED. IV LINES, DRIPS AND TUBES REVIEWED. CARE ASSUMED AT THIS TIME.
--- NOTE | 2018-10-15 08:56 | NUR ---
CONFIRM WITH REAL ESTATE INSTRUCTOR THAT PATIENT CAN COME OUT OF DROPLET PRECAUTIONS. PATIENT IS ON LAST DAY OF TAMIFLU AND REMAINS AFEBRILE.
--- NOTE | 2018-10-15 09:30 | NUR ---
Patient continues to be in smart care at this time. She is tolerating well. Pressure Support is down to 0. Dr. Ireland states to place patient back to CMV mode then do another round of smart care at 1200. Patient and family updated on plan of care.
--- NOTE | 2018-10-15 10:58 | NUR ---
Plan to extubate patient tomorrow. PT is recommending IPR and will follow after patient is extubated. SW to follow.
--- NOTE | 2018-10-15 12:00 | NUR ---
Smart care started a 2nd time today. Patient remains on same amount of sedation and tolerates smart care with no issue. Plan to do smart care this afternoon from 1200 to 1600, then place patient back in CMV mode. Family aware of the plan.
--- NOTE | 2018-10-15 16:00 | NUR ---
SMART CARE ENDS AT THIS TIME. PATIENT REQUESTS INCREASE IN HER SEDATION ABOUT 1520. SHE IS RESTING COMFORTABLY AT THIS TIME WILL CONTINUE TO MONITOR.
--- NOTE | 2018-10-15 17:20 | NUR ---
RECEIVED REPORT FROM FAB ROGERS. PATIENT WAS QUIETLY RESTING IN BED. MEDICATIONS, LINES, AND TUBES VARIFIED. WILL CONTINUE TO MONITOR PATIENT.
--- NOTE | 2018-10-15 19:29 | NUR ---
Bedside report given to FAB Queen. Vent settings, lines, tubes, and iv gtts reviewed. Plan of care discussed. Care turned over at this time.
--- NOTE | 2018-10-15 22:00 | NUR ---
PATIENT WAS COMPLAINING OF PAIN. INCREASED MEDICATION ACCORDING TO PROVIDERS ORDERS. WILL COTINUE TO MONITOR PATIENT.
[2018-10-15 23:04] LABS: FOLATE (FOLIC ACID) 4.3 ng/mL (7.0-31.4)
[2018-10-16] VITALS (694 sets, daily range): BP systolic 122–147; BP diastolic 57–70; PULSE 48–60; TEMP 97–98.5; O2SAT 61–100
--- NOTE | 2018-10-16 01:49 | NUR ---
PATIENT IS CURRENTLY IN BED ASLEEP. PATIENT SEEMS TO BE RESTING PEACEFULLY AT THIS TIME. WILL CONTINUE TO MONITOR PATIENT.
--- NOTE | 2018-10-16 04:14 | NUR ---
ASSESSMENT COMPLETED AT THIS TIME. PATIENT IS RESTING COMFORTABLY IN BED. DENIES PAIN AT THIS TIME. WILL CONTINUE TO MONITOR PATIENT.
[2018-10-16 04:52] LABS: ARTERIAL BLD GAS O2 SATURATION 97.8 % (92-100); ARTERIAL BLOOD GAS BASE EXCESS 1.2 (-2-2); ARTERIAL BLOOD GAS HCO3 26.6 meq/L (22-26); ARTERIAL BLOOD GAS PCO2 45.6 mmHg (35-45); ARTERIAL BLOOD GAS PO2 126.6 mmHg (80-100); ARTERIAL BLOOD GAS pH 7.38 (7.35-7.45)
[2018-10-16 05:04] LABS: MEAN CELL VOLUME 105 fl (80.0-100.0); MEAN CORPUSCULAR HGB CONC 31 g/dl (33.0-37.0); MEAN PLATELET VOLUME 10.1 fl (7.4-10.4); PLATELET COUNT 346 K/mm3 (130-400); RED BLOOD COUNT 2.97 M/mm3 (4.10-5.30); REDCELL DISTRIBUTION WIDTH-CV 13.8 % (11.5-14.5)
--- NOTE | 2018-10-16 05:04 | NUR ---
PLACED PT ON SMARTCARE TRIAL AT THIS TIME. BEGAN WITH A PRESSURE SUPPORT OF 10. PT TOLERATING WELL AND HAS ALREADY WEANED TO 6. WILL CONTINUE TO MONITOR.
[2018-10-16 05:05] LABS: HEMATOCRIT 31.2 % (37.0-47.0); HEMOGLOBIN 9.6 g/dl (12.5-16.0); MEAN CORPUSCULAR HEMOGLOBIN 32 pg (27.0-31.0)
--- NOTE | 2018-10-16 05:06 | NUR ---
PATIENT IS ALERT, AWAKE, AND CALM. DO NOT NEED TO TURN DOWN SEDATION AT THIS TIME.
[2018-10-16 05:17] LABS: CALCIUM 8.5 mg/dL (8.4-10.2); CREATININE, serum 0.6 (0.52-1.25); MAGNESIUM 2.6 mg/dL (1.6-2.3); PHOSPHOROUS 3.1 mg/dL (2.5-4.5)
--- NOTE | 2018-10-16 05:27 | NUR ---
PT'S PRESSURE SUPPORT IS 0 AT THIS TIME. PT TOLERATING SMARTCARE TRIAL WELL. WILL CONTINUE TO MONITOR.
[2018-10-16 06:22] LABS: BAND 17 % (0-10); HYPOCHROMIA 2+; LYMPHOCYTE 9 % (20.0-51.0); NEUTROPHILS 68 % (42.0-75.2); PLATELET ESTIMATE NORMAL (NORMAL)
--- NOTE | 2018-10-16 07:18 | NUR ---
GAVE REPORT TO FAB ROGERS. PATIENT WAS AWAKE AND RESTING IN BED. PATIENT WAS REPOSITIONED DURING SHIFT REPORT WELL.
--- NOTE | 2018-10-16 07:20 | NUR ---
Bedside report received from FAB Queen. Patient currently on smartEPIS, vent says "consider separation". All sedation is reviewed. Tube feeds placed on hold. will continue to monitor.
--- NOTE | 2018-10-16 10:20 | NUR ---
Dr. Ireland here and gives order to extubate.
--- NOTE | 2018-10-16 10:30 | NUR ---
EXTUBATED PATIENT PATIENT DR FRAZIER REQUEST,PLACED PATIENT ON 5L OXYMASK SATS 96% LUNGS SOUNDS CLEAR NO SIGNS OF STRIDOR. PATIENT SEEMS TO BE TOLERATING WELL AT THIS TIME. DR FRAZIER NOTIFIED.
--- NOTE | 2018-10-16 10:45 | NUR ---
Patient extubated at 1030. She is immediately placed on 5L oxymask and tolerates it very well. Patient is educated on how to properly use yaunker for secretions. Will continue to monitor.
--- NOTE | 2018-10-16 13:00 | NUR ---
DR. FRAZIER GIVES ORDER TO ADVANCE DIET TOLERATED.
--- NOTE | 2018-10-16 14:00 | NUR ---
Patient continues to do well. She remains on 2L O2 via nasal cannula. She attempted to get up with this RN and Physical Therapist around 12pm. Patient became dizzy and lightheaded when standing at side of bed. Blood Pressure taken at this time. SBP 160S. She requests to return to bed and do PT exercises from the bed. Dizziness resolves within 5 minutes after returning to bed. Will continue to monitor.
--- NOTE | 2018-10-16 19:13 | NUR ---
Bedside report given to FAB Harmon. Patient resting in bed and repositioned with warm blankets on her back to help with her back pain. Plan of care reviewed. Care turned over at this time
--- NOTE | 2018-10-16 19:45 | NUR ---
Assessment completed and charted at this time, please see documentation for details. Patient resting in bed, family at bedside. Patient states some discomfort, common for patient. No issues to report at this time, will continue to monitor and assess.
--- NOTE | 2018-10-16 23:25 | NUR ---
Patient stated tramadol gives her severe headache and ill in the stomach. D/C medication per LUCIANO Abbott.
[2018-10-17] VITALS (180 sets, daily range): BP systolic 72–162; BP diastolic 38–75; PULSE 61–75; TEMP 96.9–98.9; O2SAT 74–100
[2018-10-17 05:22] LABS: MEAN CELL VOLUME 104 fl (80.0-100.0); MEAN CORPUSCULAR HGB CONC 31 g/dl (33.0-37.0); MEAN PLATELET VOLUME 10.3 fl (7.4-10.4); PLATELET COUNT 343 K/mm3 (130-400); REDCELL DISTRIBUTION WIDTH-CV 13.5 % (11.5-14.5)
[2018-10-17 05:25] LABS: HEMATOCRIT 28.2 % (37.0-47.0); HEMOGLOBIN 8.7 g/dl (12.5-16.0); MEAN CORPUSCULAR HEMOGLOBIN 32 pg (27.0-31.0)
[2018-10-17 05:50] LABS: CALCIUM 8.4 mg/dL (8.4-10.2); CREATININE, serum 0.51 (0.52-1.25); MAGNESIUM 2.5 mg/dL (1.6-2.3); POTASSIUM 5.1 mmol/L (3.4-5.0)
--- NOTE | 2018-10-17 07:15 | NUR ---
Report received from Faustino SANON and care resumed.
--- NOTE | 2018-10-17 10:30 | NUR ---
Dr Ireland in to see pt at this time.
[2018-10-17 10:56] LABS: LYMPHOCYTE 16 % (20.0-51.0); NEUTROPHILS 82 % (42.0-75.2); PLATELET ESTIMATE NORMAL (NORMAL)
--- NOTE | 2018-10-17 11:17 | NUR ---
Dr Ramirez in to see pt at this time.
--- NOTE | 2018-10-17 13:41 | NUR ---
Dr Ireland back in to see pt. Pt says she remains in pain and nauseated. BP also dropping. Dr Ireland ordered morphine SUPERVISOR FITTING. Will continue to try bipap as tolerated as long as pt not nauseated. IV fluid bolus also being given for low BP. Will continue to follow.
--- NOTE | 2018-10-17 14:17 | NUR ---
Pt to CT scan by bed then returned back to room and placed back on monitor. Lab here at this time for H/H. Will continue to follow.
--- NOTE | 2018-10-17 14:30 | NUR ---
Dr Joy called and notified of consult.
[2018-10-17 14:31] LABS: BASO % 0.1 % (0.0-2.0); EOS % 0.1 % (0-4.0); GRAN # 14.4 (1.4-6.5); GRAN % 77.5 % (42.2-75.2); LYMPH # 1.5 (1.2-3.4); LYMPH % 7.8 % (20.0-51.0); MEAN CELL VOLUME 105 fl (80.0-100.0); MEAN CORPUSCULAR HGB CONC 31 g/dl (33.0-37.0); MEAN PLATELET VOLUME 10.5 fl (7.4-10.4); MONO # 1.8 (0.1-0.6); MONO % 9.6 % (1.7-9.3); PLATELET COUNT 359 K/mm3 (130-400); RED BLOOD COUNT 2.09 M/mm3 (4.10-5.30); REDCELL DISTRIBUTION WIDTH-CV 13.6 % (11.5-14.5)
[2018-10-17 14:33] LABS: ARTERIAL BLD GAS O2 SATURATION 90.2 % (92-100); ARTERIAL BLOOD GAS BASE EXCESS 3.7 (-2-2); ARTERIAL BLOOD GAS HCO3 27.8 meq/L (22-26); ARTERIAL BLOOD GAS PCO2 39.3 mmHg (35-45); ARTERIAL BLOOD GAS PO2 58.7 mmHg (80-100); ARTERIAL BLOOD GAS pH 7.47 (7.35-7.45)
[2018-10-17 14:37] LABS: HEMATOCRIT 21.9 % (37.0-47.0); HEMOGLOBIN 6.8 g/dl (12.5-16.0); MEAN CORPUSCULAR HEMOGLOBIN 33 pg (27.0-31.0)
[2018-10-17 14:52] LABS: INR 1.2 (0.8-3.0); PROTHROMBIN TIME 13.4 SECONDS (9.7-12.8)
[2018-10-17 14:54] LABS: PARTIAL THROMBOPLASTIN TIME 30.8 SECONDS (26.0-37.0)
--- NOTE | 2018-10-17 14:55 | NUR ---
O neg unit of PRBC delivered to room and started at this time per FAB Gagnon. Unit # ending in [id number]. See flowsheet for vital signs.
--- NOTE | 2018-10-17 15:05 | NUR ---
Dr Ireland, anesthesia, RT, and Dr Joy all at bedside at this time.
--- NOTE | 2018-10-17 15:10 | NUR ---
Time out performed and anesthesia performing intubation at this time after consent was obtained.
[2018-10-17 15:14] LABS: BAND 2 % (0-10); LYMPHOCYTE 13 % (20.0-51.0); NEUTROPHILS 76 % (42.0-75.2); NUCLEATED RED BLOOD CELL 1 (0-6)
[2018-10-17 15:15] LABS: PLATELET ESTIMATE NORMAL (NORMAL)
--- NOTE | 2018-10-17 15:15 | NUR ---
ASSISTED WITH INTUBATION 7.0 ETT PLACED AT 21 AT THE TEETH. EQUAL BREATH SOUNDS AND POSTIVE COLOR CHANGE FOR CO2. NO COMPLICATIONS
[2018-10-17 15:16] LABS: HYPOCHROMIA 2+
[2018-10-17 15:18] LABS: POLYCHROMASIA 1+
--- NOTE | 2018-10-17 15:23 | NUR ---
FFP unit [id number] received from lab and started at this time. See flowsheet for vitals.
--- NOTE | 2018-10-17 15:30 | NUR ---
Unit # [id number] ended at this time. See flowsheet for vital signs.
--- NOTE | 2018-10-17 15:34 | NUR ---
O neg unit [id number] received from blood bank and started at this time.
--- NOTE | 2018-10-17 15:40 | NUR ---
FFP unit [id number] complete at this time. See flowsheet for vitals.
--- NOTE | 2018-10-17 15:40 | NUR ---
Dr Joy placing central line at this time after consent was obtained and bedside time out performed.
--- NOTE | 2018-10-17 15:45 | NUR ---
FFP [id number] received from blood bank and started at this time. See flowsheet for vitals.
--- NOTE | 2018-10-17 16:00 | NUR ---
Verbal orders from Dr Ireland to start sedation as pt is going to wake up for anesthetic used by anesthesia for intubation and is a know history of being very restless, agitated and required higher then normal amounts of sedation.
--- NOTE | 2018-10-17 16:15 | NUR ---
Anesthesia at bedside to place central line after consent was obtained and time out performed.
--- NOTE | 2018-10-17 16:20 | NUR ---
O neg unit [id number] ended at this time. See flowsheet for vitals.
--- NOTE | 2018-10-17 16:31 | NUR ---
FFP unit [id number] ended at this time. See flowsheet for vitals.
--- NOTE | 2018-10-17 17:10 | NUR ---
Dr Ireland back at bedside for update. New orders received. Will continue to monitor.
[2018-10-17 17:12] LABS: ARTERIAL BLD GAS O2 SATURATION 97.8 % (92-100); ARTERIAL BLD GAS TCO2 CT 26.1; ARTERIAL BLOOD GAS BASE EXCESS 1.3 (-2-2); ARTERIAL BLOOD GAS PCO2 35.6 mmHg (35-45); ARTERIAL BLOOD GAS pH 7.46 (7.35-7.45)
[2018-10-17 17:16] LABS: ARTERIAL BLOOD GAS PO2 130.3 mmHg (80-100)
[2018-10-17 17:30] LABS: HEMATOCRIT 23.8 % (37.0-47.0); HEMOGLOBIN 7.8 g/dl (12.5-16.0)
--- NOTE | 2018-10-17 17:33 | NUR ---
Pt not stable at this time, verbal order per Dr Ireland for no sedation vacation. Pt had only been intubated approx 2 hours and still adjusting sedation. Pt is responsive at this time in regards to neuro status.
--- NOTE | 2018-10-17 17:47 | NUR ---
Called Dr Joy regarding plan of care as pt's BP remains low. Stated should probably consider transfer for IR at this time and if not then pt would need to go to OR. Will call and update as able.
--- NOTE | 2018-10-17 18:45 | NUR ---
Dr Ireland and Dr Ennis at bedside.
--- NOTE | 2018-10-17 18:52 | NUR ---
Spoke with Hyacinth at [facility] transfer center. Dr Terry has accepted pt and will transfer JAMES by air.
--- NOTE | 2018-10-17 19:04 | NUR ---
Report given to Faustino SANON and care transfered.
--- NOTE | 2018-10-17 19:35 | NUR ---
Patient assessment completed and charted at this time, please see documentation for details. Patient in bed, tolerating ventilator, family at bedside with Dr. Ireland discussing patient condition.
--- NOTE | 2018-10-17 19:37 | NUR ---
Report called to Suzan SANON at [facility]. Will have Faustino call her for ETA once pt leaves.
--- NOTE | 2018-10-17 20:00 | NUR ---
[facility] arrived at this time for patient transportation, report being given at this time.
--- NOTE | 2018-10-17 21:20 | NUR ---
Patient left ICU accompanied by [employer] flight crew. Patient currently stable on the ventilator and pressers. Sending 2 units of PRBC with crew for transfusion, along with mixed bag of versed. Passing off care of patient at this time.
== END 2018-10-17 21:20 | disposition short-term general hospital (02) | DRG 208 ==
LOC: COL.ER 11:50 → MEDICAL 15:02 → ICU 15:02 → MEDICAL 10-10 23:23 → ICU 10-11 01:49 → MEDICAL 10-11 01:49 → ICU 10-11 01:49
PROVIDERS: Emergency Medicine; Internal Medicine; Internal Medicine Pulmonary Disease; Nurse Practitioner; Nurse Practitioner Family; Physician Assistant; ADMIT Hospitalist
PROC: 5A1945Z Respiratory Ventilation, 24-96 Consecutive Hours (ICD-10-PCS; 2018-10-13)
PROC: B2111ZZ Fluoroscopy of Multiple Coronary Arteries using Low Osmolar Contrast (ICD-10-PCS; principal; 2018-10-14)
DX: J09.X1 Influenza due to identified novel influenza A virus with pneumonia (principal); J96.01 Acute respiratory failure with hypoxia; I21.A1 Myocardial infarction type 2; I74.5 Embolism and thrombosis of iliac artery; I25.10 Atherosclerotic heart disease of native coronary artery without angina pectoris; Z95.1 Presence of aortocoronary bypass graft; J18.1 Lobar pneumonia, unspecified organism; I10 Essential (primary) hypertension; F41.8 Other specified anxiety disorders; Z86.718 Personal history of other venous thrombosis and embolism; Z79.01 Long term (current) use of anticoagulants; Z87.891 Personal history of nicotine dependence; E87.6 Hypokalemia; E83.42 Hypomagnesemia; I73.9 Peripheral vascular disease, unspecified; I48.91 Unspecified atrial fibrillation; I95.9 Hypotension, unspecified; R58 Hemorrhage, not elsewhere classified
CPT/HCPCS: OP; 87522; 99233-AI; 99239; A4216; A4314; C1751; G0378; G8978-GP; G8979-GP; J0282; J0330; J0456; J0610; J1200; J1610; J1644; J1650; J1815; J1940; J2060; J2185; J2250; J2270; J2405; J2543; J2550; J2704; J2720; J2920; J3010; J3370; J3475; J3480; J7030; J7040; J7050; J7060; J7070; J7120; P9016; Q9967

== ENCOUNTER 2018-12-08 20:25 | Emergency (ER) | payer MEDICARE, MEDICAID ==
[~2018-12-08] VITALS: Ht 177.8 cm; Wt 72.7 kg
[~2018-12-08 20:25] MED LIST changes: +AFRIN 15 ML15 ML NS; +AMOXICILLIN 8751 TAB PO; +ATARAX 25MG25 MG/TAB PO; +BENTYL 10MG10 MG/CAP PO; +CORDARONE200 MG/TAB PO; +COUMADIN 5MG5 MG/TAB PO; +DITROPAN 5MG TAB5 MG PO; +DULCOLAX S10 MG/SUPP RC; +LAMICTAL 25MG T25 MG PO; +LEVSIN 0.10.125 MG/T PO; +LOVENOX 8080 MG/0.8 SQ; +MAGIC MOUTH PO; +MIRALAX PA17 GM/Dose PO; +OCEAN NASAL SPR45 ML NS; +PHENERGAN 25 TA25 MG PO; +PRINIVIL2.5 MG PO; +ROXICODONE 55 MG/TAB PO; +TYLENOL 325MG325 MG PO; +VALIUM 2MG T2 MG/TAB PO
[2018-12-08 20:35] VITALS: TEMP 98
[2018-12-08 21:18] LABS: INR 1.8 (0.8-3.0); PROTHROMBIN TIME 21.6 SECONDS (9.7-12.8)
[2018-12-08 21:23] LABS: BASO # 0.1 (0.0-0.2); BASO % 0.9 % (0.0-2.0); EOS # 0.4 (0.0-0.7); EOS % 4.9 % (0-4.0); GRAN # 3.1 (1.4-6.5); GRAN % 41.6 % (42.2-75.2); HEMATOCRIT 37.5 % (37.0-47.0); HEMOGLOBIN 12.1 g/dl (12.5-16.0); LYMPH # 3.3 (1.2-3.4); LYMPH % 43.4 % (20.0-51.0); MEAN CELL VOLUME 94 fl (80.0-100.0); MEAN CORPUSCULAR HEMOGLOBIN 30 pg (27.0-31.0); MEAN CORPUSCULAR HGB CONC 32 g/dl (33.0-37.0); MEAN PLATELET VOLUME 9.5 fl (7.4-10.4); MONO # 0.7 (0.1-0.6); MONO % 9.1 % (1.7-9.3); PLATELET COUNT 299 K/mm3 (130-400); RED BLOOD COUNT 4.01 M/mm3 (4.10-5.30); REDCELL DISTRIBUTION WIDTH-CV 15.9 % (11.5-14.5)
[2018-12-08 21:38] LABS: ALANINE AMINOTRANSFERASE 9 U/L (9-52); ALBUMIN 3.6 gm/dL (3.5-5.0); ALKALINE PHOSPHATASE 113 U/L (50-136); ANION GAP 11 mmol/L (7-16); AST,SGOT 25 U/L (15-37); BILIRUBIN,TOTAL 0.3 mg/dL (0.0-1.0); BLOOD UREA NITROGEN 23 mg/dL (7-17); CALCIUM 9.2 mg/dL (8.4-10.2); CARBON DIOXIDE 20 mmol/L (22-30); CHLORIDE 109 mmol/L (98-107); CREATININE, serum 0.94 (0.52-1.25); GLUCOSE 116 mg/dL (74-106); LIPASE 116 U/L (23-300); POTASSIUM 4.2 mmol/L (3.4-5.0); SODIUM 140 mmol/L (137-145); TOTAL PROTEIN 6.9 gm/dL (6.4-8.2)
[2018-12-08 21:43] LABS: C-REACTIVE PROTEIN < 0.5 mg/dL (0.0-0.9)
[2018-12-08 22:16] LABS: TROPONIN-I < 0.012 ng/mL (0.000-0.035)
[2018-12-08 23:27] VITALS: BP 135/71; PULSE 64
== END 2018-12-08 23:27 | disposition left against medical advice (07) ==
LOC: COL.ER 20:25 → MEDICAL 21:15 → COL.ER 21:15
PROVIDERS: Emergency Medicine
DX: R07.89 Other chest pain (principal); I10 Essential (primary) hypertension; E78.5 Hyperlipidemia, unspecified; R56.9 Unspecified convulsions; Z86.718 Personal history of other venous thrombosis and embolism; Z98.890 Other specified postprocedural states; Z79.01 Long term (current) use of anticoagulants
CPT/HCPCS: J1200; J2270; J2405

== ENCOUNTER → 2019-01-11 | Outpatient (CLI) | payer MEDICARE, MEDICAID | LOC: BHSO 12:52 | DX: F31.81 Bipolar II disorder (principal) ==

== ENCOUNTER 2019-02-19 14:46 | Emergency (ER) | payer MEDICARE, MEDICAID ==
[~2019-02-19] VITALS: Ht 177.8 cm; Wt 77.3 kg
[2019-02-19 14:56] VITALS: TEMP 98.7
[2019-02-19 16:03] LABS: BASO # 0.1 (0.0-0.2); BASO % 0.9 % (0.0-2.0); EOS # 0.2 (0.0-0.7); EOS % 1.9 % (0-4.0); GRAN # 4.5 (1.4-6.5); GRAN % 55.2 % (42.2-75.2); HEMOGLOBIN 10.2 g/dl (12.5-16.0); LYMPH # 2.8 (1.2-3.4); MEAN CELL VOLUME 97 fl (80.0-100.0); MEAN CORPUSCULAR HEMOGLOBIN 31 pg (27.0-31.0); MEAN CORPUSCULAR HGB CONC 32 g/dl (33.0-37.0); MEAN PLATELET VOLUME 9.9 fl (7.4-10.4); MONO # 0.6 (0.1-0.6); MONO % 7.8 % (1.7-9.3); PLATELET COUNT 264 K/mm3 (130-400); RED BLOOD COUNT 3.27 M/mm3 (4.10-5.30)
[2019-02-19 16:06] LABS: HEMATOCRIT 31.8 % (37.0-47.0)
[2019-02-19 16:10] LABS: INR 1.7 (0.8-3.0); PROTHROMBIN TIME 19.8 SECONDS (9.7-12.8)
[2019-02-19 16:21] LABS: ALANINE AMINOTRANSFERASE 7 U/L (9-52); ALKALINE PHOSPHATASE 111 U/L (50-136); ANION GAP 7 mmol/L (7-16); AST,SGOT 32 U/L (15-37); BILIRUBIN,TOTAL 0.3 mg/dL (0.0-1.0); BLOOD UREA NITROGEN 16 mg/dL (7-17); CALCIUM 9.4 mg/dL (8.4-10.2); CARBON DIOXIDE 25 mmol/L (22-30); CHLORIDE 111 mmol/L (98-107); CREATININE, serum 0.73 (0.52-1.25); GLUCOSE 91 mg/dL (74-106); POTASSIUM 4.1 mmol/L (3.4-5.0); SODIUM 142 mmol/L (137-145); TOTAL PROTEIN 6.9 gm/dL (6.4-8.2)
[2019-02-19 16:31] LABS: TROPONIN-I < 0.012 ng/mL (0.000-0.035)
[2019-02-19] MEDS ORDERED: AMOXICILLIN 8751 TAB PO (16:45)
[2019-02-19 16:50] VITALS: BP 151/81; PULSE 69
== END 2019-02-19 16:57 | disposition home or self-care (01) ==
LOC: COL.ER 14:46
PROVIDERS: Emergency Medicine
DX: H66.92 Otitis media, unspecified, left ear (principal); H72.92 Unspecified perforation of tympanic membrane, left ear; J06.9 Acute upper respiratory infection, unspecified; I48.91 Unspecified atrial fibrillation; I25.10 Atherosclerotic heart disease of native coronary artery without angina pectoris; Z95.1 Presence of aortocoronary bypass graft; Z79.01 Long term (current) use of anticoagulants

== ENCOUNTER → 2019-03-21 | Outpatient (CLI) | payer MEDICARE, MEDICAID ==
[~2019-03-21] MED LIST changes: +AMBIEN 5MG TABLE5 MG PO; +ASPIRIN E.C. 8181 MG PO; +CLARITIN 1010 MG/TAB PO; +COREG12.5 MG PO; +FLONASE NASAL S16 GM NS; +LASIX 40MG TABL40 MG PO; +PEPCID 20MG TAB20 MG PO
[2019-03-21 13:23] LABS: INR 1.4 (0.8-3.0); PROTHROMBIN TIME 16.2 SECONDS (9.7-12.8)
== END ==
LOC: COL.LAB 12:55
PROVIDERS: Physician Assistant
DX: Z51.81 Encounter for therapeutic drug level monitoring (principal)

== ENCOUNTER 2019-06-05 17:15 | Inpatient (IN) | payer MEDICARE, MEDICAID ==
[~2019-06-05] VITALS: Ht 177.8 cm; Wt 84.6 kg
[2019-06-05 17:45] LABS: BASO # 0.1 (0.0-0.2); BASO % 1.1 % (0.0-2.0); EOS # 0.2 (0.0-0.7); EOS % 2.2 % (0-4.0); GRAN # 3.8 (1.4-6.5); GRAN % 51.8 % (42.2-75.2); LYMPH # 2.6 (1.2-3.4); LYMPH % 35.8 % (20.0-51.0); MEAN CELL VOLUME 94 fl (80.0-100.0); MEAN CORPUSCULAR HGB CONC 31 g/dl (33.0-37.0); MONO # 0.6 (0.1-0.6); MONO % 8.8 % (1.7-9.3); PLATELET COUNT 326 K/mm3 (130-400); RED BLOOD COUNT 3.37 M/mm3 (4.10-5.30)
[2019-06-05 17:59] LABS: INR 2.7 (0.8-3.0); PROTHROMBIN TIME 32.8 SECONDS (9.7-12.8)
[2019-06-05 18:02] LABS: PARTIAL THROMBOPLASTIN TIME 54.3 SECONDS (26.0-37.0)
[2019-06-05 18:07] LABS: ALANINE AMINOTRANSFERASE 10 U/L (9-52); ALBUMIN 4.3 gm/dL (3.5-5.0); ALKALINE PHOSPHATASE 107 U/L (50-136); ANION GAP 8 mmol/L (7-16); AST,SGOT 21 U/L (15-37); BILIRUBIN,TOTAL 0.2 mg/dL (0.0-1.0); BLOOD UREA NITROGEN 21 mg/dL (7-17); CALCIUM 9.3 mg/dL (8.4-10.2); CARBON DIOXIDE 22 mmol/L (22-30); CHLORIDE 111 mmol/L (98-107); CREATININE, serum 0.94 (0.52-1.25); GLUCOSE 113 mg/dL (74-106); POTASSIUM 4.3 mmol/L (3.4-5.0); SODIUM 140 mmol/L (137-145); TOTAL PROTEIN 7.3 gm/dL (6.4-8.2)
[2019-06-05 18:09] LABS: HEMATOCRIT 31.6 % (37.0-47.0); HEMOGLOBIN 9.8 g/dl (12.5-16.0); MEAN CORPUSCULAR HEMOGLOBIN 29 pg (27.0-31.0)
[2019-06-05 18:25] LABS: TROPONIN-I < 0.012 ng/mL (0.000-0.035)
--- NOTE | 2019-06-05 19:46 | NUR ---
RECEIVED REPORT FROM FAB BARFIELD IN THE ER. AWAITING ARRIVAL OF PT TO ICU2.
[2019-06-05 20:06] VITALS: BP 172/78; PULSE 47; TEMP 98.5
--- NOTE | 2019-06-05 20:06 | NUR ---
RECEIVED PT FROM ER TO ICU2 VIA [facility]. PT AWAKE AND ABLE TO AMBULATE TO ICU BED. NITRO AND HEPARIN GTT GOING FROM ER. PT PLACED ON BEDSIDE CONTINUOUS MONITOR AND GIVEN CALL LIGHT EDUCATION, VERBALIZED UNDERSTANDING. PT REMINDED TO CALL NURSE IF NEEDING TO GET OOB, VERBALIZED UNDERSTANDING. PT STATES CP IS CURRENTLY 4/10 AT THIS TIME AND IS A DULL ACHE.
[2019-06-05 20:11] VITALS: O2SAT 78
[2019-06-05 20:12] VITALS: O2SAT 99
[2019-06-05 20:19] VITALS: BP 177/72; PULSE 47; TEMP 98.5
[2019-06-05] MEDS ORDERED: HCTZ12.5TAB PO (20:41)
--- NOTE | 2019-06-05 21:03 | NUR ---
SPOKE WITH DR HOUSTON ABOUT DIET ORDER FOR TONIGHT, AHA TILL MIDNIGHT THEN NPO, AND INR 2.7 WITH HEPARIN GTT. PHYSICIAN STATES IT IS OK PT TAKES COUMADIN REGULARLY. PT NOTIFIED OF DIET ORDERS. VERBALIZED UNDERSTANDING.
--- NOTE | 2019-06-05 21:33 | NUR ---
DR CARTER NOTIFIED OF PT'S HR 40-50s AND PT STATES THIS IS NOT NORMAL FOR HER. PHYSICIAN STATES LONG PT IS NOT SYMPTOMATIC WITH BRADYCARDIA AND THE EKG FROM ER SHOWED BRADYCARDIA. CONTINUE TO MONITOR AT THIS TIME. PHYSICIAN STATES TO KEEP PT NPO AFTER MIDNIGHT TONIGHT FOR POTENTIAL CARDIAC CATHERIZATION TOMORROW. PT C/O CP 12/20 AT THIS TIME AND REQUESTING PAIN MEDICATION, SEE SEP.
--- NOTE | 2019-06-05 22:10 | NUR ---
DR HOUSTON STOPPED BY TO CHECK ON PT AND CURRENT VS. NO NEW ORDERS. POX NOTED TO BE 90% ON RA, PT PLACED ON 2L VIA NC AT THIS TIME. EDUCATED PT ON POX AND HELPING WITH OXYGENATION WHILE ON THE CURRENT GTTs AND WITH THE CP, VERBALIZED UNDERSTANDING AND IS COMPLIANT WITH CARE. PT GETS UP TO BSC WITH STANDBY ASSIST. STEADY GAIT NOTED. NO ACUTE S/S OF DISTRESS NOTED. PT ABLE TO READJUST SELF BACK INTO BED. CALL LIGHT WITHIN REACH. IV FLUIDS INFUSING WITHOUT DIFFICULTIES. DENIES ANY FURTHER NEEDS AT THIS TIME.
[2019-06-06] VITALS (23 sets, daily range): BP systolic 103–140; BP diastolic 45–74; PULSE 42–56; TEMP 98–98.8; O2SAT 94–98
[2019-06-06 04:41] LABS: BASO # 0.1 (0.0-0.2); BASO % 0.8 % (0.0-2.0); EOS # 0.1 (0.0-0.7); EOS % 2.2 % (0-4.0); GRAN # 2.4 (1.4-6.5); GRAN % 38.3 % (42.2-75.2); LYMPH # 3.1 (1.2-3.4); LYMPH % 48.7 % (20.0-51.0); MEAN CELL VOLUME 95 fl (80.0-100.0); MEAN CORPUSCULAR HGB CONC 31 g/dl (33.0-37.0); MEAN PLATELET VOLUME 10.1 fl (7.4-10.4); MONO # 0.6 (0.1-0.6); MONO % 9.8 % (1.7-9.3); PLATELET COUNT 255 K/mm3 (130-400); RED BLOOD COUNT 3.14 M/mm3 (4.10-5.30); REDCELL DISTRIBUTION WIDTH-CV 16.3 % (11.5-14.5)
[2019-06-06 04:42] LABS: PROTHROMBIN TIME 36.5 SECONDS (9.7-12.8)
[2019-06-06 04:43] LABS: HEMATOCRIT 29.7 % (37.0-47.0); HEMOGLOBIN 9.2 g/dl (12.5-16.0); MEAN CORPUSCULAR HEMOGLOBIN 29 pg (27.0-31.0)
[2019-06-06 04:49] LABS: CALCIUM 8.8 mg/dL (8.4-10.2); CHOLESTEROL RISK RATIO 3.3; CREATININE, serum 0.75 (0.52-1.25); POTASSIUM 4.5 mmol/L (3.4-5.0)
[2019-06-06 05:19] LABS: TSH w REFLEX 0.563 uIU/mL (0.465-4.680)
--- NOTE | 2019-06-06 09:00 | NUR ---
Pt experiencing severe anxiety and unable to control emotions. Pt states "I almost in this same room". KalinRN House-Loan Processing Supervisor at bedside attempting to console pt. PO anxiety med administered. Pt transfered across peng to ICU 1. at bedside now, pt states she feels better. It was noted that during anxiety episode while pt was crying, pt saw MD Beka in peng and became quite cheerful suddenly, then when their non-medical conversation ended pt resumed the anxious behavior.
--- NOTE | 2019-06-06 09:15 | NUR ---
MD Kaden and Hospitalist team here to see pt
--- NOTE | 2019-06-06 11:07 | NUR ---
Set Key Driver attended clinical rounds with the team. Patient may transfer to medical floor later this afternoon. NEIL met with patient and patient's , Gunner (ph#[phone]) to complete initial intake. Patient lives in [place] with Gunner and sees Dr. Carter for primary care. Patient obtains medications from [facility] pharmacy with no difficulty. Patient does not have any DME and reports independence with ADLS. Patient states she is not sure if she has DPOA-HC but believes at one time she completed paperwork at [facility]. SW contacted [facility] Records Dept. and left a voicemail. Patient states she has a lot of family support and that she also sees a PTSD specialist in [place]. Patient plans to return home upon discharge.
--- NOTE | 2019-06-06 14:02 | NUR ---
First visit from the sound equipment mechanic. No needs right now.
--- NOTE | 2019-06-06 16:29 | NUR ---
Pt has been transfered to Medical floor, YoanaRN recieved report. Pt tolerated transfer well
--- NOTE | 2019-06-06 17:41 | NUR ---
Pt arrived to floor at this time via w/c with ICU staff. Oriented to room, resting in bed with aughter at bedside, will continue to monitor.
--- NOTE | 2019-06-06 17:41 | NUR ---
Pt doing well, up to shower with bringing her clothes from home. Small skin tear to TERESITA where BP cuff was in place. INT removed from RFA d/t pt request and had two iv sites. Pt doing well, denies needs, ambulated around floor with family well. Will give bedside shift report to nightshift nurse who will resume care.
--- NOTE | 2019-06-06 20:25 | NUR ---
Shift assessment complete. Pt resting in bed, awake, a&o, cooperative c cares. Pt reports continued chest pain, slightly increased now "11/19"; PRN pain thoracic medicine specialist per pt req. Pt denies any other c/o. INT patent. Tele in place. Pt s needs. Call light in reach, will continue to monitor.
[2019-06-07 03:34] VITALS: BP 129/76; PULSE 55; TEMP 97.6
[2019-06-07 07:25] LABS: INR 2.7 (0.8-3.0); PROTHROMBIN TIME 32.8 SECONDS (9.7-12.8)
[2019-06-07 07:31] LABS: CALCIUM 9.5 mg/dL (8.4-10.2); CREATININE, serum 0.81 (0.52-1.25); POTASSIUM 4.1 mmol/L (3.4-5.0)
[2019-06-07 07:34] LABS: BASO # 0.1 (0.0-0.2); BASO % 0.7 % (0.0-2.0); EOS # 0.2 (0.0-0.7); EOS % 1.8 % (0-4.0); GRAN # 3.8 (1.4-6.5); LYMPH # 3.2 (1.2-3.4); MEAN CELL VOLUME 95 fl (80.0-100.0); MEAN CORPUSCULAR HEMOGLOBIN 29 pg (27.0-31.0); MEAN CORPUSCULAR HGB CONC 31 g/dl (33.0-37.0); MEAN PLATELET VOLUME 10.3 fl (7.4-10.4); MONO # 0.9 (0.1-0.6); MONO % 11.3 % (1.7-9.3); PLATELET COUNT 263 K/mm3 (130-400); RED BLOOD COUNT 3.46 M/mm3 (4.10-5.30); REDCELL DISTRIBUTION WIDTH-CV 16.1 % (11.5-14.5)
[2019-06-07 07:35] LABS: HEMATOCRIT 32.8 % (37.0-47.0)
[2019-06-07 07:52] VITALS: BP 162/53; PULSE 55; TEMP 98
--- NOTE | 2019-06-07 10:03 | NUR ---
Assessment completed, alert/oriented, vital signs stable, denies chest pain this or discomfort this morning, heart regular/ Sinus Brennen on tele, lungs CTA/ no resp.difficulty noted, discussed plan of care with hospitalist and pending Cardiology recommendation patient will be discharged home later today possibly, she is sititng up in her chair eating breakfast and denies other neeeds at this time
[2019-06-07] MEDS ORDERED: AMOXICILLIN 8751 TAB PO (11:25)
[2019-06-07] MEDS ORDERED: RANEXA 500MG T500 MG PO (11:26)
--- NOTE | 2019-06-07 12:30 | NUR ---
Discharge instrucitons reviewed with the patient and her , instructed to take meds as prescribed, scripts sent to pharmacy for her, IV and tele removed, insturcted to follow up as we have scheduled
== END 2019-06-07 12:30 | disposition home or self-care (01) | DRG 313 ==
LOC: COL.ER 17:15 → ICU 19:11 → MEDICAL 06-06 16:22
PROVIDERS: Emergency Medicine; Hospitalist; Physician Assistant; ADMIT Student in an Organized Health Care Education/Training Program
DX: R07.9 Chest pain, unspecified (principal); R09.81 Nasal congestion; R00.1 Bradycardia, unspecified; F41.9 Anxiety disorder, unspecified; F31.9 Bipolar disorder, unspecified; I25.10 Atherosclerotic heart disease of native coronary artery without angina pectoris; F41.0 Panic disorder [episodic paroxysmal anxiety]; I73.9 Peripheral vascular disease, unspecified; E78.5 Hyperlipidemia, unspecified; K21.9 Gastro-esophageal reflux disease without esophagitis; I25.2 Old myocardial infarction; I48.91 Unspecified atrial fibrillation; M19.90 Unspecified osteoarthritis, unspecified site; I11.0 Hypertensive heart disease with heart failure; I50.9 Heart failure, unspecified; Z79.01 Long term (current) use of anticoagulants; Z79.82 Long term (current) use of aspirin; Z95.1 Presence of aortocoronary bypass graft; Z86.718 Personal history of other venous thrombosis and embolism; Z86.711 Personal history of pulmonary embolism; Z95.820 Peripheral vascular angioplasty status with implants and grafts; Z86.19 Personal history of other infectious and parasitic diseases; Z87.891 Personal history of nicotine dependence
CPT/HCPCS: 99222-AI; 99232-AI; 99239; J1644; J2270; J2405; J7030

== ENCOUNTER → 2019-09-19 | Outpatient (CLI) | payer MEDICARE, MEDICAID ==
[~2019-09-19] MED LIST changes: +HCTZ12.5TAB PO; +PRIL40 PO; +RANEXA 500MG T500 MG PO; +ZITHROMAX 250M250 MG PO
[2019-09-19 15:27] LABS: ERYTHROCYTE SEDIMENTATION RATE 65 mm/hr (0-30)
[2019-09-19 15:32] LABS: IRON,SERUM 32 ug/dL (35-150)
[2019-09-19 15:41] LABS: TOTAL IRON BINDING CAPACITY 442 ug/dL (265-497)
[2019-09-20 09:22] LABS: MEAN CELL VOLUME 87 fl (80.0-100.0); MEAN CORPUSCULAR HGB CONC 29 g/dl (33.0-37.0); MEAN PLATELET VOLUME 11.1 fl (7.4-10.4); PLATELET COUNT 378 K/mm3 (130-400); RED BLOOD COUNT 3.57 M/mm3 (4.10-5.30); REDCELL DISTRIBUTION WIDTH-CV 17.8 % (11.5-14.5)
[2019-09-20 09:35] LABS: HEMATOCRIT 30.9 % (37.0-47.0); HEMOGLOBIN 8.8 g/dl (12.5-16.0); MEAN CORPUSCULAR HEMOGLOBIN 25 pg (27.0-31.0)
[2019-09-20 10:27] LABS: LYMPHOCYTE 11 % (20.0-51.0); METAMYELOCYTE 1 % (0-0); NEUTROPHILS 81 % (42.0-75.2); NUCLEATED RED BLOOD CELL 3 (0-6)
[2019-09-20 10:28] LABS: PLATELET ESTIMATE NORMAL (NORMAL)
== END ==
LOC: COL.LAB 14:27
PROVIDERS: Registered Nurse
DX: D64.9 Anemia, unspecified (principal); M25.50 Pain in unspecified joint; R06.02 Shortness of breath

== ENCOUNTER 2019-09-20 15:57 | Emergency (ER) | payer MEDICARE, MEDICAID ==
[~2019-09-20] VITALS: Ht 177.8 cm; Wt 99.1 kg
[~2019-09-20 15:57] MED LIST changes: -PRIL40 PO; -ZITHROMAX 250M250 MG PO
[2019-09-20 16:06] VITALS: TEMP 98.4
[2019-09-20] MEDS ORDERED: PRIL40 PO (16:35)
[2019-09-20 16:56] LABS: ALANINE AMINOTRANSFERASE 13 U/L (4-34); ALBUMIN 3.7 gm/dL (3.5-5.0); ALKALINE PHOSPHATASE 122 U/L (50-136); ANION GAP 7 mmol/L (7-16); AST,SGOT 24 U/L (15-37); BILIRUBIN,TOTAL 0.3 mg/dL (0.0-1.0); BLOOD UREA NITROGEN 29 mg/dL (7-17); C-REACTIVE PROTEIN 1.6 mg/dL (0.0-0.9); CALCIUM 8.9 mg/dL (8.4-10.2); CARBON DIOXIDE 24 mmol/L (22-30); CHLORIDE 111 mmol/L (98-107); CREATININE, serum 0.81 (0.52-1.25); GLUCOSE 88 mg/dL (74-106); SODIUM 141 mmol/L (137-145); TOTAL PROTEIN 6.7 gm/dL (6.4-8.2)
[2019-09-20 17:02] LABS: INR 0.9 (0.8-3.0); PROTHROMBIN TIME 10.9 SECONDS (9.7-12.8)
[2019-09-20 17:07] LABS: TROPONIN-I < 0.012 ng/mL (0.000-0.035)
[2019-09-20 18:11] LABS: HEMATOCRIT 28.9 % (37.0-47.0); HEMOGLOBIN 8.4 g/dl (12.5-16.0); MEAN CELL VOLUME 85 fl (80.0-100.0); MEAN CORPUSCULAR HEMOGLOBIN 25 pg (27.0-31.0); MEAN CORPUSCULAR HGB CONC 29 g/dl (33.0-37.0); MEAN PLATELET VOLUME 10.3 fl (7.4-10.4); PLATELET COUNT 344 K/mm3 (130-400); RED BLOOD COUNT 3.41 M/mm3 (4.10-5.30); REDCELL DISTRIBUTION WIDTH-CV 17.5 % (11.5-14.5)
[2019-09-20 18:36] LABS: ANISOCYTOSIS 2+; BAND 2 % (0-10); LYMPHOCYTE 21 % (20.0-51.0); METAMYELOCYTE 1 % (0-0); NEUTROPHILS 67 % (42.0-75.2); PLATELET ESTIMATE NORMAL (NORMAL)
[2019-09-20 18:37] LABS: BURR CELLS 1+; MICROCYTOSIS 1+; OVALOCYTES 1+; POIKILOCYTOSIS 2+; SPHEROCYTE 1+
[2019-09-20] MEDS ORDERED: ZITHROMAX 250M250 MG PO (19:18)
[2019-09-20 19:40] VITALS: BP 16/70; PULSE 55
== END 2019-09-20 19:47 | disposition left against medical advice (07) ==
LOC: COL.ER 15:57
PROVIDERS: Emergency Medicine
DX: R06.02 Shortness of breath (principal); D64.9 Anemia, unspecified; I48.91 Unspecified atrial fibrillation; I25.10 Atherosclerotic heart disease of native coronary artery without angina pectoris; I10 Essential (primary) hypertension; B19.20 Unspecified viral hepatitis C without hepatic coma; G40.909 Epilepsy, unspecified, not intractable, without status epilepticus; Z79.01 Long term (current) use of anticoagulants; Z79.82 Long term (current) use of aspirin; Z86.718 Personal history of other venous thrombosis and embolism; Z87.891 Personal history of nicotine dependence; Z95.5 Presence of coronary angioplasty implant and graft
CPT/HCPCS: J0696; Q9967

== ENCOUNTER 2021-03-04 14:51 | Inpatient (IN) | payer MEDICARE, MEDICAID ==
[~2021-03-04] VITALS: Ht 177.8 cm; Wt 86.4 kg
[~2021-03-04 14:51] MED LIST changes: +PRIL40 PO; +ZITHROMAX 250M250 MG PO
[2021-03-04 16:03] LABS: BASO # 0.1 (0.0-0.2); BASO % 0.7 % (0.0-2.0); EOS # 0.2 (0.0-0.7); EOS % 2.4 % (0-4.0); GRAN # 4.9 (1.4-6.5); GRAN % 70.4 % (42.2-75.2); HEMATOCRIT 34.8 % (37.0-47.0); HEMOGLOBIN 10.7 g/dl (12.5-16.0); LYMPH # 0.9 (1.2-3.4); LYMPH % 13.4 % (20.0-51.0); MEAN CELL VOLUME 104 fl (80.0-100.0); MEAN CORPUSCULAR HEMOGLOBIN 32 pg (27.0-31.0); MEAN CORPUSCULAR HGB CONC 31 g/dl (33.0-37.0); MEAN PLATELET VOLUME 11.1 fl (7.4-10.4); MONO # 0.9 (0.1-0.6); MONO % 12.8 % (1.7-9.3); PLATELET COUNT 180 K/mm3 (130-400); RED BLOOD COUNT 3.34 M/mm3 (4.10-5.30); REDCELL DISTRIBUTION WIDTH-CV 14.5 % (11.5-14.5)
[2021-03-04 16:04] LABS: INR 1.1 (0.8-3.0); PROTHROMBIN TIME 12.3 SECONDS (9.7-12.8)
[2021-03-04 16:10] LABS: ALANINE AMINOTRANSFERASE 18 U/L (4-34); ALBUMIN 3.9 gm/dL (3.5-5.0); ALKALINE PHOSPHATASE 113 U/L (50-136); ANION GAP 8 mmol/L (7-16); AST,SGOT 43 U/L (15-37); BILIRUBIN,TOTAL 0.2 mg/dL (0.0-1.0); BLOOD UREA NITROGEN 29 mg/dL (7-17); CALCIUM 8.8 mg/dL (8.4-10.2); CARBON DIOXIDE 20 mmol/L (22-30); CHLORIDE 112 mmol/L (98-107); CREATININE, serum 1.42 (0.52-1.25); GLUCOSE 137 mg/dL (74-106); POTASSIUM 3.5 mmol/L (3.4-5.0); SODIUM 140 mmol/L (137-145); TOTAL PROTEIN 7.4 gm/dL (6.4-8.2)
[2021-03-04 16:26] LABS: TROPONIN-I < 0.012 ng/mL (0.000-0.035)
[2021-03-04] MEDS ORDERED: FOLIKA-NC TABL1 EACH PO (16:27)
[2021-03-04] MEDS ORDERED: NATURE'S BLE1000 MCG (16:27)
[2021-03-04] MEDS ORDERED: PHARMASSURE CHE30 MG PO (16:28)
[2021-03-04 16:34] LABS: LIPASE 193 U/L (23-300)
[2021-03-04 17:18] LABS: TSH w REFLEX 0.828 uIU/mL (0.350-4.940)
[2021-03-04 17:35] LABS: COLLECTION METHOD CLEAN CATCH
[2021-03-04 17:42] LABS: MUCOUS Present /lpf; PH 5 (5-8); SQUAMOUS EPITHELIAL None Seen /hpf; URINE APPEARANCE Hazy; URINE BACTERIA None Seen /hpf; URINE BILIRUBIN Negative (NEGATIVE); URINE BLOOD Negative (NEGATIVE); URINE COLOR Yellow; URINE GLUCOSE Negative (NEGATIVE); URINE KETONE Negative (NEGATIVE); URINE LEUKOCYTE ESTERASE 1+ (NEGATIVE); URINE NITRATE Negative (NEGATIVE); URINE PROTEIN(semi-quant) 1+ (NEGATIVE); URINE RBC 0-2 /hpf; URINE UROBILINOGEN Negative (NEGATIVE)
[2021-03-04 21:34] VITALS: BP 179/87; PULSE 79; TEMP 98.4
[2021-03-05] VITALS (7 sets, daily range): BP systolic 109–141; BP diastolic 43–59; PULSE 65–73; TEMP 98.7–101.7
[2021-03-05 07:42] LABS: BASO % 0.5 % (0.0-2.0); EOS # 0.2 (0.0-0.7); EOS % 2.1 % (0-4.0); GRAN # 5.6 (1.4-6.5); GRAN % 63.9 % (42.2-75.2); LYMPH # 1.7 (1.2-3.4); LYMPH % 19.1 % (20.0-51.0); MEAN CELL VOLUME 104 fl (80.0-100.0); MEAN CORPUSCULAR HEMOGLOBIN 33 pg (27.0-31.0); MEAN CORPUSCULAR HGB CONC 32 g/dl (33.0-37.0); MONO # 1.2 (0.1-0.6); MONO % 13.9 % (1.7-9.3); PLATELET COUNT 161 K/mm3 (130-400); RED BLOOD COUNT 3.04 M/mm3 (4.10-5.30); REDCELL DISTRIBUTION WIDTH-CV 14.3 % (11.5-14.5)
[2021-03-05 07:45] LABS: HEMATOCRIT 31.5 % (37.0-47.0)
[2021-03-05 11:01] LABS: CALCIUM 8.4 mg/dL (8.4-10.2); CREATININE, serum 1.14 (0.52-1.25); POTASSIUM 4.1 mmol/L (3.4-5.0)
[2021-03-06] VITALS: BP 120/39; PULSE 60; TEMP 98.8
[2021-03-06 03:58] VITALS: BP 138/49; PULSE 59; TEMP 98.2
[2021-03-06 07:56] VITALS: BP 130/50; PULSE 68; TEMP 98.9
[2021-03-06 08:41] LABS: BASO % 0.4 % (0.0-2.0); EOS # 0.3 (0.0-0.7); EOS % 3.6 % (0-4.0); GRAN # 4.8 (1.4-6.5); GRAN % 68.4 % (42.2-75.2); LYMPH # 0.9 (1.2-3.4); LYMPH % 13.3 % (20.0-51.0); MEAN CELL VOLUME 103 fl (80.0-100.0); MEAN CORPUSCULAR HGB CONC 32 g/dl (33.0-37.0); MEAN PLATELET VOLUME 11.5 fl (7.4-10.4); MONO % 13.9 % (1.7-9.3); PLATELET COUNT 171 K/mm3 (130-400); RED BLOOD COUNT 2.71 M/mm3 (4.10-5.30); REDCELL DISTRIBUTION WIDTH-CV 14.1 % (11.5-14.5)
[2021-03-06 08:45] LABS: HEMATOCRIT 27.8 % (37.0-47.0); HEMOGLOBIN 8.8 g/dl (12.5-16.0); MEAN CORPUSCULAR HEMOGLOBIN 32 pg (27.0-31.0)
[2021-03-06 09:00] LABS: ALBUMIN 3.2 gm/dL (3.5-5.0); BILIRUBIN,TOTAL 0.1 mg/dL (0.0-1.0); CALCIUM 8.6 mg/dL (8.4-10.2); CREATININE, serum 0.9 (0.52-1.25); POTASSIUM 4.1 mmol/L (3.4-5.0); TOTAL PROTEIN 6.1 gm/dL (6.4-8.2)
[2021-03-06 12:34] VITALS: BP 104/35; PULSE 64; TEMP 99.1
[2021-03-06 12:36] VITALS: BP 104/39
[2021-03-06 16:42] VITALS: BP 116/48; PULSE 63; TEMP 99.5
[2021-03-07] VITALS (7 sets, daily range): BP systolic 114–145; BP diastolic 40–92; PULSE 58–68; TEMP 98–99.4
[2021-03-07 07:01] LABS: MEAN CELL VOLUME 106 fl (80.0-100.0); MEAN CORPUSCULAR HGB CONC 31 g/dl (33.0-37.0); MEAN PLATELET VOLUME 11.3 fl (7.4-10.4); PLATELET COUNT 163 K/mm3 (130-400); RED BLOOD COUNT 2.59 M/mm3 (4.10-5.30); REDCELL DISTRIBUTION WIDTH-CV 13.9 % (11.5-14.5)
[2021-03-07 07:03] LABS: HEMATOCRIT 27.4 % (37.0-47.0); HEMOGLOBIN 8.5 g/dl (12.5-16.0); MEAN CORPUSCULAR HEMOGLOBIN 33 pg (27.0-31.0)
[2021-03-07 07:14] LABS: CALCIUM 8.7 mg/dL (8.4-10.2); CREATININE, serum 1.03 (0.52-1.25); POTASSIUM 4.1 mmol/L (3.4-5.0)
[2021-03-08 00:55] VITALS: BP 127/64; PULSE 63; TEMP 98.5
[2021-03-08 04:46] VITALS: BP 137/54; PULSE 61; TEMP 99.3
[2021-03-08 07:50] VITALS: BP 138/51; PULSE 63; TEMP 98.6
[2021-03-08 10:16] LABS: MEAN CELL VOLUME 104 fl (80.0-100.0); MEAN CORPUSCULAR HGB CONC 31 g/dl (33.0-37.0); MEAN PLATELET VOLUME 10.3 fl (7.4-10.4); PLATELET COUNT 229 K/mm3 (130-400); RED BLOOD COUNT 2.58 M/mm3 (4.10-5.30); REDCELL DISTRIBUTION WIDTH-CV 13.5 % (11.5-14.5)
[2021-03-08 10:19] LABS: HEMATOCRIT 26.8 % (37.0-47.0); HEMOGLOBIN 8.3 g/dl (12.5-16.0); MEAN CORPUSCULAR HEMOGLOBIN 32 pg (27.0-31.0)
[2021-03-08 10:36] LABS: CALCIUM 8.9 mg/dL (8.4-10.2); CREATININE, serum 0.83 (0.52-1.25); POTASSIUM 3.8 mmol/L (3.4-5.0)
[2021-03-08 10:51] LABS: C-REACTIVE PROTEIN 14.4 mg/dL (0.0-0.9)
[2021-03-08 11:28] VITALS: BP 108/45; PULSE 56; TEMP 98.1
[2021-03-08 15:51] VITALS: BP 124/51; PULSE 56; TEMP 98.1
== END 2021-03-08 18:53 | disposition left against medical advice (07) | DRG 196 ==
LOC: COL.ER 14:51 → MEDICAL 18:21
PROVIDERS: Emergency Medicine; Internal Medicine; Physician Assistant; Student in an Organized Health Care Education/Training Program; ADMIT Student in an Organized Health Care Education/Training Program
DX: J84.9 Interstitial pulmonary disease, unspecified (principal); J96.01 Acute respiratory failure with hypoxia; N17.9 Acute kidney failure, unspecified; I50.42 Chronic combined systolic (congestive) and diastolic (congestive) heart failure; N39.0 Urinary tract infection, site not specified; R91.8 Other nonspecific abnormal finding of lung field; R07.89 Other chest pain; E87.6 Hypokalemia; I48.0 Paroxysmal atrial fibrillation; K21.9 Gastro-esophageal reflux disease without esophagitis; F39 Unspecified mood [affective] disorder; D64.9 Anemia, unspecified; Z53.29 Procedure and treatment not carried out because of patient's decision for other reasons; Z66 Do not resuscitate; E78.5 Hyperlipidemia, unspecified; I11.0 Hypertensive heart disease with heart failure; F41.0 Panic disorder [episodic paroxysmal anxiety]; Z20.822 Contact with and (suspected) exposure to COVID-19; I25.10 Atherosclerotic heart disease of native coronary artery without angina pectoris; Z95.1 Presence of aortocoronary bypass graft; Z86.718 Personal history of other venous thrombosis and embolism; Z86.711 Personal history of pulmonary embolism; Z95.818 Presence of other cardiac implants and grafts
CPT/HCPCS: 99232-AI; 99233-AI; A9284; G0378; J0696; J1644; J2270; J2920; J7030; Q9967

== ENCOUNTER 2022-02-19 21:18 | Observation (INO) | payer MEDICARE, MEDICAID ==
[~2022-02-19] VITALS: Ht 177.8 cm; Wt 113.5 kg
[~2022-02-19 21:18] MED LIST changes: +FOLIKA-NC TABL1 EACH PO; +NATURE'S BLE1000 MCG; +PHARMASSURE CHE30 MG PO
[2022-02-19 21:28] LABS: BASO # 0.1 K/mm3 (0.0-0.2); BASO % 0.9 % (0.0-2.0); EOS # 0.3 K/mm3 (0.0-0.7); EOS % 2.4 % (0.0-4.0); GRAN # 6.4 K/mm3 (1.4-6.5); GRAN % 62.1 % (42.2-75.2); LYMPH # 2.4 K/mm3 (1.2-3.4); LYMPH % 23.5 % (20.0-51.0); MEAN CELL VOLUME 100 fl (80.0-100.0); MEAN CORPUSCULAR HGB CONC 28 g/dl (33.0-37.0); MEAN PLATELET VOLUME 10.8 fl (7.4-10.4); MONO # 1.1 K/mm3 (0.1-0.6); MONO % 10.7 % (1.7-9.3); PLATELET COUNT 339 K/mm3 (130-400); RED BLOOD COUNT 2.83 M/mm3 (4.10-5.30); REDCELL DISTRIBUTION WIDTH-CV 17.3 % (11.5-14.5)
[2022-02-19 21:29] LABS: HEMATOCRIT 28.2 % (37.0-47.0); MEAN CORPUSCULAR HEMOGLOBIN 28 pg (27-31)
[2022-02-19 22:28] LABS: ALBUMIN 2.8 gm/dL (3.4-4.8); BILIRUBIN,TOTAL 0.2 mg/dL (0.2-1.2); CALCIUM 8.8 mg/dL (8.4-10.2); CREATININE, serum 1.2 mg/dL (0.57-1.11); POTASSIUM 4.4 mmol/L (3.5-4.5); TOTAL PROTEIN 6.2 gm/dL (6.2-8.1)
[2022-02-19 22:31] LABS: TROPONIN-I 0.01 ng/mL (0.00-0.033)
[2022-02-19] MEDS ORDERED: PEPCID 20MG TAB20 MG PO (23:48)
[2022-02-19] MEDS ORDERED: XARELTO2.5 MG PO (23:49)
[2022-02-19] MEDS ORDERED: PRIL40 PO (23:49)
[2022-02-19] MEDS ORDERED: VALIUM 5MG T5 MG/TAB PO (23:49)
[2022-02-19] MEDS ORDERED: COREG 25MG25 MG/TAB PO (23:49)
[2022-02-19] MEDS ORDERED: LASIX 40MG TABL40 MG PO (23:50)
[2022-02-19] MEDS ORDERED: LIPITOR 40MG TA40 MG PO (23:50)
[2022-02-19] MEDS ORDERED: TRELEGY ELLIPT1 EACH IH (23:50)
[2022-02-19] MEDS ORDERED: PROAIR HFA0.09 MG/AC IH (23:51)
[2022-02-19] MEDS ORDERED: IMDUR 60MG60 MG/TAB PO (23:51)
[2022-02-19] MEDS ORDERED: VTAMINC250TA PO (23:55)
[2022-02-19] MEDS ORDERED: VITAMIN D31000 I1 PO (23:55)
[2022-02-19] MEDS ORDERED: [UNRECOGNIZED DRUG - OTHER] PO (23:56)
[2022-02-20] MEDS ORDERED: CATAPRES 0.1MG0.1 MG PO (00:03)
[2022-02-20 04:47] LABS: CHOLESTEROL RISK RATIO 3.3
[2022-02-20 04:52] LABS: TROPONIN-I 6 HR POST INITIAL 0.025 ng/mL (0.00-0.033)
[2022-02-20 05:15] VITALS: BP 136/46; PULSE 46; TEMP 98.4
--- NOTE | 2022-02-20 05:35 | NUR ---
THE PATIENT WAS BROUGHT UP TO THE MEDICAL FLOOR AT THIS TIME. PT C/O PAIN, MEDICATIONS GIVEN PER MAR. NO OTHER CONCERNS. PATIENT LAYING IN BED AT THIS TIME.
[2022-02-20 07:25] VITALS: BP 111/67; PULSE 92; TEMP 98.4
[2022-02-20 07:35] LABS: BASO # 0.1 K/mm3 (0.0-0.2); BASO % 0.8 % (0.0-2.0); EOS # 0.2 K/mm3 (0.0-0.7); EOS % 2.3 % (0.0-4.0); GRAN # 5.4 K/mm3 (1.4-6.5); GRAN % 65.9 % (42.2-75.2); LYMPH # 1.7 K/mm3 (1.2-3.4); LYMPH % 20.3 % (20.0-51.0); MEAN CELL VOLUME 99 fl (80.0-100.0); MEAN CORPUSCULAR HGB CONC 28 g/dl (33.0-37.0); MEAN PLATELET VOLUME 9.9 fl (7.4-10.4); MONO # 0.9 K/mm3 (0.1-0.6); MONO % 10.3 % (1.7-9.3); PLATELET COUNT 309 K/mm3 (130-400); RED BLOOD COUNT 2.71 M/mm3 (4.10-5.30)
[2022-02-20 07:49] LABS: CALCIUM 9.1 mg/dL (8.4-10.2); CREATININE, serum 1.09 mg/dL (0.57-1.11); POTASSIUM 4.5 mmol/L (3.5-4.5)
[2022-02-20 07:57] LABS: HEMATOCRIT 26.7 % (37.0-47.0); HEMOGLOBIN 7.5 g/dl (12.5-16.0); MEAN CORPUSCULAR HEMOGLOBIN 28 pg (27-31)
--- NOTE | 2022-02-20 07:58 | NUR ---
PRN morphine given for 10/10 aching chest and back pain. Primary nurse aware.
--- NOTE | 2022-02-20 08:56 | NUR ---
PT FOUND LYING IN BED, ALERT AND ORIENTED. SHIFT ASSESMENT PERFORMED, PT COMPLAINED OF PAIN ALL OVER, RATING PAIN AT A 7. PT EDUCATED ON NPO STATUS. CALL LIGHT WITHIN REACH, PT RESTING IN BED.
[2022-02-20 09:00] VITALS: BP 133/57; PULSE 74; TEMP 98.1
--- NOTE | 2022-02-20 09:47 | NUR ---
lubrication worker met with patient to complete intake and discuss discharge plan. Patient reports that she lives at home with her Gunner ([phone]) in [place]. Gunner is present at bedside. Patient reports that she is somewhat independent with her ADL's but her helps her with a lot. SHe does not have home health services established at this time. Patient reports that she utilizes the [place] in her apartment to help ambulate. She states that she has a concentrator at home for oxygen, however she endorses to only using it PRN. At this time she is on 2L at rest. Patient is unable to recall what company supplies her home oxygen. PCP is and she utilizes [facility] for prescriptions. Patient reports that she does not have a DPOA-HC established at this time but is interested in establishing one stating " i don't have a good relationship with my daughters". DPOA-HC paperwork provided to the patient with instructions. Informed patient i will check back to complete it before discharge. SW asked hospitalist to order PT/OT eval on the patient. Discharge plan: Home; pending PT/OT rec's
[2022-02-20] MEDS ORDERED: NATURAL E400 IU PO (10:22)
--- NOTE | 2022-02-20 10:40 | NUR ---
ADMISSION INTAKE AND ASSESSMENT COMPLETED. MED REC UPDATED. PT AND FAMILY ORIENTED TO ROOM. PT REPORTS BACK PAIN AND SOB. UPDATED ON POC. WILL CONTINUE TO MONITOR.
[2022-02-20 11:10] VITALS: BP 129/63; PULSE 76; TEMP 98.2
--- NOTE | 2022-02-20 14:00 | NUR ---
PT FOUND SITTING UP IN BED COMPLAINING OF NAUSEA, DIZZINESS, AND INTENSE PAIN IN BACK, CHEST AND ABDOMEN. PT STATED " I THINK i'M DYING" AND "THE ROOM WONT STOP SPINNING." FAB LORD GAVE IV ZOFRAN AND MORPHINE. AFTER 10 MINUTES, PT'S BP WAS FOUND TO BE 83/43. DR VAZQUEZ WAS NOTIFIED AND ORDEERED A STAT ABDOMINAL CT. COMFORT MEASURES WERE APPLIED AND THE PT RETURNED TO A STABLE CONDITION ON RETURN FROM THE CT. PT IS VISITING WITH FAMILY.
[2022-02-20 16:05] VITALS: BP 103/57; PULSE 88
[2022-02-20 19:33] VITALS: BP 103/52; PULSE 80; TEMP 98.6
--- NOTE | 2022-02-20 19:40 | NUR ---
TX GIVEN VIA MASK, TOLERATED WELL. FAMILY X 1 AT BEDSIDE.
[2022-02-21] VITALS (7 sets, daily range): BP systolic 96–140; BP diastolic 42–79; PULSE 63–84; TEMP 97.7–99.8
[2022-02-21 06:19] LABS: BASO # 0.1 K/mm3 (0.0-0.2); BASO % 0.6 % (0.0-2.0); EOS # 0.2 K/mm3 (0.0-0.7); EOS % 2.3 % (0.0-4.0); GRAN # 5.1 K/mm3 (1.4-6.5); GRAN % 62.1 % (42.2-75.2); LYMPH # 1.9 K/mm3 (1.2-3.4); LYMPH % 23.2 % (20.0-51.0); MEAN CELL VOLUME 95 fl (80.0-100.0); MEAN CORPUSCULAR HGB CONC 30 g/dl (33.0-37.0); MEAN PLATELET VOLUME 10.3 fl (7.4-10.4); MONO # 0.9 K/mm3 (0.1-0.6); MONO % 11.4 % (1.7-9.3); PLATELET COUNT 401 K/mm3 (130-400); RED BLOOD COUNT 2.83 M/mm3 (4.10-5.30); REDCELL DISTRIBUTION WIDTH-CV 16.7 % (11.5-14.5)
[2022-02-21 06:21] LABS: HEMATOCRIT 26.8 % (37.0-47.0); HEMOGLOBIN 7.9 g/dl (12.5-16.0); MEAN CORPUSCULAR HEMOGLOBIN 28 pg (27-31)
[2022-02-21 06:34] LABS: CALCIUM 9.5 mg/dL (8.4-10.2); CREATININE, serum 1.47 mg/dL (0.57-1.11); POTASSIUM 4.7 mmol/L (3.5-4.5)
[2022-02-21 06:36] LABS: TOTAL PROTEIN 6.2 gm/dL (6.2-8.1)
[2022-02-21 06:38] LABS: TROPONIN-I 0.015 ng/mL (0.00-0.033)
[2022-02-21 07:02] LABS: THYROID STIMULATING HORMONE 1.866 uIU/mL (0.350-4.940)
--- NOTE | 2022-02-21 07:10 | NUR ---
REPORT GIVEN TO FAB LORD. THE PATIENT HAD EVENTFUL NIGHT. THE PATIENT HAD SEVERAL EPISODES OF TACHYCARDIA IN THE 140'S, EKG OBTAINED, NO CONCERNS. THE PATIENT DISPLAYS HIGH ANXIETY, IS VERY TEARFUL AND AFTER AN EPISODE OF TACHYCARDIA, THE PATIENT CRIES A LOT. NO OTHER CONCERNS. TRANSFER OF CARE COMPELTE.
--- NOTE | 2022-02-21 09:40 | NUR ---
PT RESTING IN BED. MORNING MEDICATIONS GIVEN. SHIFT ASSESSMENT COMPLETED. PT COMPLAINING OF CHEST/SHOULDER PAIN, MEDICATION GIVEN PER eMAR. PT BREATHING SOUNDS IMPROVED, CURRENTLY BREATHING ROOM AIR. JUAREZ DRAINING WELL. WILL CONTINUE TO MONITOR.
[2022-02-21 19:33] LABS: LYME DISEASE ANTIBODIES Negative (Negative)
--- NOTE | 2022-02-21 20:00 | NUR ---
Initial shift assessment done- states has pain to neck, and front chest area- states its hard to describe/ache/pressure only about 2/10 at this time-- did have roxicodone at shift change, o2 at 3L/nc, denies SOB at rest, Tele on, [place] with clear yellow urine, states she just feels her legs are weak- wants to just get some sleep tonight-
[2022-02-22] VITALS (7 sets, daily range): BP systolic 85–135; BP diastolic 38–57; PULSE 71–98; TEMP 97.9–99.3
--- NOTE | 2022-02-22 07:00 | NUR ---
Did get some sleep last night-- VSS, o2 sats 92-95% on the 3L/nc, did get Roxicodone during the night as ordered for pain {neck/shoulder/upper chest}.
--- NOTE | 2022-02-22 09:00 | NUR ---
Patient is resting in bed, alert and oriented x 4, VSS. Telemetry in place, NSR. Assessment completed. No other needs at this time. Call light within reach.
--- NOTE | 2022-02-22 11:29 | NUR ---
Patient blood pressure taken in chair was low. Pt was transfered to the bed and BP was taken supine in both sideds SBP 100's. Reported to Dr Charles Oneal ordered 500 NS bolus.
[2022-02-22 15:16] LABS: CADMIUM BLOOD 0.6 ng/mL (<5.0); LEAD,SERUM** <1.0 mcg/dL (<5.0); MERCURY,SERUM <1 ng/mL (<10)
--- NOTE | 2022-02-22 18:27 | NUR ---
Martina is having dinner right now. States her pain is less. at the bedside. She is gettin antibiotics per orders. Complained of some pain in her stomach. Report will be given to night RN.
--- NOTE | 2022-02-22 20:45 | NUR ---
Initial shift assessment done- mari villatoro, states it been a rough day overall, is just leaving now to head home, pt states has pain to neck, shoulder, upper chest area, states the Morphine IV works the best - will give at this time, o2 at 2.5L/nc, sats 93%, very slight lower extremity edema, Tele on, VSS
[2022-02-23] VITALS (10 sets, daily range): BP systolic 112–143; BP diastolic 42–60; PULSE 66–79; TEMP 97.1–98.8
--- NOTE | 2022-02-23 00:30 | NUR ---
Did call Milena SCHWARTZ for 2 episodes of tachycardia within the past couple hours-- pt was just sleeping, vitals were stable- no new orders.
--- NOTE | 2022-02-23 06:00 | NUR ---
Did sleep for a couple of hours last night-- IV site to L/FA was leaking, new site started with 22g to right wrist at this time- getting her Doxycycline IV as ordered at this time,, Did get 2 doses of Morphine IV during the night for neck/shoulder/back upper chest pain- did bring pain back down to 2/10 after the morphine- o2 continues at 2.5L/nc, pt not as teary as beginning of shift- in better spirits . VSS throughout the shift.
[2022-02-23 06:21] LABS: BASO # 0.1 K/mm3 (0.0-0.2); BASO % 0.9 % (0.0-2.0); EOS # 0.2 K/mm3 (0.0-0.7); EOS % 3.2 % (0.0-4.0); GRAN # 3.2 K/mm3 (1.4-6.5); GRAN % 58.6 % (42.2-75.2); LYMPH # 1.3 K/mm3 (1.2-3.4); LYMPH % 24.1 % (20.0-51.0); MEAN CORPUSCULAR HGB CONC 28 g/dl (33.0-37.0); MEAN PLATELET VOLUME 9.7 fl (7.4-10.4); MONO # 0.7 K/mm3 (0.1-0.6); PLATELET COUNT 355 K/mm3 (130-400); RED BLOOD COUNT 2.55 M/mm3 (4.10-5.30); REDCELL DISTRIBUTION WIDTH-CV 16.7 % (11.5-14.5)
[2022-02-23 06:31] LABS: HEMATOCRIT 25.7 % (37.0-47.0); HEMOGLOBIN 7.1 g/dl (12.5-16.0); MEAN CELL VOLUME 101 fl (80.0-100.0); MEAN CORPUSCULAR HEMOGLOBIN 28 pg (27-31)
[2022-02-23 06:35] LABS: ALBUMIN 2.5 gm/dL (3.4-4.8); CALCIUM 9.3 mg/dL (8.4-10.2); CREATININE, serum 1.07 mg/dL (0.57-1.11); MAGNESIUM 2.2 mg/dL (1.6-2.6); PHOSPHOROUS 3.6 mg/dL (2.3-4.7); POTASSIUM 4.3 mmol/L (3.5-4.5)
--- NOTE | 2022-02-23 08:00 | NUR ---
Patient is resting in bed, alert and oriented x 4, VSS. States her pain is 9.5/10, PRN morphine provided. Telemetry in pace, NSR. SCD's on. 2.5L O2 NC. Patient mood has been unstable, she has been crying at night. Assessment completed, no other needs at this time. Call light within reach.
--- NOTE | 2022-02-23 19:19 | NUR ---
Patient has been resting most of the day. She got all her meds per orders. Aware of pending procedures. Report will be given to night RN.
--- NOTE | 2022-02-23 22:56 | NUR ---
Patient given PRN Roxicodone for pain as requested. Patient recieving 1 unit PRBC per orders. Tolerating well so far. Patient voices no questions, needs, or concerns at this time. In bed with call light within reach.
[2022-02-24] VITALS (7 sets, daily range): BP systolic 124–149; BP diastolic 48–79; PULSE 64–73; TEMP 97.8–99
[2022-02-24 02:15] LABS: HEMATOCRIT 28.1 % (37.0-47.0); HEMOGLOBIN 8.2 g/dl (12.5-16.0)
--- NOTE | 2022-02-24 06:11 | NUR ---
Patient recieved one unit of blood during the night per orders. HMG 7.1 prior to transfusion, and increased to 8.2. Given PRN Roxicodone for pain as requested during the night. Voices no further questions, needs, or concerns at this time. In bed with call light within reach.
[2022-02-24 06:23] LABS: BASO # 0.1 K/mm3 (0.0-0.2); EOS # 0.1 K/mm3 (0.0-0.7); EOS % 2.7 % (0.0-4.0); GRAN # 2.7 K/mm3 (1.4-6.5); GRAN % 51.2 % (42.2-75.2); LYMPH # 1.6 K/mm3 (1.2-3.4); LYMPH % 29.6 % (20.0-51.0); MEAN CORPUSCULAR HGB CONC 29 g/dl (33.0-37.0); MEAN PLATELET VOLUME 9.9 fl (7.4-10.4); MONO # 0.8 K/mm3 (0.1-0.6); MONO % 15.1 % (1.7-9.3); PLATELET COUNT 367 K/mm3 (130-400); RED BLOOD COUNT 2.81 M/mm3 (4.10-5.30); REDCELL DISTRIBUTION WIDTH-CV 17.6 % (11.5-14.5)
[2022-02-24 06:40] LABS: HEMATOCRIT 27.1 % (37.0-47.0); HEMOGLOBIN 7.9 g/dl (12.5-16.0); MEAN CELL VOLUME 96 fl (80.0-100.0); MEAN CORPUSCULAR HEMOGLOBIN 28 pg (27-31)
[2022-02-24 06:41] LABS: ALBUMIN 2.5 gm/dL (3.4-4.8); CALCIUM 8.8 mg/dL (8.4-10.2); CREATININE, serum 1.02 mg/dL (0.57-1.11); MAGNESIUM 2.1 mg/dL (1.6-2.6); PHOSPHOROUS 3.4 mg/dL (2.3-4.7); POTASSIUM 4.1 mmol/L (3.5-4.5)
--- NOTE | 2022-02-24 11:55 | NUR ---
Patient alert and oriented, complaints of 9 out of 10 pain in all joints and back. IV morphine given. Patient R wrist IV infiltrated, removed and replaced. Lung bases diminished. Patient seems very anxious in general. Bowels sounds X4. No complaints on urinatation. Patient plan for Lumbar puncture today.
[2022-02-24] MEDS ORDERED: JARDIANCE10 PO (15:02)
[2022-02-24] MEDS ORDERED: ASPIRIN 81M81 MG/TA2 PO (15:03)
[2022-02-24 15:30] LABS: CSF APPEARANCE CLEAR; CSF COLOR COLORLESS; CSF RBC 124 /mm3 (0-0)
[2022-02-24 15:38] LABS: TOTAL PROTEIN,CSF 30 mg/dL (15-45)
--- NOTE | 2022-02-24 16:05 | NUR ---
mesh worker met with patient and patients at bedside to see if they found the name of the oxygen company the patient is established. At this time they have not but the husbandis running home to look at their current concentrator and will bring back the companies information.
[2022-02-24 16:56] LABS: CSF MONONUCLEAR 100 % (70-100); CSF POLYMORPHONUCLEAR 0 % (0-6)
--- NOTE | 2022-02-24 18:38 | NUR ---
Patient tolerated Lumbar punture well today. Pain management with IV morphine and [place]. Anxiety is main concern for patient. 2l O2 NC continuosly needed. Ex OX in am. Possible discharge tomorrow.
--- NOTE | 2022-02-24 21:36 | NUR ---
Patient assessed around 1999. Patient seems to be in good mood, joking and laughing in recliner with friend visiting. Did complain of level 8 pain to back, and given PRN Roxicodone as requested for pain. Bandaid to LP site on back CDI. Patient and friend talking about he refusal of EGD and Colonoscpy. Patient stated that she was embarassed and felt like if she did the bowel prep here, she would have an accident. Tried to reassure patient that we are here to help her and help her get better, but stated she still would rather do colonoscopy outpatient. Asked about why she didnt want to do the EGD, and stated she would not mind doing an EGD here. Friend encouraging patient to get as much done while in the hospital to see what is wrong. Explained that we would have to talk to the physician and see if they would still like to do an EGD, or if they want to continue to follow up outpatient, and voiced understanding. Will communicate with day shift to talk to GI regarding tests. Patient voices no further questions, needs, or concerns at this time. In bed with call light within reach.
[2022-02-25 03:59] VITALS: BP 127/57; PULSE 65; TEMP 98.5
--- NOTE | 2022-02-25 05:43 | NUR ---
Elroy has recieved PRN Roxicodone about every 4 hours during the night. Reports it is chronic back pain. Patient voices no further questions, needs, or concerns at this time. In recliner with call light within reach.
[2022-02-25 06:38] LABS: BASO # 0.1 K/mm3 (0.0-0.2); BASO % 1.1 % (0.0-2.0); EOS # 0.2 K/mm3 (0.0-0.7); GRAN # 3.1 K/mm3 (1.4-6.5); GRAN % 54.9 % (42.2-75.2); LYMPH # 1.6 K/mm3 (1.2-3.4); LYMPH % 27.3 % (20.0-51.0); MEAN CELL VOLUME 98 fl (80.0-100.0); MEAN CORPUSCULAR HGB CONC 28 g/dl (33.0-37.0); MEAN PLATELET VOLUME 9.8 fl (7.4-10.4); MONO # 0.7 K/mm3 (0.1-0.6); MONO % 12.3 % (1.7-9.3); PLATELET COUNT 438 K/mm3 (130-400); RED BLOOD COUNT 3.21 M/mm3 (4.10-5.30); REDCELL DISTRIBUTION WIDTH-CV 17.7 % (11.5-14.5)
[2022-02-25 06:48] LABS: CALCIUM 9.5 mg/dL (8.4-10.2); CREATININE, serum 0.97 mg/dL (0.57-1.11); MAGNESIUM 2.2 mg/dL (1.6-2.6); PHOSPHOROUS 3.4 mg/dL (2.3-4.7); POTASSIUM 4.1 mmol/L (3.5-4.5)
[2022-02-25 06:58] LABS: HEMATOCRIT 31.3 % (37.0-47.0); HEMOGLOBIN 8.9 g/dl (12.5-16.0); MEAN CORPUSCULAR HEMOGLOBIN 28 pg (27-31)
[2022-02-25 07:12] VITALS: BP 147/71; PULSE 70; TEMP 97.9
--- NOTE | 2022-02-25 07:40 | NUR ---
Patient alert and oriented. Very anxious, wanting to be discharged home today. Nervous about possible diagnosis from Dr. Charles from CSF fluid. Patient having difficulty with pain management, in report patient taking [place] Q4H around the clock. Pain generalized full body pain. Patient in chair already this morning. Non-compliant with o2, nasal canula on bed. Will speak with provider about referral to pain management outpatient. Patient HGB stable, EGD/colonoscopy outpatient prefered by patient.
--- NOTE | 2022-02-25 10:02 | NUR ---
PT TOLERATED WALK WITHOUT OXYGEN, PATIENT'S SATURATION DID NOT FALL BELOW92%
[2022-02-25 11:11] VITALS: BP 105/44; PULSE 70; TEMP 98
--- NOTE | 2022-02-25 12:27 | NUR ---
Patients established oxygen provider is [facility]. Per RT, ExOx completed and patient does not need continuous oxygen.
--- NOTE | 2022-02-25 12:31 | NUR ---
Patient discharge instructions given to both patient and spouse. Patient verbalized understanding need to hold Xarelto until after cleared by Cardiology and GI. Patient verbalized understanding the need to call Dr. Peace's office as soon as possible to schedule EGD and colonoscopy. Patient IV removed, and Tele disconected. SARAY Manrique wheeled patient to drop-off for discharge. No questions or concerns brought up by patient or spouse.
[2022-02-26 11:40] LABS: HSV 2 DNA PCR QUAL Not Detected (())
== END 2022-02-25 12:35 | disposition home or self-care (01) ==
LOC: COL.ER 21:18 → MEDICAL 02-20 00:44
PROVIDERS: Emergency Medicine; Internal Medicine; Nurse Practitioner Family; Physician Assistant; Psychiatry & Neurology Neurology; ADMIT Student in an Organized Health Care Education/Training Program
DX: R07.89 Other chest pain (principal); D50.9 Iron deficiency anemia, unspecified; R53.1 Weakness; K92.2 Gastrointestinal hemorrhage, unspecified; I25.10 Atherosclerotic heart disease of native coronary artery without angina pectoris; R00.0 Tachycardia, unspecified; E78.5 Hyperlipidemia, unspecified; I73.9 Peripheral vascular disease, unspecified; J43.9 Emphysema, unspecified; J84.10 Pulmonary fibrosis, unspecified; I11.0 Hypertensive heart disease with heart failure; I50.32 Chronic diastolic (congestive) heart failure; R41.3 Other amnesia; I48.20 Chronic atrial fibrillation, unspecified; I34.0 Nonrheumatic mitral (valve) insufficiency; Z79.01 Long term (current) use of anticoagulants; Z95.1 Presence of aortocoronary bypass graft; Z79.899 Other long term (current) drug therapy; Z86.718 Personal history of other venous thrombosis and embolism; Z20.822 Contact with and (suspected) exposure to COVID-19; Z86.19 Personal history of other infectious and parasitic diseases; Z87.891 Personal history of nicotine dependence
CPT/HCPCS: 99232-AI; A9270; C9113; G0378; J0696; J1644; J1756; J1940; J2270; J2405; J3010; J7040; P9016; Q9967

== ENCOUNTER 2022-03-19 13:19 | Emergency (ER) | payer MEDICARE, MEDICAID ==
[~2022-03-19] VITALS: Ht 177.8 cm; Wt 104.5 kg
[~2022-03-19 13:19] MED LIST changes: +COREG 25MG25 MG/TAB PO; +JARDIANCE10 PO; +NATURAL E400 IU PO; +PROAIR HFA0.09 MG/AC IH; +TRELEGY ELLIPT1 EACH IH; +VALIUM 5MG T5 MG/TAB PO; +VITAMIN D31000 I1 PO; +VTAMINC250TA PO; +XARELTO2.5 MG PO; +[UNRECOGNIZED DRUG - OTHER] PO
[2022-03-19 13:25] VITALS: BP 156/50; TEMP 98.3
[2022-03-19] MEDS ORDERED: AMOXICILLIN 8751 TAB PO (13:42)
[2022-03-19] MEDS ORDERED: CORTISPORIN OTI10 M2 OT (13:46)
[2022-03-19 14:20] LABS: BASO # 0.1 K/mm3 (0.0-0.2); BASO % 1.2 % (0.0-2.0); EOS # 0.2 K/mm3 (0.0-0.7); EOS % 2.4 % (0.0-4.0); GRAN # 5.1 K/mm3 (1.4-6.5); GRAN % 61.8 % (42.2-75.2); LYMPH % 24.2 % (20.0-51.0); MEAN CELL VOLUME 88 fl (80.0-100.0); MEAN CORPUSCULAR HGB CONC 30 g/dl (33.0-37.0); MEAN PLATELET VOLUME 10.1 fl (7.4-10.4); MONO # 0.8 K/mm3 (0.1-0.6); MONO % 10.2 % (1.7-9.3); PLATELET COUNT 310 K/mm3 (130-400); RED BLOOD COUNT 3.63 M/mm3 (4.10-5.30); REDCELL DISTRIBUTION WIDTH-CV 15.9 % (11.5-14.5)
[2022-03-19 14:22] LABS: HEMATOCRIT 31.9 % (37.0-47.0); HEMOGLOBIN 9.6 g/dl (12.5-16.0); MEAN CORPUSCULAR HEMOGLOBIN 26 pg (27-31)
[2022-03-19 14:45] VITALS: PULSE 73
== END 2022-03-19 14:45 | disposition home or self-care (01) ==
LOC: COL.ER 13:19
PROVIDERS: Physician Assistant
DX: H66.92 Otitis media, unspecified, left ear (principal); H72.92 Unspecified perforation of tympanic membrane, left ear; D64.9 Anemia, unspecified; Z87.891 Personal history of nicotine dependence; Z91.040 Latex allergy status

== ENCOUNTER 2022-03-21 01:23 | Emergency (ER) | payer MEDICARE, MEDICAID ==
[~2022-03-21] VITALS: Ht 177.8 cm; Wt 104.5 kg
[~2022-03-21 01:23] MED LIST changes: +CORTISPORIN OTI10 M2 OT
[2022-03-21 01:30] VITALS: TEMP 97.9
[2022-03-21] MEDS ORDERED: NORCO 325 MG-51 TAB PO (02:00)
[2022-03-21 02:22] VITALS: BP 125/76; PULSE 67
== END 2022-03-21 02:30 | disposition home or self-care (01) ==
LOC: COL.ER 01:23
DX: H66.92 Otitis media, unspecified, left ear (principal); Z91.040 Latex allergy status
CPT/HCPCS: J2270

== ENCOUNTER 2022-09-02 10:14 | Inpatient (IN) | payer MEDICARE, MEDICAID ==
[~2022-09-02] VITALS: Ht 117.8 cm; Wt 95.5 kg
[2022-09-02] VITALS (7 sets, daily range): BP systolic 124–148; BP diastolic 46–68; PULSE 61–64; TEMP 97.4–98.2
[~2022-09-02 10:14] MED LIST changes: +DOXYCYCLINE 10100 MG PO
[2022-09-02 10:43] LABS: BASO # 0.1 K/mm3 (0.0-0.2); BASO % 1.6 % (0.0-2.0); EOS # 0.2 K/mm3 (0.0-0.7); EOS % 3.3 % (0.0-4.0); GRAN # 3.6 K/mm3 (1.4-6.5); GRAN % 54.4 % (42.2-75.2); LYMPH % 29.9 % (20.0-51.0); MEAN CELL VOLUME 78 fl (80.0-100.0); MEAN CORPUSCULAR HGB CONC 26 g/dl (33.0-37.0); MEAN PLATELET VOLUME 10.1 fl (7.4-10.4); MONO # 0.7 K/mm3 (0.1-0.6); MONO % 10.5 % (1.7-9.3); PLATELET COUNT 366 K/mm3 (130-400); RED BLOOD COUNT 3.29 M/mm3 (4.10-5.30); REDCELL DISTRIBUTION WIDTH-CV 20.3 % (11.5-14.5)
[2022-09-02 10:47] LABS: HEMATOCRIT 25.8 % (37.0-47.0); MEAN CORPUSCULAR HEMOGLOBIN 20 pg (27-31)
[2022-09-02 10:49] LABS: ALBUMIN 3.4 gm/dL (3.4-4.8); BILIRUBIN,TOTAL 0.3 mg/dL (0.2-1.2); CALCIUM 9.2 mg/dL (8.4-10.2); CREATININE, serum 1.01 mg/dL (0.57-1.11); HEMOGLOBIN 6.7 g/dl (12.5-16.0); POTASSIUM 4.4 mmol/L (3.5-4.5); TOTAL PROTEIN 6.7 gm/dL (6.2-8.1)
[2022-09-02 10:55] LABS: TROPONIN-I 0.017 ng/mL (0.00-0.033)
[2022-09-02 11:05] LABS: INR 1.1 (0.8-3.0); PROTHROMBIN TIME 13.1 SECONDS (9.7-12.8)
[2022-09-02 11:08] LABS: PARTIAL THROMBOPLASTIN TIME 36.6 SECONDS (26.0-37.0)
[2022-09-02] MEDS ORDERED: 00186-0370-20 IH (13:09)
[2022-09-02] MEDS ORDERED: SEROQUEL 2525 MG/TAB PO (13:11)
[2022-09-02] MEDS ORDERED: XARELTO2.5 MG PO (13:11)
[2022-09-02] MEDS ORDERED: ZYRTEC 10MG10 MG PO (13:12)
[2022-09-02] MEDS ORDERED: JARDIANCE25 PO (13:13)
[2022-09-02] MEDS ORDERED: NEURONTIN100 MG/CAP PO (13:13)
[2022-09-02] MEDS ORDERED: LASIX 40MG TABL40 MG PO (13:14)
[2022-09-02] MEDS ORDERED: PYRIDIUM 100MG100 MG PO (13:16)
[2022-09-02] MEDS ORDERED: VALIUM 5MG T5 MG/TAB PO (14:49)
[2022-09-02 17:25] LABS: HEMATOCRIT 25.3 % (37.0-47.0); HEMOGLOBIN 6.6 g/dl (12.5-16.0)
[2022-09-03] VITALS (9 sets, daily range): BP systolic 114–148; BP diastolic 46–69; PULSE 59–81; TEMP 97.6–98.6
--- NOTE | 2022-09-03 02:15 | NUR ---
PATIENT ASSESSED. NIGHTLY MEDICATIONS GIVEN. MORPHINE ORDERED AND GIVEN 1X WELL [place]. CONTINUES ON RA. VSS. GIVEN 2 UNITS OF BLOOD, THE FIRST UNIT FINISHED AT 0050 WITH NO REACTIONS NOTED AND CURRENTLY THE SECOND UNIT IS RUNNING. GETTING R[place]A FOR CHEST PAIN. ABD ULTRASOUND SHOWED NO ASCITES OR MASSES. BLOOD PRESSURES HAVE BEEN STABLE. 2-3+ EDEMA OF BLE. SHE IS AOX4 BUT FORGETFUL AT TIMES. ON POTASSIUM PROTOCAL. CALL LIGHT IN REACH. BED IN LOWEST POSITION.
--- NOTE | 2022-09-03 05:31 | NUR ---
THE FIRST UNIT OF PRBC WAS ADMINISTERED WITH FAB WHEATLEY AT BEDSIDE FOR DUAL VERIFICATION. VITAL SIGNS STABLE. GIVEN OVER 3HRS. VITALS CHARTED. THE SYSTEM DID NOT ALLOW FOR THIS NURSE TO COMPLETE THE UNIT OF BLOOD AFTER FAB WHEATLEY AND THIS NURSE STARTED IT. THE SECOND UNIT OF PRBC WAS GIVEN AFTER THE FIRST UNIT AND ALLOWED THIS NURSE TO SCAN IT THROUGH.
[2022-09-03 06:56] LABS: BASO # 0.1 K/mm3 (0.0-0.2); BASO % 1.3 % (0.0-2.0); EOS # 0.2 K/mm3 (0.0-0.7); EOS % 2.7 % (0.0-4.0); GRAN # 3.8 K/mm3 (1.4-6.5); GRAN % 61.2 % (42.2-75.2); HEMATOCRIT 30.5 % (37.0-47.0); HEMOGLOBIN 8.5 g/dl (12.5-16.0); LYMPH # 1.4 K/mm3 (1.2-3.4); LYMPH % 22.5 % (20.0-51.0); MEAN CELL VOLUME 81 fl (80.0-100.0); MEAN CORPUSCULAR HEMOGLOBIN 23 pg (27-31); MEAN CORPUSCULAR HGB CONC 28 g/dl (33.0-37.0); MEAN PLATELET VOLUME 10.4 fl (7.4-10.4); MONO # 0.8 K/mm3 (0.1-0.6); MONO % 12.1 % (1.7-9.3); PLATELET COUNT 295 K/mm3 (130-400); RED BLOOD COUNT 3.76 M/mm3 (4.10-5.30); REDCELL DISTRIBUTION WIDTH-CV 19.6 % (11.5-14.5)
[2022-09-03 07:08] LABS: ALBUMIN 3.1 gm/dL (3.4-4.8); CALCIUM 8.8 mg/dL (8.4-10.2); PHOSPHOROUS 3.6 mg/dL (2.3-4.7); POTASSIUM 3.8 mmol/L (3.5-4.5)
--- NOTE | 2022-09-03 07:28 | NUR ---
PER NIGHT RN, 2 UNITS OF PRBC GIVEN TO PATIENT DURING ON LINE CSR. BLOOD STILL SHOWS 'ISSUED' FOR SECOND UNIT. PER NIGHT CHARGE THE 2ND UNIT WAS TRANSFUSED COMPLETLY USING THE PROPER PROTOCOL. DAY CHARGE AWARE.
--- NOTE | 2022-09-03 08:00 | NUR ---
Pt alert and awake sitting in chair. Telemetry on HR regular. Breath sounds diminished bilateral bases. No SOA noted @ rest. Pt reports lower lumbar back discomfort. Primary nurse notified. L lower leg 2-3+ edema. Rt lower leg 2+ edema. CMS cks WNL to BLE. INT to Rt hand intact no redness.
--- NOTE | 2022-09-03 08:14 | NUR ---
DR CAMPOS RE ORDERED PATIETN XARELTO TO BEGIN. INFORMED HIM PATIENTS SUPPOSED TO HAVE AN OUTPATIENT COLONOSCOPY AND ENDOSCOPY AND PER DR DING NOTE PATIENT TO BE OFF XARELTO 2-3 DAYS FOR THAT.HOWEVER UNKNOWN DATE FOR PROVEDURE. PER DR CAMPOS HOLD XARELTO, AM DOSE NOT GIVEN, HAVE NOT SEEN HOLD ORDER YET.
--- NOTE | 2022-09-03 10:44 | NUR ---
SW met with patient to complete intake and discuss discharge plan. Patient reports that she lives at home with her Gunner ([phone]) in [place]. Patient reports that she is somewhat independent with his ADL's but Gunner has to assist with some cares such as showering. Patient utilizes home oxygen PRN that is managed through [facility]. Patient Does not utilize any home DME to assist with ambulation. PCP is and she utilizes [facility] for prescriptions. Patient reports that she does have a DPOA-HC and her daughter Cari Calhoun has the paperwork. Patient is planning on returning home once medically ready. Discharge plan: Home with spouse
--- NOTE | 2022-09-03 11:20 | NUR ---
Pt given K-pad for lower back discomfort. Pt resting in bed, at side. No changes w/ assessment.
[2022-09-03 16:32] LABS: COLLECTION METHOD CLEAN CATCH
[2022-09-03 16:57] LABS: MUCOUS Present (NOT PRESENT); SQUAMOUS EPITHELIAL None Seen /hpf (0-10); URINE BACTERIA Rare /hpf (NONE SEEN); URINE WBC >50 /hpf (0-2)
[2022-09-03 17:03] LABS: URINE APPEARANCE Cloudy (CLEAR/HAZY); URINE BLOOD TRACE-INTACT (NEGATIVE); URINE COLOR Yellow (YELLOW); URINE GLUCOSE Negative (NEGATIVE); URINE KETONE Negative (NEGATIVE); URINE NITRATE Positive (NEGATIVE); URINE PROTEIN(semi-quant) Negative (NEGATIVE); URINE UROBILINOGEN 0.2 (NEGATIVE)
--- NOTE | 2022-09-03 17:30 | NUR ---
PATIENT AWAKE AND ALERT, SHE DENIES ANY NEEDS OR COMPLAINTS AT THIS TIME. 2 FAMILY MEMBERS AT BEDSIDE. CALL LIGHT WITH IN REACH.
[2022-09-03 18:09] LABS: HEMATOCRIT 29.7 % (37.0-47.0); HEMOGLOBIN 8.5 g/dl (12.5-16.0)
--- NOTE | 2022-09-03 19:36 | NUR ---
System shows that there is a unit of PRBCs issued. Upon review, FAB Estrada and FAB Parada double nurse verified the unit, however the system would not allow them to scan it through. Verification was approved, and unit was given. No other concern at this time.
[2022-09-04 03:30] VITALS: BP 115/56; PULSE 58; TEMP 97.4
[2022-09-04 06:50] LABS: BASO # 0.1 K/mm3 (0.0-0.2); BASO % 1.3 % (0.0-2.0); EOS # 0.2 K/mm3 (0.0-0.7); EOS % 3.5 % (0.0-4.0); GRAN # 2.7 K/mm3 (1.4-6.5); GRAN % 50.8 % (42.2-75.2); LYMPH # 1.6 K/mm3 (1.2-3.4); LYMPH % 29.9 % (20.0-51.0); MEAN CELL VOLUME 78 fl (80.0-100.0); MEAN CORPUSCULAR HGB CONC 28 g/dl (33.0-37.0); MONO # 0.8 K/mm3 (0.1-0.6); MONO % 14.3 % (1.7-9.3); PLATELET COUNT 285 K/mm3 (130-400); RED BLOOD COUNT 3.83 M/mm3 (4.10-5.30)
[2022-09-04 06:56] LABS: HEMATOCRIT 29.9 % (37.0-47.0); HEMOGLOBIN 8.5 g/dl (12.5-16.0); MEAN CORPUSCULAR HEMOGLOBIN 22 pg (27-31)
[2022-09-04 07:15] VITALS: BP 141/55; PULSE 70; TEMP 97.8
[2022-09-04 07:24] LABS: ALBUMIN 3.1 gm/dL (3.4-4.8); CALCIUM 8.9 mg/dL (8.4-10.2); CREATININE, serum 1.08 mg/dL (0.57-1.11); MAGNESIUM 2.1 mg/dL (1.6-2.6); POTASSIUM 3.9 mmol/L (3.5-4.5)
[2022-09-04] MEDS ORDERED: RANEXA 500MG T500 MG PO (08:12)
[2022-09-04] MEDS ORDERED: MIRALAX PA17 GM/Dose PO (08:20)
[2022-09-04] MEDS ORDERED: FERROUSAL325 MG PO (08:23)
--- NOTE | 2022-09-04 08:51 | NUR ---
PATIENT STATED SHE WISHES ASKING FOR PAIN MEDICATION "WASNT SUCH A HOOPLA." WHEN ASKING WHAT SHE MEANT, SHE STATED IT IS NOT HER FAULT "WHAT THE KIDS ARE DOING." UNKNOWN WHAT PATIENT IS REFERING TO. ANY TIME YAMILE HAS ASKED FOR MEDICATION FOR HER "OLD KNEES" SHE WAS GIVEN IT WITH NO ISSUES. CALL LIGHT WITHIN REACH.
--- NOTE | 2022-09-04 10:43 | NUR ---
Initial visit; Patient thanked Dry Plasterer Helper for looking in on her and offering a special Darwin and keeping her in Dry Plasterer Helper's prayers.
--- NOTE | 2022-09-04 11:40 | NUR ---
PATIENT IV DISCONTINUED. PATIENT GIVEN DISCHARGE INSTRUCTINOS AND EDUCATION. ALL QUESTIOSN ANSWERED. PATIENT VERBAIZED UNDERSTANDING OF ALL FOLLOWUP APTS.
--- NOTE | 2022-09-04 12:00 | NUR ---
PATIENT TAKEN VIA WHEELCHAIR BY PCT TO PATIENT ENTRANCE WHERE SHE LEFT IN STABLE ONDITION WITH HER .
== END 2022-09-04 12:00 | disposition home or self-care (01) | DRG 811 ==
LOC: COL.ER 10:14 → MEDICAL 11:41
PROVIDERS: Emergency Medicine; Nurse Practitioner; Nurse Practitioner Family; ADMIT Internal Medicine
PROC: 30233N1 Transfusion of Nonautologous Red Blood Cells into Peripheral Vein, Percutaneous Approach (ICD-10-PCS; principal; 2022-09-02)
DX: D62 Acute posthemorrhagic anemia (principal); J96.01 Acute respiratory failure with hypoxia; I50.22 Chronic systolic (congestive) heart failure; I25.10 Atherosclerotic heart disease of native coronary artery without angina pectoris; E78.5 Hyperlipidemia, unspecified; J43.9 Emphysema, unspecified; J84.10 Pulmonary fibrosis, unspecified; Z66 Do not resuscitate; B19.20 Unspecified viral hepatitis C without hepatic coma; F31.9 Bipolar disorder, unspecified; F41.9 Anxiety disorder, unspecified; I11.0 Hypertensive heart disease with heart failure; I73.9 Peripheral vascular disease, unspecified; I34.0 Nonrheumatic mitral (valve) insufficiency; I48.0 Paroxysmal atrial fibrillation; K59.09 Other constipation; K21.9 Gastro-esophageal reflux disease without esophagitis; Z96.652 Presence of left artificial knee joint; G40.909 Epilepsy, unspecified, not intractable, without status epilepticus; D50.9 Iron deficiency anemia, unspecified; Z79.01 Long term (current) use of anticoagulants; Z86.718 Personal history of other venous thrombosis and embolism; Z95.1 Presence of aortocoronary bypass graft; Z86.711 Personal history of pulmonary embolism; Z86.16 Personal history of COVID-19; I25.2 Old myocardial infarction; Z88.8 Allergy status to other drugs, medicaments and biological substances; Z91.040 Latex allergy status; Z90.710 Acquired absence of both cervix and uterus; Z90.49 Acquired absence of other specified parts of digestive tract; Z90.89 Acquired absence of other organs; Z87.891 Personal history of nicotine dependence
CPT/HCPCS: C9113; J1756; J1940; J2270; J2405; P9016; Q9967

== ENCOUNTER 2022-10-23 08:11 | Inpatient (IN) | payer MEDICARE, MEDICAID ==
[~2022-10-23] VITALS: Ht 175.3 cm; Wt 107.9 kg
[~2022-10-23 08:11] MED LIST changes: +00186-0370-20 IH; +ELIQUIS 2.5 PO; +FERROUSAL325 MG PO; +JARDIANCE25 PO; +NEURONTIN100 MG/CAP PO; +PACERONE200 MG PO; +PROTONIX 40MG T40 MG PO; +SEROQUEL 2525 MG/TAB PO; +ZYRTEC 10MG10 MG PO
[2022-10-23 08:47] LABS: BASO # 0.1 K/mm3 (0.0-0.2); BASO % 0.8 % (0.0-2.0); EOS # 0.2 K/mm3 (0.0-0.7); EOS % 2.1 % (0.0-4.0); GRAN # 5.3 K/mm3 (1.4-6.5); GRAN % 68.6 % (42.2-75.2); LYMPH # 1.4 K/mm3 (1.2-3.4); LYMPH % 17.7 % (20.0-51.0); MEAN CELL VOLUME 87 fl (80.0-100.0); MEAN CORPUSCULAR HGB CONC 28 g/dl (33.0-37.0); MEAN PLATELET VOLUME 9.8 fl (7.4-10.4); MONO # 0.8 K/mm3 (0.1-0.6); MONO % 10.5 % (1.7-9.3); PLATELET COUNT 266 K/mm3 (130-400); RED BLOOD COUNT 3.75 M/mm3 (4.10-5.30); REDCELL DISTRIBUTION WIDTH-CV 22.5 % (11.5-14.5)
[2022-10-23 08:49] LABS: INR 1.1 (0.8-3.0); PROTHROMBIN TIME 12.2 SECONDS (9.7-12.8)
[2022-10-23 09:01] LABS: ALBUMIN 3.2 gm/dL (3.4-4.8); BILIRUBIN,TOTAL 0.2 mg/dL (0.2-1.2); CALCIUM 9.2 mg/dL (8.4-10.2); CREATININE, serum 1.28 mg/dL (0.57-1.11); HEMATOCRIT 32.7 % (37.0-47.0); HEMOGLOBIN 9.3 g/dl (12.5-16.0); MEAN CORPUSCULAR HEMOGLOBIN 25 pg (27-31); POTASSIUM 4.3 mmol/L (3.5-4.5); TOTAL PROTEIN 6.8 gm/dL (6.2-8.1)
[2022-10-23] MEDS ORDERED: NEURONTIN300 MG/CAP PO (12:12)
--- NOTE | 2022-10-23 12:20 | NUR ---
arrived on unit from ED per stretcher at 1155, assisted over into bed, cries out in, pain when moved and after resting still states pain is 9/10, admission assessment and physical completed, splint to left leg, toes are warm and nail bed pink, pedal pulse is 1+, VIGNESH hose and SCD placed on right leg, has purewick in place and connected to suction, placed in yellow gown, at bedside and other family arrives,
[2022-10-23 12:30] VITALS: BP 162/58; PULSE 62; TEMP 97.6
--- NOTE | 2022-10-23 12:40 | NUR ---
provided water per her request and instructed on ordering something to eat
--- NOTE | 2022-10-23 12:50 | NUR ---
Tonia Bullock notified of consult
--- NOTE | 2022-10-23 13:20 | NUR ---
resting in bed talking on phone and visiting with family at bedside, c/o pain and medicated with morphine 2mg slow IV
--- NOTE | 2022-10-23 13:25 | NUR ---
cardiopulmonary notified of order for EKG
--- NOTE | 2022-10-23 13:49 | NUR ---
cardiopulmonary in and EKG completed, sitting up in bed eating lunch
--- NOTE | 2022-10-23 14:10 | NUR ---
new INT started by FAB Carranza in left upper arm with 20g
--- NOTE | 2022-10-23 14:30 | NUR ---
KARLA Gong in to see patient
--- NOTE | 2022-10-23 14:45 | NUR ---
in bed and appears to be sleeping, resp quiet and easy
[2022-10-23 16:54] VITALS: BP 111/54; PULSE 67; TEMP 98.4
--- NOTE | 2022-10-23 17:25 | NUR ---
continues to sleep, resp quiet and easy
--- NOTE | 2022-10-23 17:44 | NUR ---
sitting up in bed eating supper
--- NOTE | 2022-10-23 18:53 | NUR ---
bedside shift report given to FAB Adhikari, LUCIANO Abbott notified of the need for home meds to be restarted
[2022-10-23 19:14] VITALS: BP 133/50; PULSE 64; TEMP 97.5
--- NOTE | 2022-10-23 20:00 | NUR ---
pt resting in bed. meds given and assessment complete. reports pain a 03/22, morphine given per emar. leg elevated on pillow for comfort. splint in place. heparin gtt started at 19.5 gtt/min. pt on 2l nasal cannula. vss and tele in place. fall precautions implemented. purewick in place. IV to right hand and left upper arm. no needs at this time. call light in reach.
[2022-10-23 20:16] LABS: PARTIAL THROMBOPLASTIN TIME 35.7 SECONDS (26.0-37.0)
[2022-10-24] VITALS (8 sets, daily range): BP systolic 86–143; BP diastolic 45–81; PULSE 60–106; TEMP 97.8–99.4
--- NOTE | 2022-10-24 02:27 | NUR ---
ptt 37.9. increased hep gtt to 21ml/hr per protocol. order to redraw ptt in 6 hours.
[2022-10-24 08:12] LABS: BASO % 0.5 % (0.0-2.0); EOS # 0.1 K/mm3 (0.0-0.7); EOS % 1.7 % (0.0-4.0); GRAN # 5.1 K/mm3 (1.4-6.5); GRAN % 66.2 % (42.2-75.2); LYMPH # 1.5 K/mm3 (1.2-3.4); LYMPH % 19.9 % (20.0-51.0); MEAN CELL VOLUME 85 fl (80.0-100.0); MEAN CORPUSCULAR HGB CONC 28 g/dl (33.0-37.0); MEAN PLATELET VOLUME 9.7 fl (7.4-10.4); MONO # 0.9 K/mm3 (0.1-0.6); MONO % 11.4 % (1.7-9.3); PLATELET COUNT 235 K/mm3 (130-400); RED BLOOD COUNT 3.44 M/mm3 (4.10-5.30); REDCELL DISTRIBUTION WIDTH-CV 22.2 % (11.5-14.5)
[2022-10-24 08:19] LABS: HEMATOCRIT 29.2 % (37.0-47.0); HEMOGLOBIN 8.3 g/dl (12.5-16.0); MEAN CORPUSCULAR HEMOGLOBIN 24 pg (27-31)
[2022-10-24 08:35] LABS: CALCIUM 8.8 mg/dL (8.4-10.2); CREATININE, serum 1.08 mg/dL (0.57-1.11); MAGNESIUM 1.9 mg/dL (1.6-2.6); PHOSPHOROUS 2.9 mg/dL (2.3-4.7); POTASSIUM 4.1 mmol/L (3.5-4.5)
--- NOTE | 2022-10-24 08:41 | NUR ---
NEIL met with the patient to discuss discharge plan. The patient lives in [place] with her , Gunner (ph#[phone]). She has a cane. The patient's PCP is Dr. Mk Carter and she obtains her medications from [facility] The patient provides that she was going to do cardiac rehab, but has not been able to do it yet. The patient does not have a DPOA-HC in EMR, but she states that she believes that she has one completed and that it designates her . The patient has a hip fracture and is to tentatively have surgery Thursday or Thursday. SW discussed post-acute rehab upon discharge and provided her with Medicare.gov's list of SNFs. The patient reports that she is in a lot of pain right now and cannot really think about this right now. She is agreeable for NEIL to go ahead and send referral to the local facilities. NEIL attempted to contact and review the above with her . NEIL left him a voicemail. NEIL contacted and faxed a referral to [facility], [facility], [facility], and [facility]. Awaiting screens. *Discharge plan: SNF. Referrals out*
--- NOTE | 2022-10-24 08:46 | NUR ---
0836 16fr machado inserted with 10cc balloon inflated using sterile technique per doctors orders. Patient tolerated procedure well. Primary nurse assisted with holding legs.
[2022-10-24 08:57] LABS: COLLECTION METHOD CLEAN CATCH
--- NOTE | 2022-10-24 09:00 | NUR ---
Patient complains of full bladder. Blount inserted. Orders obtained, UA sent to lab. Started with PO pain medications with her general diet. denies nausea.
[2022-10-24 09:07] LABS: AMORPHOUS CRYSTAL Present (NOT PRESENT); MUCOUS Present (NOT PRESENT); SQUAMOUS EPITHELIAL 0-2 /hpf (0-10); URINE BACTERIA Moderate /hpf (NONE SEEN); URINE RBC 0-2 /hpf (0-2); URINE WBC 20-50 /hpf (0-2)
[2022-10-24 09:12] LABS: URINE APPEARANCE Hazy (CLEAR/HAZY); URINE BLOOD Negative (NEGATIVE); URINE COLOR Yellow (YELLOW); URINE GLUCOSE 2+ (NEGATIVE); URINE KETONE Negative (NEGATIVE); URINE NITRATE Negative (NEGATIVE); URINE PROTEIN(semi-quant) Negative (NEGATIVE); URINE UROBILINOGEN 0.2 E.U/dL (0.2-1.0)
--- NOTE | 2022-10-24 10:57 | NUR ---
Taylor, at [facility], reports that they will just need to get updates following her surgery to make sure she is skillable and not non-weight bearing. Stephanie, at [facility], states that they can probably accept the patient. She states that they did run the patient's insurance and she has Medicare [employer]. Stephanie states that they are in-network with Medicare [employer] now. She states that they will follow up with social work on Thursday on patient's status. NEIL notified financial counseling and admissions of the patient having Medicare [employer].
--- NOTE | 2022-10-24 17:44 | NUR ---
Patient resting in bed. Repositioning for comfort as needed. Multiple pillows used. Air matress applied to bed. Splint to LLE. Cms intact. Heparin drip via picc line. Blount to DD with adequate output.
--- NOTE | 2022-10-24 19:50 | NUR ---
Patient assessed at this time, with PICC line infusing well to right upper arm, splint to left leg CDI, remains on oxygen at 3LPM via nasal prong, complained of pain on her left leg, tylenol given, denies further needs, call light and personal items within reach, will continue to monitor.
[2022-10-25] VITALS (7 sets, daily range): BP systolic 107–140; BP diastolic 49–65; PULSE 62–72; TEMP 97.8–98.9
[2022-10-25 07:02] LABS: BASO # 0.1 K/mm3 (0.0-0.2); BASO % 0.8 % (0.0-2.0); EOS # 0.2 K/mm3 (0.0-0.7); EOS % 2.4 % (0.0-4.0); GRAN # 3.8 K/mm3 (1.4-6.5); LYMPH # 1.6 K/mm3 (1.2-3.4); LYMPH % 23.4 % (20.0-51.0); MEAN CELL VOLUME 84 fl (80.0-100.0); MEAN CORPUSCULAR HGB CONC 29 g/dl (33.0-37.0); MEAN PLATELET VOLUME 10.4 fl (7.4-10.4); MONO % 15.1 % (1.7-9.3); PLATELET COUNT 238 K/mm3 (130-400); RED BLOOD COUNT 3.17 M/mm3 (4.10-5.30); REDCELL DISTRIBUTION WIDTH-CV 22.1 % (11.5-14.5)
[2022-10-25 07:09] LABS: HEMATOCRIT 26.7 % (37.0-47.0); HEMOGLOBIN 7.8 g/dl (12.5-16.0); MEAN CORPUSCULAR HEMOGLOBIN 25 pg (27-31)
[2022-10-25 07:17] LABS: ALBUMIN 2.7 gm/dL (3.4-4.8); CALCIUM 8.6 mg/dL (8.4-10.2); CREATININE, serum 1.04 mg/dL (0.57-1.11); PHOSPHOROUS 3.9 mg/dL (2.3-4.7); POTASSIUM 4.1 mmol/L (3.5-4.5)
--- NOTE | 2022-10-25 08:18 | NUR ---
Patient resting in bed this am, ortho rounded. plan of care reviewed. Patient emotional and tearful this am. Kleenexes provided. Patient upset to learn she will be non weightbearing for 6 weeks. Patient provided with emotional support. PRN valium also given for anxiety per her request. Repostioned in bed for breakfast. Po intake encouraged. Blount to DD with adequate urine output. LLE CMS intact, splint in place. Picc to RUE with heparin drip as ordered. Did discuss PTT drawn this am and will be redrawn at 0900 as ordered to follow protocol, 0600 results too early. Will monitor patient.
--- NOTE | 2022-10-25 10:12 | NUR ---
Patient continues to be very emotional. Pain rating a 10/10. I spoke to , morphine will be given. Adjustments made to Heparin drip per protcol. Will monitor closely.
--- NOTE | 2022-10-25 11:44 | NUR ---
Patient spouse at bedside. Pain better managed. SHe is in better spirits. Will monitor
--- NOTE | 2022-10-25 14:37 | NUR ---
Patient in good spirits. Grandughters visited. Patient provided with bedside table with mirror, patient able to put on make up, brightening her mood. Patients Jewlery (necklace,bracelets,rings) removed & placed in denture cup and given to her spouse, he is taking home. She did well with lunch. Will continue to monitor
--- NOTE | 2022-10-25 17:08 | NUR ---
patient Ptt critically high. Heparin drip stopped & will recheck level in 2 hours per protocol.
--- NOTE | 2022-10-25 18:48 | NUR ---
Patient sitting up eating dinner tray, denies needs at this time
--- NOTE | 2022-10-25 21:09 | NUR ---
Patient assessed at this time, see shift assessment, rates her pain at 7/10, oxycodone and scheduled tylenol given, PICC to right upper arm infusing well, splint to left leg CDI, kept elevated, repositioned patient in bed, denies further needs, call light and personal items within reach, will continue to monitor.
--- NOTE | 2022-10-26 02:06 | NUR ---
Patient called out, complaining of pain and her left leg hanging off the bed, some pieces of the splint came off and anni wrap was loosen up and denied that he didn't try to pull it. Repositioned patient's left leg to bed, elevated with pillow and readjust the anni wrap, oxycodone was given as well for pain, patient noted to be confused at this time, will continue to monitor.
[2022-10-26 03:08] LABS: BASO # 0.1 K/mm3 (0.0-0.2); BASO % 0.7 % (0.0-2.0); EOS # 0.2 K/mm3 (0.0-0.7); EOS % 2.9 % (0.0-4.0); GRAN # 4.6 K/mm3 (1.4-6.5); GRAN % 63.1 % (42.2-75.2); LYMPH # 1.6 K/mm3 (1.2-3.4); MEAN CELL VOLUME 84 fl (80.0-100.0); MEAN CORPUSCULAR HGB CONC 30 g/dl (33.0-37.0); MEAN PLATELET VOLUME 9.6 fl (7.4-10.4); MONO # 0.8 K/mm3 (0.1-0.6); MONO % 11.2 % (1.7-9.3); PLATELET COUNT 259 K/mm3 (130-400); RED BLOOD COUNT 3.17 M/mm3 (4.10-5.30); REDCELL DISTRIBUTION WIDTH-CV 21.7 % (11.5-14.5)
[2022-10-26 03:09] LABS: HEMATOCRIT 26.6 % (37.0-47.0); HEMOGLOBIN 7.9 g/dl (12.5-16.0); MEAN CORPUSCULAR HEMOGLOBIN 25 pg (27-31)
[2022-10-26 03:32] LABS: ALBUMIN 2.7 gm/dL (3.4-4.8); CREATININE, serum 1.18 mg/dL (0.57-1.11); MAGNESIUM 1.9 mg/dL (1.6-2.6); PHOSPHOROUS 4.2 mg/dL (2.3-4.7); POTASSIUM 4.2 mmol/L (3.5-4.5)
[2022-10-26 03:56] VITALS: BP 132/64; PULSE 81; TEMP 97.7
--- NOTE | 2022-10-26 06:14 | NUR ---
Patient verbalized pain is better than it was, will continue to monitor.
[2022-10-26 07:28] VITALS: BP 118/60; PULSE 71; TEMP 99
--- NOTE | 2022-10-26 09:00 | NUR ---
Pt doing okay this morning. Some pain complaints, but states she is okay. Pt just received her breakfast. Left leg with splint in place. Rewrapped anni around her picc line. Call light within reach
--- NOTE | 2022-10-26 11:00 | NUR ---
Pt has been on bed gusman for a short while. When giving her morning medications, discussed her bowel movements and she stated she is having bowel movements with no issues and does not have a need for an laxatives. She stated that she would be worried that would cause her to have too many accidents. I knew she was on bed gumsan this morning, did not know results. Went in as pt stated that she was not able to go. Pt appeared impacted. Was able to digitaly remove some of the stool. Will discuss getting suppository for her with physician. Did give her morning medications as ordered.
[2022-10-26 11:22] VITALS: BP 119/41; PULSE 67; TEMP 98.4
--- NOTE | 2022-10-26 14:17 | NUR ---
Pt has spouse and daughters that have remained with her. Pt tearful and keeps stating that she is scared for surgery. Family continues to talk with her about it. Pt does seem drowsy. One of her daughters continually asks me to give her pain medication and that she needs a pain pump. Educating her on having to not give too much pain medication and that while at rest, pt appears comfortable.
[2022-10-26 15:46] VITALS: BP 148/62; PULSE 81; TEMP 98.3
--- NOTE | 2022-10-26 17:08 | NUR ---
Pt has only had some amount of bowel movement following the enema. Pt appears to be more comfortable pain mas and is not as tearful. Spouse remains at bedside
[2022-10-26 20:31] VITALS: BP 117/59; PULSE 71; TEMP 98
--- NOTE | 2022-10-26 22:37 | NUR ---
Patient assessed around 2000. Alert and oriented, with intermittent confusion. Denies having pain and discomfort. PICC to RUE. Continues on Heparin drip per orders. Decreased rate to 2600 units/hr per protocol, recheck at 0350. Heparin drip to be placed on hold at 0500 of surger to left leg tomorrow. Patient aware of surgery and that she is NPO after midnight. Voices no questions, needs, or concerns at this time. In bed with call light within reach. High fall risk precautions in place. Bed alarm on.
[2022-10-27] VITALS (18 sets, daily range): BP systolic 91–150; BP diastolic 30–64; PULSE 57–97; TEMP 97.6–99.9
[2022-10-27 04:09] LABS: BASO # 0.1 K/mm3 (0.0-0.2); BASO % 0.6 % (0.0-2.0); EOS # 0.1 K/mm3 (0.0-0.7); EOS % 1.4 % (0.0-4.0); GRAN # 6.6 K/mm3 (1.4-6.5); GRAN % 70.7 % (42.2-75.2); LYMPH # 1.6 K/mm3 (1.2-3.4); LYMPH % 16.9 % (20.0-51.0); MEAN CELL VOLUME 83 fl (80.0-100.0); MEAN CORPUSCULAR HGB CONC 30 g/dl (33.0-37.0); MEAN PLATELET VOLUME 9.6 fl (7.4-10.4); MONO # 0.9 K/mm3 (0.1-0.6); PLATELET COUNT 252 K/mm3 (130-400); RED BLOOD COUNT 3.11 M/mm3 (4.10-5.30); REDCELL DISTRIBUTION WIDTH-CV 21.2 % (11.5-14.5)
[2022-10-27 04:14] LABS: HEMATOCRIT 25.7 % (37.0-47.0); HEMOGLOBIN 7.7 g/dl (12.5-16.0); MEAN CORPUSCULAR HEMOGLOBIN 25 pg (27-31)
[2022-10-27 04:26] LABS: ALBUMIN 2.6 gm/dL (3.4-4.8); CALCIUM 8.9 mg/dL (8.4-10.2); CREATININE, serum 0.96 mg/dL (0.57-1.11); MAGNESIUM 1.9 mg/dL (1.6-2.6); PHOSPHOROUS 3.2 mg/dL (2.3-4.7); POTASSIUM 4.1 mmol/L (3.5-4.5)
--- NOTE | 2022-10-27 05:24 | NUR ---
Patient received PRN Roxicodone as requested for pain. Stopped Heparin drip at 0500 per orders. Has used bedpan to try and have BMs throughout the night, but only small amounts. Has been NPO since midnight, but did take medications with sips of water. Voices no further questions, needs, or concerns at this time. In bed with call light within reach. Bed alarm on.
--- NOTE | 2022-10-27 10:52 | NUR ---
Patient resting in bed. Her supportive family at bedside. Hospitalist has rounded. Patient main complaint is of her bottom hurting. Hemmrroids giving her troubles. Tucks pads orders per orders. LLE pain present. Morphine for leg pain, LLE elevated & repositioned. Blood drawn for blood transfusion with await for it to be ready. Will monitor.
--- NOTE | 2022-10-27 12:16 | NUR ---
Patient resting in bed. Blood transfusion started per orders. Blood policy followed. Infusing at 60ml/hr via Picc in RUE. Vss on O2. Verified with Tere SANON. This nurse to remain at bedside & signs & symptoms of reaction reviewed with patient. She has had blood transfusion before
--- NOTE | 2022-10-27 14:30 | NUR ---
Patient Blood transfusion completed. Patient to the OR with Toney whaley.
--- NOTE | 2022-10-27 16:29 | NUR ---
Auto Design Detailer submitted insurance authorization to [facility] [employer] [facility]. Hyacinth at [facility] called, reporting the need for physical therapy and stabilization notes after surgery. NEIL will send when available. NEIL contacted Douglas at [facility] to update pn Patient Status. Douglas clinically accepts pending auth. NEIL was contacted by Sonia Mayorga, Radha accepts pending auth. [facility]
--- NOTE | 2022-10-27 19:51 | NUR ---
Patient has returned post op. Slightly disoriented & drowsy. Pain manged at this time. Denies nausea. Tolerated her dinner tray. LLE numbness still present. Dressing & immobilizer intact. Her supportive family has gone home for the evening. REport to Ro to resume cares
--- NOTE | 2022-10-27 21:15 | NUR ---
PT KEEPS TAKING O2 AND BP AND SAT OX OFF. PT SL CONFUSED AND DROWSY. DRSG TO RLE CDI. IMMOBILIZER IN PLACE. TOES WTT. HYPOTENTIVE. WILL CONTINUE TO MONITOR. O2 UP TO 4L D/T PT DESAT POST TAKING O2 OFF. CALL LIGHT IN REACH. BED ALARM SET.
--- NOTE | 2022-10-27 23:49 | NUR ---
PT STILL VERY SLEEPY. 02 4L NC. PT CONTINUES TAKING OFF O2 SAT OFF. PT ALSO TAKES O2 OFF AT TIMES. O2 DOWN TO 73% WHEN SHE TOOK OFF EARLIER. RECOVERED O2 SAT 94%.
--- NOTE | 2022-10-28 01:20 | NUR ---
DULCOLAX SUPP GIVEN FOR CONSTIPATION. STOOL IN RECTUM PARTIALLY HARD WITH SOFT STOOL. PLACED ON BEDPAN.
--- NOTE | 2022-10-28 01:45 | NUR ---
PT HAVING LLE PAIN LEVEL 7/10. SEE MAR FOR DILAUDID GIVEN.
--- NOTE | 2022-10-28 02:44 | NUR ---
NO RESULTS FROM SUPP. GAVE SS ENEMA. IMMEDIATE RETURN OF BROWN LIQUID. PT ON BEDPAN.
--- NOTE | 2022-10-28 03:04 | NUR ---
PT HAD SM HARD STOOL. STILL STOOL IN RECTUM. DILAUDID GIVEN FOR LLE AND RECTUM PAIN. RECTAL AREA RED. TUCKS/ BARRIR OINTMENT APPLIED.
[2022-10-28 03:14] VITALS: BP 136/53; PULSE 67; TEMP 98.1
[2022-10-28 06:49] LABS: BASO % 0.2 % (0.0-2.0); GRAN # 13.6 K/mm3 (1.4-6.5); GRAN % 87.7 % (42.2-75.2); LYMPH # 0.8 K/mm3 (1.2-3.4); LYMPH % 5.2 % (20.0-51.0); MEAN CELL VOLUME 84 fl (80.0-100.0); MEAN CORPUSCULAR HGB CONC 30 g/dl (33.0-37.0); MEAN PLATELET VOLUME 10.1 fl (7.4-10.4); MONO % 6.3 % (1.7-9.3); PLATELET COUNT 279 K/mm3 (130-400)
[2022-10-28 06:51] LABS: HEMATOCRIT 26.9 % (37.0-47.0); HEMOGLOBIN 8.1 g/dl (12.5-16.0); MEAN CORPUSCULAR HEMOGLOBIN 25 pg (27-31)
[2022-10-28 07:11] LABS: ALBUMIN 2.5 gm/dL (3.4-4.8); CALCIUM 8.9 mg/dL (8.4-10.2); CREATININE, serum 1.05 mg/dL (0.57-1.11); MAGNESIUM 2.1 mg/dL (1.6-2.6); PHOSPHOROUS 3.6 mg/dL (2.3-4.7); POTASSIUM 4.4 mmol/L (3.5-4.5)
--- NOTE | 2022-10-28 07:30 | NUR ---
pt resting in bed. reports pain a 10, dilauded given per emar. meds given and assessment complete. picc to vik w good flushing and blood return. machado to roseann w yellow urint output. denies needs at this time. call light in reach.
[2022-10-28 08:04] VITALS: BP 153/57; PULSE 71; TEMP 98.1
--- NOTE | 2022-10-28 10:45 | NUR ---
0955: Neil received phone call from Hyacinth at [facility] that this is the 3rd and final phone call for clinical updates and therapy notes. Per Hyacinth, she is needing to have this documentation within the hour before having to close out the current authorization. NEIL reached out to PHYLICIA Solorzano and ERIKA Luque to inform of the above and request to see the patient as their next patient with the above update. 1039: Clinical documentation faxed to Hyacinth with notification that we are still waiting on OT.
[2022-10-28 12:00] VITALS: BP 107/35; PULSE 67; TEMP 98.3
[2022-10-28] MEDS ORDERED: DOXYCYCLINE 10100 MG PO (13:55)
[2022-10-28] MEDS ORDERED: ROXICODONE 55 MG/TAB PO (13:59)
--- NOTE | 2022-10-28 14:21 | NUR ---
jeannette discontinued by this RN. Joellen H[facility]INS[facility] to take our PICC to [facility]. pt discharging to [facility].
--- NOTE | 2022-10-28 14:27 | NUR ---
Patients discharge orders sent to Mackay from [facility].
--- NOTE | 2022-10-28 14:38 | NUR ---
Inspector Chief met with PAtient and to discuss discharge planning. NEIL provided [email or web address] list of home health providers servicing KRANTHI Lazo. Patient [facility] services. NEIL faxed [facility] referral documents to fax provided by Amadeo F:[phone] . On follow-up call, [facility] reports they did not recieve it and requested it be sent to fax number [phone]. NEIL faxed the documents to secondary number. NEIL contacted Jeanine Corey in reference to request for IV antibiotic home services. Jeanine reported not recieving referral and requested documents faxed to [phone]. NEIL faxed documents to secondary number. NEIL was contacted by Jeanine who confirmed reciept and reported to immediatly sent referral for insurance verrification. NEIL contacted Patient RN to request medication times. Nurse reported 0800, 1400, and 1000 times for medication administration. NEIL informed Patient and of the above and explained the process moving forward. NEIL will continue to follow and report to Patient and .
--- NOTE | 2022-10-28 14:48 | NUR ---
Roll Operator met with Patient and to report accepting facilities, [facility] and [facility]. Patient selects [facility]. SW coordinated transport time with Douglas at [facility] establishing a 1400 transfer time. Patient, Nursing staff, and were informed of transport time.
--- NOTE | 2022-10-28 15:08 | NUR ---
pt left via wheelchair with [facility] transport. left with our oxygen tank but will return. discharge packet given to transport.
[2022-11-04] MEDS ORDERED: CEPHALEXIN500 M1 PO (13:57)
[2022-11-04] MEDS ORDERED: NYSTATIN100000 U/G TOP (15:18)
== END 2022-10-28 15:22 | DRG 492 ==
LOC: COL.ER 08:11 → SURG 09:18
PROVIDERS: Orthopaedic Surgery Sports Medicine; Personal Emergency Response Attendant; ADMIT Internal Medicine
PROC: 02HV33Z Insertion of Infusion Device into Superior Vena Cava, Percutaneous Approach (ICD-10-PCS; 2022-10-24)
PROC: 0QSH04Z Reposition Left Tibia with Internal Fixation Device, Open Approach (ICD-10-PCS; principal; 2022-10-27 14:00)
DX: S82.202A Unspecified fracture of shaft of left tibia, initial encounter for closed fracture (principal); J18.9 Pneumonia, unspecified organism; J96.01 Acute respiratory failure with hypoxia; M97.12XA Periprosthetic fracture around internal prosthetic left knee joint, initial encounter; I50.22 Chronic systolic (congestive) heart failure; Z66 Do not resuscitate; W19.XXXA Unspecified fall, initial encounter; S82.102A Unspecified fracture of upper end of left tibia, initial encounter for closed fracture; I25.10 Atherosclerotic heart disease of native coronary artery without angina pectoris; I11.0 Hypertensive heart disease with heart failure; Z95.1 Presence of aortocoronary bypass graft; E78.5 Hyperlipidemia, unspecified; Z79.01 Long term (current) use of anticoagulants; D64.9 Anemia, unspecified; R82.71 Bacteriuria; Z86.718 Personal history of other venous thrombosis and embolism; I73.9 Peripheral vascular disease, unspecified; F31.9 Bipolar disorder, unspecified; Z96.652 Presence of left artificial knee joint; Z88.8 Allergy status to other drugs, medicaments and biological substances; Z91.040 Latex allergy status; Z79.899 Other long term (current) drug therapy; F41.9 Anxiety disorder, unspecified; Z79.82 Long term (current) use of aspirin; Z87.891 Personal history of nicotine dependence; I48.91 Unspecified atrial fibrillation
CPT/HCPCS: A4314; A6197; A9270; A9284; C1713; C1751; C1776; J0690; J0696; J1100; J1170; J1644; J2250; J2270; J2370; J2795; L1830; P9016

== ENCOUNTER 2022-11-02 21:57 | Emergency (ER) | payer MEDICARE, MEDICAID ==
[~2022-11-02] VITALS: Ht 177.8 cm; Wt 104.5 kg
[~2022-11-02 21:57] MED LIST changes: +NEURONTIN300 MG/CAP PO
[2022-11-02 21:59] VITALS: TEMP 98.2
[2022-11-02 22:45] VITALS: BP 109/62; PULSE 89
[2022-11-04] MEDS ORDERED: CEPHALEXIN500 M1 PO (13:57)
[2022-11-04] MEDS ORDERED: NYSTATIN100000 U/G TOP (15:18)
== END 2022-11-02 22:50 ==
LOC: COL.ER 21:57
DX: M79.605 Pain in left leg (principal); Z86.718 Personal history of other venous thrombosis and embolism; Z86.711 Personal history of pulmonary embolism; Z79.01 Long term (current) use of anticoagulants; Z91.040 Latex allergy status
CPT/HCPCS: J3010; J7040

== ENCOUNTER 2022-11-07 15:24 | Emergency (ER) | payer MEDICARE, MEDICAID ==
[~2022-11-07] VITALS: Ht 177.8 cm; Wt 90.9 kg
[~2022-11-07 15:24] MED LIST changes: +DIFLUCAN150 MG PO; +NYSTATIN100000 U/G TOP
[2022-11-07 15:26] VITALS: TEMP 98.6
[2022-11-07 16:36] LABS: ALBUMIN 2.8 gm/dL (3.4-4.8); ALKALINE PHOSPHATASE 120 U/L (40-150); ANION GAP 14 mmol/L (7-16); AST,SGOT 20 U/L (5-34); BILIRUBIN,TOTAL 0.2 mg/dL (0.2-1.2); BLOOD UREA NITROGEN 34 mg/dL (10-20); CALCIUM 8.8 mg/dL (8.4-10.2); CARBON DIOXIDE 17 mmol/L (23-31); CHLORIDE 112 mmol/L (98-107); CREATINE KINASE 45 U/L (29-168); CREATININE, serum 1.87 mg/dL (0.57-1.11); GLUCOSE 108 mg/dL (70-99); LIPASE 39 U/L (8-78); POTASSIUM 4.7 mmol/L (3.5-4.5); SODIUM 143 mmol/L (136-145); TOTAL PROTEIN 6.5 gm/dL (6.2-8.1)
[2022-11-07 16:38] LABS: ALANINE AMINOTRANSFERASE < 6 U/L (0-55)
[2022-11-07 16:43] LABS: TROPONIN-I < 0.010 ng/mL (0.00-0.033)
[2022-11-07 18:20] LABS: BASO # 0.1 K/mm3 (0.0-0.2); BASO % 0.8 % (0.0-2.0); EOS # 0.2 K/mm3 (0.0-0.7); GRAN # 4.2 K/mm3 (1.4-6.5); GRAN % 66.5 % (42.2-75.2); LYMPH # 1.1 K/mm3 (1.2-3.4); LYMPH % 17.6 % (20.0-51.0); MEAN CELL VOLUME 88 fl (80.0-100.0); MEAN CORPUSCULAR HGB CONC 29 g/dl (33.0-37.0); MEAN PLATELET VOLUME 9.3 fl (7.4-10.4); MONO # 0.7 K/mm3 (0.1-0.6); MONO % 11.6 % (1.7-9.3); PLATELET COUNT 450 K/mm3 (130-400); RED BLOOD COUNT 3.05 M/mm3 (4.10-5.30)
[2022-11-07 18:21] LABS: HEMATOCRIT 26.9 % (37.0-47.0); HEMOGLOBIN 7.9 g/dl (12.5-16.0); MEAN CORPUSCULAR HEMOGLOBIN 26 pg (27-31)
[2022-11-07 18:27] LABS: INR 1.3 (0.8-3.0); PROTHROMBIN TIME 15.2 SECONDS (9.7-12.8)
[2022-11-07 20:39] VITALS: BP 97/57; PULSE 84
== END 2022-11-07 21:08 | disposition home or self-care (01) ==
LOC: COL.ER 15:24
PROVIDERS: Emergency Medicine
DX: R07.89 Other chest pain (principal); D64.9 Anemia, unspecified; E87.5 Hyperkalemia; R94.4 Abnormal results of kidney function studies; I48.91 Unspecified atrial fibrillation; N39.0 Urinary tract infection, site not specified; F41.9 Anxiety disorder, unspecified; Z79.02 Long term (current) use of antithrombotics/antiplatelets; Z86.79 Personal history of other diseases of the circulatory system; Z79.899 Other long term (current) drug therapy; Z95.5 Presence of coronary angioplasty implant and graft; Z87.891 Personal history of nicotine dependence

== ENCOUNTER 2023-05-04 15:43 | Emergency (ER) | payer MEDICARE, MEDICAID ==
[~2023-05-04] VITALS: Ht 177.8 cm; Wt 90.9 kg
[~2023-05-04 15:43] MED LIST changes: +CORDARONE200 MG/TAB; -COREG 25MG25 MG/TAB PO; +COREG12.5 MG; +KLONOPIN 0.5MG0.5 MG; +MACRODANTIN100 PO
[2023-05-04 15:51] VITALS: TEMP 98.4
[2023-05-04 16:31] LABS: BASO # 0.1 K/mm3 (0.0-0.2); BASO % 0.7 % (0.0-2.0); EOS # 0.3 K/mm3 (0.0-0.7); EOS % 4.1 % (0.0-4.0); GRAN # 4.7 K/mm3 (1.4-6.5); GRAN % 65.7 % (42.2-75.2); LYMPH # 1.2 K/mm3 (1.2-3.4); LYMPH % 17.3 % (20.0-51.0); MEAN CELL VOLUME 89 fl (80.0-100.0); MEAN CORPUSCULAR HGB CONC 27 g/dl (33.0-37.0); MEAN PLATELET VOLUME 11.6 fl (7.4-10.4); MONO # 0.9 K/mm3 (0.1-0.6); MONO % 12.1 % (1.7-9.3); PLATELET COUNT 219 K/mm3 (130-400); RED BLOOD COUNT 3.34 M/mm3 (4.10-5.30); REDCELL DISTRIBUTION WIDTH-CV 18.6 % (11.5-14.5)
[2023-05-04 16:38] LABS: HEMATOCRIT 29.6 % (37.0-47.0); MEAN CORPUSCULAR HEMOGLOBIN 24 pg (27-31)
[2023-05-04 16:45] LABS: ALANINE AMINOTRANSFERASE 15 U/L (0-55); ALBUMIN 3.3 gm/dL (3.4-4.8); ALKALINE PHOSPHATASE 124 U/L (40-150); ANION GAP 12 mmol/L (7-16); AST,SGOT 19 U/L (5-34); BILIRUBIN,TOTAL 0.2 mg/dL (0.2-1.2); BLOOD UREA NITROGEN 16 mg/dL (10-20); CALCIUM 9.4 mg/dL (8.4-10.2); CARBON DIOXIDE 19 mmol/L (23-31); CHLORIDE 113 mmol/L (98-107); CREATININE, serum 0.84 mg/dL (0.57-1.11); GLUCOSE 86 mg/dL (70-99); POTASSIUM 4.5 mmol/L (3.5-4.5); SODIUM 144 mmol/L (136-145); TOTAL PROTEIN 6.6 gm/dL (6.2-8.1)
[2023-05-04 16:54] LABS: TROPONIN-I < 0.010 ng/mL (0.00-0.033)
[2023-05-04] MEDS ORDERED: DOXYCYCLINE 10100 MG PO (18:50)
[2023-05-04 19:00] VITALS: BP 164/73; PULSE 69
== END 2023-05-04 19:00 | disposition home or self-care (01) ==
LOC: COL.ER 15:43
PROVIDERS: Personal Emergency Response Attendant
DX: J40 Bronchitis, not specified as acute or chronic (principal); R07.89 Other chest pain; R79.1 Abnormal coagulation profile; R79.89 Other specified abnormal findings of blood chemistry; Z91.040 Latex allergy status
CPT/HCPCS: J0696; J2270; J2405; Q9967

== ENCOUNTER 2023-09-24 13:41 | Emergency (ER) | payer MEDICARE, MEDICAID ==
[~2023-09-24] VITALS: Ht 177.8 cm; Wt 90.9 kg
[2023-09-24 13:44] VITALS: TEMP 98.8
[2023-09-24 14:07] LABS: BASO % 0.2 % (0.0-2.0); GRAN # 11.4 K/mm3 (1.4-6.5); GRAN % 76.2 % (42.2-75.2); LYMPH # 2.2 K/mm3 (1.2-3.4); LYMPH % 14.8 % (20.0-51.0); MEAN CELL VOLUME 88 fl (80.0-100.0); MEAN CORPUSCULAR HGB CONC 29 g/dl (33.0-37.0); MONO # 1.2 K/mm3 (0.1-0.6); MONO % 7.7 % (1.7-9.3); PLATELET COUNT 346 K/mm3 (130-400); RED BLOOD COUNT 3.71 M/mm3 (4.10-5.30); REDCELL DISTRIBUTION WIDTH-CV 22.6 % (11.5-14.5)
[2023-09-24 14:09] LABS: HEMATOCRIT 32.7 % (37.0-47.0); HEMOGLOBIN 9.5 g/dl (12.5-16.0); MEAN CORPUSCULAR HEMOGLOBIN 26 pg (27-31)
[2023-09-24 14:26] LABS: ALANINE AMINOTRANSFERASE 13 U/L (0-55); ALBUMIN 3.6 gm/dL (3.4-4.8); ALKALINE PHOSPHATASE 100 U/L (40-150); ANION GAP 10 mmol/L (7-16); AST,SGOT 17 U/L (5-34); BILIRUBIN,TOTAL 0.1 mg/dL (0.2-1.2); BLOOD UREA NITROGEN 18 mg/dL (10-20); CARBON DIOXIDE 24 mmol/L (23-31); CHLORIDE 109 mmol/L (98-107); CREATININE, serum 0.82 mg/dL (0.57-1.11); GLUCOSE 118 mg/dL (70-99); SODIUM 143 mmol/L (136-145); TOTAL PROTEIN 7.1 gm/dL (6.2-8.1)
[2023-09-24 14:41] LABS: TROPONIN-I < 0.010 ng/mL (0.00-0.033)
[2023-09-24] MEDS ORDERED: Ondansetron 4 MG/2 ML VIAL IV PRN (15:45)
[2023-09-24] MEDS ORDERED: Morphine 4 MG/ML VIAL IV ONE (15:45)
[2023-09-24 16:15] VITALS: BP 122/83; PULSE 51
== END 2023-09-24 16:15 | disposition home or self-care (01) ==
LOC: COL.ER 13:41
PROVIDERS: Personal Emergency Response Attendant
DX: I51.7 Cardiomegaly (principal); J90 Pleural effusion, not elsewhere classified; R00.1 Bradycardia, unspecified; Z95.1 Presence of aortocoronary bypass graft; Z91.040 Latex allergy status
CPT/HCPCS: J2270; J2405

== ENCOUNTER 2024-01-04 18:59 | Inpatient (IN) | payer MEDICARE, MEDICAID ==
[~2024-01-04] VITALS: Ht 177.8 cm; Wt 97.5 kg
[2024-01-04 19:29] LABS: ALANINE AMINOTRANSFERASE 11 U/L (0-55); ALBUMIN 3.2 g/dL (3.4-4.8); ALKALINE PHOSPHATASE 105 U/L (40-150); ANION GAP 10 mmol/L (7-16); AST,SGOT 21 U/L (5-34); BILIRUBIN,TOTAL 0.2 mg/dL (0.2-1.2); BLOOD UREA NITROGEN 16 mg/dL (10-20); CALCIUM 8.8 mg/dL (8.4-10.2); CHLORIDE 116 mEq/L (98-107); CREATININE, serum 0.87 mg/dL (0.57-1.11); GLUCOSE 87 mg/dL (70-99); POTASSIUM 3.7 mEq/L (3.5-4.5); SODIUM 143 mEq/L (136-145); TOTAL PROTEIN 6.3 g/dl (6.2-8.1)
[2024-01-04 19:45] LABS: TROPONIN-I < 0.010 ng/mL (0.00-0.033)
[2024-01-04 20:14] LABS: BASO # 0.1 K/mm3 (0.0-0.2); BASO % 1.1 % (0.0-2.0); EOS # 0.2 K/mm3 (0.0-0.7); EOS % 2.3 % (0.0-4.0); GRAN % 57.6 % (42.2-75.2); LYMPH % 28.6 % (20.0-51.0); MEAN CELL VOLUME 90 fl (80.0-100.0); MEAN CORPUSCULAR HGB CONC 29 g/dl (33.0-37.0); MONO # 0.7 K/mm3 (0.1-0.6); MONO % 10.3 % (1.7-9.3); PLATELET COUNT 307 K/mm3 (130-400); RED BLOOD COUNT 2.47 M/mm3 (4.10-5.30); REDCELL DISTRIBUTION WIDTH-CV 17.7 % (11.5-14.5)
[2024-01-04 20:19] LABS: HEMATOCRIT 22.2 % (37.0-47.0); HEMOGLOBIN 6.5 g/dl (12.5-16.0); MEAN CORPUSCULAR HEMOGLOBIN 26 pg (27-31)
[2024-01-04] MEDS ORDERED: Ondansetron 4 MG/2 ML VIAL IV PRN (21:30)
[2024-01-04] MEDS ORDERED: Polyethylene Glycol 3350 17 GM PDS PO PRN (21:30)
[2024-01-04] MEDS ORDERED: Docusate Sodium 100 MG CAP PO PRN (21:30)
[2024-01-04] MEDS ORDERED: Acetaminophen 325 MG TAB PO PRN (21:30)
[2024-01-04] MEDS ORDERED: diazePAM 5 MG TAB PO PRN (21:45)
[2024-01-04] MEDS ORDERED: Furosemide 40 MG TAB PO SCH (21:45)
[2024-01-04 22:30] VITALS: BP 177/92; PULSE 74; TEMP 98.1
[2024-01-04 22:50] VITALS: BP 174/90; PULSE 68; TEMP 98.1
[2024-01-04 23:06] VITALS: BP 166/60; PULSE 67; TEMP 97.9
[2024-01-04] MEDS ORDERED: OMNICEF 300MG300 MG PO (23:06)
[2024-01-04] MEDS ORDERED: NEURONTIN300 MG/CAP PO (23:10)
[2024-01-04] MEDS ORDERED: ELIQUIS 5MG PO (23:12)
[2024-01-04 23:21] VITALS: BP 165/78; PULSE 64; TEMP 98
[2024-01-04] MEDS ORDERED: Gabapentin 300 MG CAP PO SCH (23:29)
[2024-01-04] MEDS ORDERED: cloNIDine 0.1 MG TAB PO PRN (23:30)
--- NOTE | 2024-01-04 23:32 | NUR ---
Patient arrived to medical unit from ER at approximately 2215. Alert and oriented, and able to make needs known. Reports level 10 pain to chest. Notified Dr. Ireland, no new orders received. Patient tearful and upset about not receiving PRN Morphine. Did ask if she could take her Gabapenting. Called Dr. Ireland who gave ok to give her 100 mg Gabapentin. Also given Lasix per order as well as PRN Valium for anxiety. Blood started per protocol at 2251. Stayed with patient for first 15 minutes per protocol. No adverse effects noted, tolerating well at this time. Med rec updated, and notified Dr. Ireland about what was wrong, as she had already resumed/held home medications. Patient has blood running to peripheral IV to left wrist. Denies SOB and dyspnea at rest, but does with exertion. LS CTA. HRR. Telemetry in place. BSAx4. 1+ edema to LLE, this is chronic, and states that Dr. Bates is supposed to be placing a stent in her leg next month. Given sandwich and ice water as requested. Voices no furhter questions needs, or concerns at this time. In bed with call light within reach. Bed alarm on.
[2024-01-04 23:51] VITALS: BP 166/80; PULSE 68; TEMP 98
[2024-01-05] VITALS (16 sets, daily range): BP systolic 111–172; BP diastolic 45–86; PULSE 67–106; TEMP 97.5–99.3
[2024-01-05] MEDS ORDERED: Furosemide 40 MG/4 ML VIAL IV ONE (05:45)
--- NOTE | 2024-01-05 06:18 | NUR ---
Patient received 2 units of blood this shift. No adverse effects noted. Patient complains of constant pain all over, but declines Acetaminophen. Given 20 mg IV Lasix per Dr. Ireland. Patient currently resting in bed with call light within reach. High fall risk precautions in place. Bed alarm on.
[2024-01-05 06:35] LABS: BASO # 0.1 K/mm3 (0.0-0.2); BASO % 1.5 % (0.0-2.0); EOS # 0.1 K/mm3 (0.0-0.7); EOS % 1.9 % (0.0-4.0); GRAN # 2.8 K/mm3 (1.4-6.5); GRAN % 52.6 % (42.2-75.2); LYMPH # 1.8 K/mm3 (1.2-3.4); LYMPH % 33.6 % (20.0-51.0); MEAN CELL VOLUME 88 fl (80.0-100.0); MEAN CORPUSCULAR HGB CONC 30 g/dl (33.0-37.0); MEAN PLATELET VOLUME 10.3 fl (7.4-10.4); MONO # 0.5 K/mm3 (0.1-0.6); MONO % 10.2 % (1.7-9.3); PLATELET COUNT 278 K/mm3 (130-400); RED BLOOD COUNT 3.44 M/mm3 (4.10-5.30); REDCELL DISTRIBUTION WIDTH-CV 16.7 % (11.5-14.5)
[2024-01-05 06:41] LABS: HEMATOCRIT 30.4 % (37.0-47.0); HEMOGLOBIN 9.2 g/dl (12.5-16.0); MEAN CORPUSCULAR HEMOGLOBIN 27 pg (27-31)
[2024-01-05 06:50] LABS: CALCIUM 8.7 mg/dL (8.4-10.2); CREATININE, serum 0.89 mg/dL (0.57-1.11); POTASSIUM 3.7 mEq/L (3.5-4.5)
[2024-01-05] MEDS ORDERED: Isosorbide Mononitrate CR (24-HR) 60 MG TAB PO SCH (07:30)
[2024-01-05] MEDS ORDERED: Famotidine 20 MG TAB PO SCH (07:30)
[2024-01-05] MEDS ORDERED: Iron Sucrose 200 MG in NS 100 ML Over 15 minutes IV ONE (08:30)
[2024-01-05] MEDS ORDERED: Amiodarone 200 MG TAB PO SCH (09:00)
[2024-01-05] MEDS ORDERED: cloNIDine 0.1 MG TAB PO SCH (09:00)
[2024-01-05] MEDS ORDERED: Carvedilol 6.25 MG TAB PO SCH (09:00)
[2024-01-05] MEDS ORDERED: Gabapentin 100 MG CAP PO SCH (09:00)
[2024-01-05] MEDS ORDERED: Escitalopram 10 MG TAB PO SCH (09:00)
[2024-01-05] MEDS ORDERED: Empagliflozin 25 MG TAB PO SCH (09:00)
[2024-01-05] MEDS ORDERED: oxyCODONE 5 MG TAB PO PRN (09:15)
--- NOTE | 2024-01-05 09:42 | NUR ---
Pt. laying in bed, Pt. is A&OX3. Assessment complete. Iron transfusion started at this time. Pt. has had past reaction to a different Iron product per Pharmacy. Will monitor closely.
--- NOTE | 2024-01-05 10:03 | NUR ---
Initial visit; Patient thanked Patent Examiner for looking in on her and wishing her well. Jaimee was receptive to Patent Examiner keeping her in her prayers.
[2024-01-05] MEDS ORDERED: LEXAPRO 10MG10 MG PO (15:21)
[2024-01-05] MEDS ORDERED: DULCOLAX STOOL100 MG PO (15:22)
[2024-01-05] MEDS ORDERED: LEADER CLE17 GM/Dose PO (15:22)
--- NOTE | 2024-01-05 16:06 | NUR ---
Agriculture Technician met with patient and her , Brenda (ph#[phone]) to discuss discharge planning. Patient lives in [place] with Brenda and sees Dr. Carter for primary care. Patient gets medications from [facility] and has boht a walker and cane available at home. Patient stated she mostly uses "the gilliland" when she is at home, but takes either the cane or walker with her when she goes out. When shopping, she typically uses a motorized scooter that the store provides. Patient reported she is independent with ADLS and plans to return home at time of discharge. SW addressed that in a note, it advised she uses a hospital bed. Patient that is no longer the case and they got rid of the hospital bed. Patient advised she has DPOA-HC designating her spouse, but SW did not locate a copy. Discharge Plan; Home
--- NOTE | 2024-01-05 17:00 | NUR ---
Pt. has met discharge criteria. INT discontinued from lt. hand. Pt. tolerated well. Reviewed discharge paperwork and gave packet to the pt. Pt. voices understanding. Pt. assisted with getting dressed and escorted out by wheelchair.
[2024-01-05] MEDS ORDERED: Atorvastatin 40 MG TAB PO SCH (21:00)
== END 2024-01-05 17:00 | disposition home or self-care (01) | DRG 812 ==
LOC: COL.ER 18:59 → MEDICAL 21:36
PROVIDERS: Nurse Practitioner; ADMIT Internal Medicine
PROC: 30233N1 Transfusion of Nonautologous Red Blood Cells into Peripheral Vein, Percutaneous Approach (ICD-10-PCS; principal; 2024-01-04)
DX: D50.9 Iron deficiency anemia, unspecified (principal); I50.22 Chronic systolic (congestive) heart failure; I48.91 Unspecified atrial fibrillation; I25.10 Atherosclerotic heart disease of native coronary artery without angina pectoris; I25.2 Old myocardial infarction; I11.0 Hypertensive heart disease with heart failure; I73.9 Peripheral vascular disease, unspecified; F31.9 Bipolar disorder, unspecified; E78.5 Hyperlipidemia, unspecified; F41.9 Anxiety disorder, unspecified; Z79.891 Long term (current) use of opiate analgesic; R07.89 Other chest pain; Z79.01 Long term (current) use of anticoagulants; Z95.820 Peripheral vascular angioplasty status with implants and grafts; Z86.19 Personal history of other infectious and parasitic diseases; Z86.718 Personal history of other venous thrombosis and embolism; Z95.1 Presence of aortocoronary bypass graft; Z86.16 Personal history of COVID-19; Z87.891 Personal history of nicotine dependence
CPT/HCPCS: A9270; J1940; P9016; Q0138

== ENCOUNTER 2024-04-19 07:59 | Outpatient (RCR) | payer MEDICARE, MEDICAID ==
[2024-04-19] VITALS (10 sets, daily range): BP systolic 113–135; BP diastolic 62–88; PULSE 74–88; TEMP 96.5–98
[~2024-04-19] VITALS: Ht 177.8 cm; Wt 103.0 kg
[~2024-04-19 07:59] MED LIST changes: +DULCOLAX STOOL100 MG PO; +ELIQUIS 5MG PO; +LEADER CLE17 GM/Dose PO; +LEXAPRO 10MG10 MG PO
[2024-04-19] MEDS ORDERED: NS 250 ML IV SCH (09:15)
[2024-04-19] MEDS ORDERED: Acetaminophen 325 MG TAB PO PRN (09:45)
[2024-04-19] MEDS ORDERED: ASPIRIN E.C. 8181 MG PO (10:06)
[2024-04-19] MEDS ORDERED: CATAPRES 0.1MG0.1 MG PO (10:10)
--- NOTE | 2024-04-19 12:10 | NUR ---
Pt tolerated first unit of PRBC well. She had initial complaints on arrival of headache and nausea. These symptoms are resolved following zofran and tylenol. Pt sitting up in bed eating meal tray. She has been assisted to bedside commode. Transfers self, steady with standby assist.
--- NOTE | 2024-04-19 13:55 | NUR ---
Pt tolerated transfusions without issue. IV DC'd, site wrapped with coban. Pt exits dept with steady gait. She is free of complaints, respirations remain even and unlabored. She is assisted out to 's car by wheelchair.
== END 2024-04-19 13:55 | disposition home or self-care (01) ==
LOC: EUO 07:59
DX: D64.9 Anemia, unspecified (principal)
CPT/HCPCS: J7050; P9016

== ENCOUNTER 2024-05-01 00:43 | Emergency (ER) | payer MEDICARE, MEDICAID ==
[~2024-05-01] VITALS: Ht 177.8 cm; Wt 90.9 kg
[2024-05-01 00:54] VITALS: TEMP 97.7
[2024-05-01 01:15] LABS: BASO # 0.1 K/mm3 (0.0-0.2); BASO % 1.2 % (0.0-2.0); EOS # 0.2 K/mm3 (0.0-0.7); EOS % 1.6 % (0.0-4.0); GRAN # 6.4 K/mm3 (1.4-6.5); GRAN % 66.6 % (42.2-75.2); LYMPH # 1.9 K/mm3 (1.2-3.4); LYMPH % 20.1 % (20.0-51.0); MEAN CELL VOLUME 89 fl (80.0-100.0); MEAN CORPUSCULAR HGB CONC 30 g/dl (33.0-37.0); MONO % 10.2 % (1.7-9.3); PLATELET COUNT 297 K/mm3 (130-400); RED BLOOD COUNT 3.71 M/mm3 (4.10-5.30); REDCELL DISTRIBUTION WIDTH-CV 17.4 % (11.5-14.5)
[2024-05-01] MEDS ORDERED: Morphine 4 MG/ML VIAL IV ONE (01:15)
[2024-05-01 01:17] LABS: HEMOGLOBIN 9.8 g/dl (12.5-16.0); MEAN CORPUSCULAR HEMOGLOBIN 26 pg (27-31)
[2024-05-01 01:32] LABS: INR 1.3 (0.8-3.0); PROTHROMBIN TIME 13.7 SECONDS (9.7-12.8)
[2024-05-01 01:33] LABS: ALBUMIN 3.4 g/dL (3.4-4.8); BILIRUBIN,TOTAL 0.2 mg/dL (0.2-1.2); CALCIUM 9.4 mg/dL (8.4-10.2); CREATININE, serum 1.06 mg/dL (0.57-1.11); POTASSIUM 4.1 mEq/L (3.5-4.5); TOTAL PROTEIN 6.8 g/dl (6.2-8.1)
[2024-05-01 01:35] LABS: PARTIAL THROMBOPLASTIN TIME 38.6 SECONDS (26.0-37.0)
[2024-05-01 01:39] LABS: TROPONIN-I 0.024 ng/mL (0.00-0.033)
[2024-05-01 02:40] VITALS: BP 149/84; PULSE 64
== END 2024-05-01 02:41 | disposition home or self-care (01) ==
LOC: COL.ER 00:43
PROVIDERS: Emergency Medicine
DX: R07.9 Chest pain, unspecified (principal); I50.9 Heart failure, unspecified; Z87.891 Personal history of nicotine dependence
CPT/HCPCS: J2270